=== PATIENT | female | born 1970 | race Caucasian/White ===

== ENCOUNTER → 2017-11-13 08:24 | Outpatient (CLI) | payer BC, SELFPAY ==
--- NOTE | 2017-11-13 08:29 | MM_ITS ---
.. MM Dig screening mamm BI w/CAD CAD Screening ORDERING PHYSICIAN : Meng Waters MD PATIENT AGE: 47 years GENDER: Female COMPARISON: Previous mammograms: June 20 June 2015 INDICATION: 47-year-old. No hormones and has both ovaries. Currently left breast soreness and tenderness for 3 weeks. Patient has had previous cyst aspiration needle biopsy left breast. Benign results. Family history. Mother with breast cancer in her 40s premenopausal. Paternal grandmother also with breast cancer TECHNIQUE: Standard CC and MLO images were obtained. R2 CAD reviewed. FINDINGS: Inhomogeneous dense breast tissue bilaterally. The prior films however very helpful and supportive this is a stable overall pattern similar to studies from 2014. No new dominant mass nor suspicious calcifications in either breast. Ultrasound may be useful compliment to mammography in breast of this increased density character particularly if any palpable areas arise RIGHT & LEFT BREAST:Dense fibroglandular elements are seen throughout but most evident towards central and upper-outer quadrant both right and left breast.. No significant new findings nodularity laterally similar to previous studies Overall adequate stable appearance both breast =IMPRESSION:===== No significant new findings. Stable bilateral mammogram. Dense inhomogeneous breast bilaterally decreases to the mammography. Would also tend to encourage self breast examination. If any palpable area should arise ultrasound be useful compliment mammography in breast of this increased density Follow-up bilateral annual mammogram 1 year BI-RADS Category: 2 Benign Finding(s) RECOMMENDED FOLLOW-UP: 1YR - 1 YEAR FOLLOW-UP (A letter has been sent to the patient regarding results of the study.)
== END ==
PROVIDERS: Family Provider Family Medicine; PCP Family Medicine; Visit Provider Family Medicine
DX: Z12.31 Encounter for screening mammogram for malignant neoplasm of breast (principal)
CPT/HCPCS: 77067

== ENCOUNTER → 2017-11-17 08:32 | Outpatient (CLI) | payer BC, SELFPAY ==
--- NOTE | 2017-11-17 08:39 | XR_ITS ---
XR thoracic spine 3V COMPARISON: PA and lateral chest 11/15/2017 HISTORY: Possible abnormality adjacent to T9 vertebral body seen on chest film TECHNIQUE: AP and lateral views and swimmer's view cervicothoracic junction FINDINGS: There is normal curvature and alignment. All thoracic vertebrae appear intact. All pedicles are intact. There is no paraspinal mass. The questionable opacity seen on the chest film is not definitely seen on the thoracic spine films. IMPRESSION: Negative thoracic spine
== END ==
PROVIDERS: PCP Family Medicine; Visit Provider Nurse Practitioner Family
DX: R93.8 Abnormal findings on diagnostic imaging of other specified body structures (principal)
CPT/HCPCS: 72072

== ENCOUNTER → 2018-06-04 10:15 | Outpatient (CLI) | payer BC, SELFPAY ==
--- NOTE | 2018-06-04 10:26 | XR_ITS ---
XR hip RT 2-3V w/pelvis, XR hip LT 2-3V w/pelvis Ordering Physician: Maria Guadalupe Arellano MD Patient Age: 48 years: Female HISTORY: ITS.REASON: HIP PAIN No trauma. Bilateral hip pain most pronounced the left. Pain 6 months TECHNIQUE: Right hip: AP frog-leg view Left hip: AP frog-leg view AP pelvis included COMPARISON :July 2017 left hip and AP pelvis ======== RIGHT HIP: AP frog-leg view The right hip joint spaces well-maintained. The femoral head and neck and trochanteric appear intact. Femoral head normal contour and density. Small benign herniation pit incidentally noted at right subcapital region ===== LEFT HIP: AP frog-leg view Left hip joint space well maintained. Left femoral head abnormal density and contour. Femoral neck and trochanteric region unremarkable AP pelvis. No significant findings at the pelvis sacrum and SI joints unremarkable. Iliac bone intact. Acetabula region appear intact The hips appear symmetrical. Superior and inferior ramus and pubis unremarkable. The left hip shows no change since July 2017 IMPRESSION: ...... Negative/ & normal Right and Left Hip. Negative AP pelvis.
== END ==
PROVIDERS: PCP Family Medicine; Visit Provider Emergency Medicine
DX: M25.552 Pain in left hip (principal)
CPT/HCPCS: 73502

== ENCOUNTER 2018-06-21 08:56 | Outpatient (RCR) | payer BC, SELFPAY ==
--- NOTE | 2018-06-21 10:05 | HMH.PTOPEV ---
PT Outpatient Evaluation Rehab PT Outpatient Evaluation Start: 06/21/18 09:32 Freq: Status: Active Protocol: Document 06/21/18 09:33 SALINA (Rec: 06/21/18 10:05 SALINA [id number]) Electronically Signed By Chago Mansfield, PT 06/21/18 09:33 Outpatient Therapy Subjective History Subjective History Pt reports insidious onset L sided LBP ~6 months ago. Pt reports L LE s/s from L glut mm area down to L ankle, N&T, pain, and some weakness. Pt reports s/s relief with trxn force applied to L LE. Chief Complaint Pain Paresthesia Weakness Symptom Type Ache Sharp Dull Stabbing Numbness Tingling Symptoms Relieved By Rest/Positioning Symptoms Aggravated By Bending/Stooping Physical Activity Walking Lifting Prior Functional Limitations Lifting Walking Bending/Stooping Current Functional Limitations Lifting Housework Sitting Walking Bending/Stooping Symptom Description Constant but Variable Level of pain today (0-10) 7 Pain scale - at its best (0-10) 5 Pain scale - at its worst (0-10) 10 Lumbopelvic Eval Posture Thoracic Spine Posture Standing Position Neutral Lumbar Spine Posture Standing Position Neutral Assistive device Assistive Devices None / NA Gait Observation General Gait Pattern Observation Antalgic Gait Palapation tenderness left lumbar spinal tenderness Yes: 3/4 paraspinal tenderness Yes: 3/4 buttock tenderness Yes: 3/4 Accessory Movement L-spine Vertebrae Accessory Movements Central P/A Barnard that Elicit Symptoms L4 right L5 right S1 right Range of Motion Lumbar Spine Active Flexion Range of 0-60 Motion (degrees) Lumbar Spine Active Extension Range of 0-10 Motion (degrees) Left Lumbar Spine Lateral Flexion Active 0-15 Range of Motion (degrees) Right Lumbar Spine Lateral Flexion 0-20 Active Range of Motion (degrees) Lumbar Spine ROM Limitations Pain Manual Muscle Test Right Knee Extension Str
== END 2018-06-21 09:00 | disposition home or self-care (01) ==
LOC: PT 08:56
PROVIDERS: Visit Provider Emergency Medicine
DX: G57.02 Lesion of sciatic nerve, left lower limb (principal)
CPT/HCPCS: 97010; 97012; 97014; 97110; 97163; G0283

== ENCOUNTER → 2018-11-02 11:08 | Outpatient (CLI) | payer BC, SELFPAY | PROVIDERS: Visit Provider Podiatrist | DX: L03.031 Cellulitis of right toe (principal) | CPT/HCPCS: 87070; 87077; 87186; 87205 ==

== ENCOUNTER 2020-08-25 19:50 | Emergency (ER) | payer OTHER, SELFPAY ==
[2020-08-25 20:10] VITALS: BP 140/86; PULSE 77; RESP 20; TEMP 37.2; O2SAT 99; BMI 26.2
[2020-08-25 20:31] LABS: UTC Strep Screen (Rapid) Negative (Negative)
--- NOTE | 2020-08-25 20:37 | HMH.EDUTC ---
[facility] [place] Clinical Impression: URI (upper respiratory infection) Qualifiers: URI type: unspecified URI Qualified Code(s): J06.9 - Acute upper respiratory infection, unspecified Disposition: Home, Self-Care Condition on Discharge: Good Instructions: Sore Throat, Sinusitis, DI for COVID-19 (Suspected or Confirmed ), Coronavirus Disease 2019 Additional Instructions: *Monitor Temp, Over the counter Motrin or Tylenol as directed/as needed Tylenol every 4 hours and Motrin every 6 hours (as long as your family doctor has told you that you can take it) for fever or pain. and straight to ER if unable to lower temp less than 101.0 after medication given *Warm salt water gargles may help to soothe the throat *Throat Lozenges *Warm fluids like tea with honey may help to soothe the throat *Sleep elevated *Humidifier/Vaporizer Your throat swab was sent for culture. Those results are typically sent to your primary care. Be sure to follow up in 2-3 days with your family doctor/primary care physician if no improvement so they can review those result and treat if necessary. If you don?t have a primary care doctor, I recommend you get one but in the mean time, you will have to return to a walk in clinic Follow up IMMEDIATELY for new or worsening symptoms or no Noticeable improvement over the next 48-72 hours. 911 for difficulty breathing or swallowing You were tested for today for COVID19 your test result should be back in the next 24-48 hours, you may call to the [facility] to see if your test results are back in the next 48 hours [phone] [facility] hours are 9am-9pm You was given a handout with instructions for Self Quarantine and Self isolation for while you wait on test results and what to do if they are positive If you are positive the Health Dept will be contacting you also Prescriptions: methylPREDNISolone [Medrol 4mg tab] 4 mg PO DIRECTED #21 tab Transmission Status: Pending to Clinic [facility] Azithromycin [Z-Yuriy 250mg Tab] 250 mg PO DIRECTED #6 tab Transmission Status: Pending to Clinic Pharmacy [facility] Referrals: Meng Waters MD [Primary Care Provider] - As needed Forms: Work/School Release Time of Disposition: 20:41 Medical Decision Making - Musa Inquiry Pt receiving controlled substance: No Musa was queried for this patient: No Vital Signs: 08/25/20 20:10 Temperature 99.0 F Temperature Source Oral Pulse Rate [Right Brachial] 77 Respiratory Rate 20 Blood Pressure [Right Arm] 140/86 Blood Pressure Mean [Right Arm] 104 Blood Pressure Source [Right Arm] Automatic Cuff Blood Pressure Position [Right Arm] Sitting 02 Sat by Pulse Oximetry 99 Oxygen Delivery Method Room Air - Lab Data Lab results reviewed: Yes: I reviewed the patient's lab results. Lab Results 08/25/20 20:16: Strep Scn Rapid Clinic Negative Orders (Tests/Meds): ORDERS Category Date Time Status Covid-19 Nasal PCR Sendout P&C Stat Lab 08/25/20 20:17 Ordered Strep Screen Confirmation Stat Micro 08/25/20 20:16 Received Medical Decision Narrative: Patient state that she has take azithromycin and medrol dose pack before without reaction or complications [facility] [place] - General Stated complaint: sore throa headache congestion Time Seen by Provider: 08/25/20 20:37 Mode of Arrival: Ambulatory Source of Information: Patient Limitations: No Limitations Description of Symptoms (Recalled from Triage Doc. by RN): PATIENT C/O SORE THROAT, CONGESTION, HEADACHES, FATIGUE SINCE YESTERDAY. RECENT TRAVEL TO [facility] Symptoms (Recalled from RN notes): Yes Resp Symptoms (Recalled from RN notes): No Skin Symptoms (Recalled from RN notes): No MS Symptoms (Recalled from RN notes): No Functional Status (Recalled from RN notes): WNL - History of Present Illness Provider Complaint: Patient states that she has been traveling from [place] States that she noticed she was having sore throat, sinus congestion, headache, loss of v
[2020-08-25 20:40] VITALS: BP 140/86; PULSE 77; RESP 20; TEMP 37.2; O2SAT 99
[2020-08-27 10:11] LABS: Covid-19 Nasal PCR Sendout P&C Negative
== END 2020-08-25 20:49 | disposition home or self-care (01) ==
PROVIDERS: Emergency Provider Nurse Practitioner; PCP Family Medicine
DX: Z20.822 Contact with and (suspected) exposure to COVID-19 (principal); J06.9 Acute upper respiratory infection, unspecified; F17.210 Nicotine dependence, cigarettes, uncomplicated; Z79.899 Other long term (current) drug therapy
CPT/HCPCS: 87880; 99202; G0463; U0004

== ENCOUNTER → 2020-10-28 09:47 | Outpatient (CLI) | payer OTHER, SELFPAY ==
--- NOTE | 2020-10-28 | XR_ITS ---
PROCEDURE: XR WRIST RT MIN 3V CLINICAL INDICATION: COMPARISON: No exams were available for comparison FINDINGS: No fracture or dislocation. No lytic or blastic change. There is normal mineralization. The joint spaces are well-preserved. No significant degenerative/arthritic changes. No erosive changes evident. Other findings:Old screw holes present in the distal shaft of the ulna IMPRESSION: No acute findings. Dictated by: Musa Barragan MD 10/28/2020 16:29 Musa Barragan MD in [place] 10/28/2020 16:29
--- NOTE | 2020-10-28 | XR_ITS ---
PROCEDURE: XR HAND RT MIN 3V CLINICAL INDICATION: PAIN COMPARISON: No exams were available for comparison FINDINGS: No fracture or dislocation. No lytic or blastic change. There is normal mineralization. Mild osteoarthritic changes are present involving the DIP joint of the 3rd digit and the interphalangeal joint of the 1st digit. Other findings:Lucencies with sclerotic margins are present in the distal ulna consistent with screw holes IMPRESSION: Mild osteoarthritic change Dictated by: Musa Barragan MD 10/28/2020 16:28 Musa Barragan MD in [place] 10/28/2020 16:28
[2020-10-28 10:54] LABS: Basophils # 0.1 K/mm3 (0-0.2); Basophils % 0.6 % (0.1-2.0); Eosinophils # 0.2 K/mm3 (0.0-0.4); Eosinophils % 1.9 % (0.1-12.0); Hematocrit 45.3 % (37.0-47.0); Hemoglobin 15.1 g/dL (12.2-16.2); Lymphocytes # 3.2 K/mm3 (0.7-4.5); Lymphocytes % 29.5 % (10-50); Mean Corpuscular HGB Conc 33.2 g/dL (31.8-35.4); Mean Corpuscular Hemoglobin 29.1 pg (27.0-31.2); Mean Corpuscular Volume 87.7 fl (81-99); Mean Platelet Volume 7.7 fl (7.4-10.4); Monocytes # 0.5 K/mm3 (0.1-1.0); Monocytes % 4.2 % (1.7-9.3); Neutrophils # 6.9 K/mm3 (1.8-7.8); Neutrophils % 63.7 % (37.0-80.0); Platelet Count 317 K/mm3 (142-424); Red Blood Count 5.17 M/mm3 (4.20-5.40); Red Cell Distribution Width 13.1 % (11.5-17.5); White Blood Count 10.8 K/mm3 (4.8-10.8)
== END ==
PROVIDERS: PCP Family Medicine; Visit Provider Physician Assistant
DX: Z20.822 Contact with and (suspected) exposure to COVID-19 (principal); M79.641 Pain in right hand; M25.531 Pain in right wrist
CPT/HCPCS: 36415; 73110; 73130; 85025; U0003

== ENCOUNTER → 2020-11-09 10:15 | Outpatient (CLI) | payer OTHER, SELFPAY ==
[2020-11-09 11:10] LABS: Uric Acid 5.5 mg/dl (2.5-6.2)
[2020-11-09 11:58] LABS: Erythrocyte Sedimentation Rate 16 mm/hr (0-20)
[2020-11-10 13:15] LABS: RA Latex Turbid. <10.0 IU/mL (0.0-13.9)
[2020-11-11 17:21] LABS: Antinuclear Antibodies, IFA Negative (.)
== END ==
PROVIDERS: Visit Provider Physician Assistant
DX: M25.50 Pain in unspecified joint (principal)
CPT/HCPCS: 36415; 84550; 85651; 86038; 86431

== ENCOUNTER → 2020-11-13 10:08 | Outpatient (CLI) | payer OTHER, SELFPAY ==
--- NOTE | 2020-11-13 10:10 | MM_ITS ---
PROCEDURE: MM DIG SCREENING MAMM BI W/CAD Digital Breast Tomosynthesis Included CLINICAL INDICATION: SCREENING There is a history of breast cancer patient's mother diagnosed in her 40s, the patient's paternal aunt diagnosed at age 48 and maternal grandmother age unknown. There has been a previous biopsy left breast for benign disease. COMPARISON: MG DMDB DIG MAMM-DX RADHA from 06/15/2015 MG DMSB DIG MAMM-SCREEN RADHA from 06/16/2016 MG SCBI MM Dig screening mamm BI w/CAD from 11/13/2017 TECHNIQUE: Standard CC and MLO images and 3D Tomosynthesis was obtained. R2 CAD reviewed. FINDINGS: There is a diffusely dense and heterogenic parenchymal pattern lessening the sensitivity of mammography. There is a mole marker left breast. There is a benign-appearing microcalcification in each breast. There is a stable benign-appearing nodular density upper-outer quadrant right breast. There is no suspicious lesion and no suspicious microcalcifications. IMPRESSION: Diffusely dense parenchymal pattern with no suspicious lesions seen, however recommend monthly breast self-examination BI-RAD Category: 2 Benign Finding(s) FOLLOW-UP: 1YR 1 Year Follow-up (A letter has been sent to the patient regarding results of the study.) Dictated by: Dr. Haris Jane MD 11/15/2020 16:21 Dr. Haris Jane MD in [place] 11/15/2020 16:21
== END ==
PROVIDERS: PCP Family Medicine; Visit Provider Physician Assistant
DX: Z12.31 Encounter for screening mammogram for malignant neoplasm of breast (principal)
CPT/HCPCS: 77063; 77067

== ENCOUNTER → 2021-03-26 10:04 | Outpatient (CLI) | payer OTHER, SELFPAY ==
--- NOTE | 2021-03-26 10:09 | XR_ITS ---
PROCEDURE: XR CHEST 2V CLINICAL HISTORY: HEMOPTYSIS COMPARISON: CR CXR CHEST(2 VIEWS-NOT PORTABLE) from 05/08/2017 CR CXR2V XR chest 2V from 11/15/2017 FINDINGS: The cardiomediastinal silhouette and pulmonary vascularity are within normal limits. The lungs are clear without infiltrates, suspicious nodules, or pleural effusions. No acute bony abnormalities. IMPRESSION: No acute findings. Dictated by: Musa Barragan MD 03/26/2021 11:18 Musa Barragan MD in [place] 03/26/2021 11:18
--- NOTE | 2021-03-26 10:09 | XR_ITS ---
PROCEDURE: XR SHOULDER LT MIN 2V CLINICAL INDICATION: LT SHOULDER PAIN COMPARISON: No exams were available for comparison FINDINGS: No fracture or dislocation. No lytic or blastic change. There is normal mineralization. The joint spaces are well-preserved. No significant degenerative/arthritic changes. No erosive changes evident. Other findings:None. IMPRESSION: No acute findings. Dictated by: Musa Barragan MD 03/26/2021 11:17 Musa Barragan MD in [place] 03/26/2021 11:17
== END ==
PROVIDERS: PCP Physician Assistant; Visit Provider Physician Assistant
DX: M25.512 Pain in left shoulder (principal); R04.2 Hemoptysis
CPT/HCPCS: 71046; 73030

== ENCOUNTER 2021-04-12 14:14 | Emergency (ER) | payer OTHER, SELFPAY ==
[2021-04-12 17:00] VITALS: BP 0/0; PULSE 0; RESP 0; TEMP -17.7; TEMP 0
== END 2021-04-12 17:02 | disposition left against medical advice (07) ==
LOC: UTC 14:16
PROVIDERS: Emergency Provider Nurse Practitioner; PCP Family Medicine
DX: Z53.21 Procedure and treatment not carried out due to patient leaving prior to being seen by health care provider (principal)

== ENCOUNTER → 2021-04-30 16:17 | Outpatient (CLI) | payer OTHER, SELFPAY ==
--- NOTE | 2021-04-30 16:18 | MR_ITS ---
PROCEDURE INFORMATION: Exam: MR Left Upper Extremity Joint Without Contrast; Shoulder Exam date and time: 04/30/2021 4:18 PM Age: 51 years old Clinical indication: Pain; Shoulder; Left; Additional info: Shoulder pain. Unable to lift arm [id number]. No injury or trauma. Shoulder pain. Prior x-ray 03-26-21 TECHNIQUE: Imaging protocol: MR of the Left upper extremity without contrast. Exam focused on the shoulder. COMPARISON: CR XR SHOULDER LT MIN 2V 03/26/2021 10:11 AM FINDINGS: Bones and cartilage: Mild bone marrow edema surrounds the acromioclavicular joint and extends into the acromion. In the absence of a discrete injury, recommend correlation with repetitive microtrauma to produce a stress reaction. The acromioclavicular joint demonstrates normal alignment without significant degenerative change. There is no acute fracture or dislocation. No aggressive bone lesions are present. The undersurface of the acromion has a normal curvature, consistent with a type II acromion. Joint spaces: No significant joint effusion. Glenoid labrum: Unremarkable. No evidence of tear. Bursae: A mild amount of fluid is present in the subacromial-subdeltoid bursa. Supraspinatus tendon: Moderate tendinosis involves the supraspinatus tendon. Infraspinatus tendon: Low-grade partial-thickness tearing involves the bursal surface of the infraspinatus tendon. Moderate tendinosis involves the adjacent intact infraspinatus tendon. Subscapularis tendon: No tear or significant tendinosis involves the subscapularis tendon. Teres minor tendon: No tear or significant tendinosis involves the teres minor tendon. Tendon of biceps brachii: The long head of the biceps tendon is normally situated within the bicipital groove. Glenohumeral ligaments: Unremarkable. Muscles: The rotator cuff musculature demonstrates no significant edema or atrophy. Soft tissues: Moderate soft tissue edema surrounds the acromioclavicular joint IMPRESSION: 1. Nonspecific bone marrow edema and soft tissue edema surrounding the acromioclavicular joint without malalignment or significant degenerative change. Recommend correlation with repetitive microtrauma in the absence of a discrete traumatic event. 2. Low-grade partial-thickness tearing of the infraspinatus tendon bursal surface, superimposed on moderate tendinosis. 3. Moderate supraspinatus tendinosis. 4. Mild subacromial-subdeltoid bursitis.
== END ==
PROVIDERS: PCP Family Medicine; Visit Provider Nurse Practitioner Family
DX: M25.512 Pain in left shoulder (principal)
CPT/HCPCS: 73221

== ENCOUNTER → 2021-11-19 10:52 | Outpatient (CLI) | payer OTHER, SELFPAY ==
--- NOTE | 2021-11-19 11:01 | US_ITS ---
FINAL REPORT CLINICAL HISTORY: CHOLECYSTITIS FINDINGS: Ultrasound images of the right upper quadrant were obtained. The liver parenchyma is increased echogenicity. The gallbladder is well visualized and the wall appears normal. There is minimal sludge in the gallbladder. There are no gallstones. The common duct is normal. Limited images of the right kidney are unremarkable. IMPRESSION: Fatty infiltration of the liver. Minimal sludge in the gallbladder. Reviewed, Interpreted and Dictated by Geo Carranza MD Transcribed by Yahir Brice Authenticated by Geo Carranza MD on 11/19/2021 01:02:38 PM [facility]
== END ==
PROVIDERS: PCP Family Medicine; Visit Provider Family Medicine
DX: K81.9 Cholecystitis, unspecified (principal)
CPT/HCPCS: 76705

== ENCOUNTER → 2021-11-26 10:48 | Outpatient (CLI) | payer OTHER, SELFPAY ==
--- NOTE | 2021-11-26 10:55 | FL_ITS ---
FINAL REPORT CLINICAL HISTORY: epigastric pain FINDINGS: UPPER GI WITH SBFT UPPER GI EXAM HISTORY: Abdominal pain, nausea. PROCEDURE: The patient ingested barium. Effervescent crystals were also administered. Spot and overhead films were obtained. FINDINGS: The esophagus is normal. There is no hiatal hernia. There is no gastroesophageal reflux. Peristalsis is normal. The rugal fold pattern of the stomach is normal. The duodenal bulb is normal. FLUOROSCOPY TIME: 1 minute IMPRESSION: Normal upper GI. SBFT: The traveling inventory associate film is normal. There is no evidence of obstruction. The mucosal fold pattern is normal. The terminal ilium is normal. IMPRESSION: Normal SBFT. Reviewed, Interpreted and Dictated by Geo Carranza MD Transcribed by DEBBIE Rodriguez Authenticated by Geo Carranza MD on 12/03/2021 11:16:[address] [facility]
== END ==
PROVIDERS: PCP Family Medicine; Visit Provider Family Medicine
DX: R10.13 Epigastric pain (principal)
CPT/HCPCS: 74246; 74248

== ENCOUNTER → 2021-12-08 10:18 | Outpatient (CLI) | payer OTHER, SELFPAY ==
--- NOTE | 2021-12-08 10:22 | NM_ITS ---
FINAL REPORT CLINICAL HISTORY: EPIGASTRIC PAIN 10:30am 8.37 mci tc choletec 1.4 mcg cck no pain with cck FINDINGS: Sequential anterior projection images of the abdomen were obtained after the intravenous injection of 8.37 mCi technetium 99m Choletec. There is normal uptake of radiotracer by the liver. The bile ducts are visualized by 15 minutes. Gallbladder activity is seen by 30 minutes. Bowel activity is noted by 20 minutes. After 1 hour, 1.0 ?g of CCK was injected intravenously for calculation of gallbladder ejection fraction. The gallbladder ejection fraction is 82%, which is within normal limits. IMPRESSION: No evidence of cystic duct or bile duct obstruction. Normal gallbladder ejection fraction of 82%. Reviewed, Interpreted and Dictated by Nate Jeffries III, MD Transcribed by Yahir Brice Authenticated by Nate Jeffries III, MD on 12/08/2021 01:04:55 PM [facility]
== END ==
PROVIDERS: PCP Family Medicine; Visit Provider Family Medicine
DX: R10.13 Epigastric pain (principal)
CPT/HCPCS: 78227; A9537; J2805

== ENCOUNTER → 2021-12-17 08:21 | Outpatient (CLI) | payer OTHER, SELFPAY ==
--- NOTE | 2021-12-17 08:25 | MM_ITS ---
PROCEDURE INFORMATION: Exam: MG Bilateral Screening 3D Mammography Exam date and time: 12/17/2021 8:24 AM Age: 51 years old Clinical indication: Screening mammogram. TECHNIQUE: Imaging protocol: Bilateral Screening tomosynthesis and 2D mammography including computer-aided detection (CAD) when performed. COMPARISON: 1. MG MM DIG SCREENING MAMM BI W/CAD 11/13/2020 10:08 AM 2. MG SCBI MM Dig screening mamm BI w/CAD 11/13/2017 8:39 AM 3. MG DMSB DIG MAMM-SCREEN RADHA 06/16/2016 8:54 AM 4. MG DMDB DIG MAMM-DX RADHA 06/15/2015 2:33 PM FINDINGS: MAMMOGRAPHY: Breast composition: The breast is heterogeneously dense, which may obscure small masses. Mass: None. Architectural distortion: No new or suspicious architectural distortion. Calcifications: No new or suspicious calcifications are present Asymmetric density: No new or suspicious asymmetric density is present Skin thickening: None. Axillary adenopathy: None. IMPRESSION: No mammographic evidence of malignancy. Recommend annual screening mammography unless otherwise clinically indicated. ASSESSMENT: BI-RADS category 1: Negative
== END ==
PROVIDERS: PCP Family Medicine; Visit Provider Family Medicine
DX: Z12.31 Encounter for screening mammogram for malignant neoplasm of breast (principal)
CPT/HCPCS: 77063; 77067

== ENCOUNTER → 2022-01-05 10:40 | Outpatient (CLI) | payer OTHER, SELFPAY ==
--- NOTE | 2022-01-05 10:47 | XR_ITS ---
FINAL REPORT CLINICAL HISTORY: LT HIP PAIN COMPARISON: June 04, 2018 FINDINGS: 2 views of the left hip were obtained. There is no acute fracture or dislocation. The joint spaces are intact. There are no soft tissue abnormalities. IMPRESSION: No acute process. Reviewed, Interpreted and Dictated by Nate Jeffries III, MD Transcribed by Yahir Brice Authenticated by Nate Jeffries III, MD on 01/05/2022 12:45:47 PM [facility]
--- NOTE | 2022-01-05 10:47 | XR_ITS ---
FINAL REPORT CLINICAL HISTORY: RT HIP PAIN COMPARISON: June 04, 2018 FINDINGS: 2 views of the right hip and an AP pelvis were obtained. There is no acute fracture or dislocation. The joint spaces are intact. There are no soft tissue abnormalities. IMPRESSION: No acute process. Reviewed, Interpreted and Dictated by Nate Jeffries III, MD Transcribed by Yahir Brice Authenticated by Nate Jeffries III, MD on 01/05/2022 12:45:51 PM [facility]
== END ==
PROVIDERS: PCP Family Medicine; Visit Provider Physician Assistant
DX: M25.561 Pain in right knee; M25.551 Pain in right hip
CPT/HCPCS: 73502

== ENCOUNTER → 2022-01-10 08:16 | Outpatient (CLI) | payer OTHER, SELFPAY ==
--- NOTE | 2022-01-10 08:22 | XR_ITS ---
FINAL REPORT CLINICAL HISTORY: ACUTE RIGHT KNEE PAIN FINDINGS: Three views of the right knee reveal no evidence of fracture or dislocation. The bony alignment is normal. The joint spaces are preserved. There is no evidence of joint effusion. No localized soft tissue abnormality is identified. IMPRESSION: No acute abnormality identified. Reviewed, Interpreted and Dictated by Nate Jeffries III, MD Transcribed by Tory Morelos Authenticated and . [facility]
== END ==
PROVIDERS: PCP Family Medicine; Visit Provider Physician Assistant
DX: M25.561 Pain in right knee (principal)
CPT/HCPCS: 73562

== ENCOUNTER → 2022-06-22 08:45 | Outpatient (CLI) | payer OTHER, SELFPAY ==
[2022-06-22 09:08] LABS: Influenza A, PCR Not Detected (NotDetected); Influenza B, PCR Not Detected (NotDetected)
[2022-06-22 09:16] LABS: Basophils # 0.1 K/mm3 (0-0.2); Basophils % 1.6 % (0.1-2.0); Eosinophils # 0.2 K/mm3 (0.0-0.4); Eosinophils % 3.4 % (0.1-12.0); Hematocrit 43.2 % (37.0-47.0); Hemoglobin 14.4 g/dL (12.2-16.2); Lymphocytes % 49.3 % (10-50); Mean Corpuscular HGB Conc 33.3 g/dL (31.8-35.4); Mean Corpuscular Hemoglobin 29.4 pg (27.0-31.2); Mean Corpuscular Volume 88.2 fl (81-99); Mean Platelet Volume 8.4 fl (7.4-10.4); Monocytes # 0.3 K/mm3 (0.1-1.0); Monocytes % 4.8 % (1.7-9.3); Neutrophils # 2.5 K/mm3 (1.8-7.8); Neutrophils % 40.8 % (37.0-80.0); Platelet Count 332 K/mm3 (142-424); Red Blood Count 4.89 M/mm3 (4.20-5.40); Red Cell Distribution Width 13.9 % (11.5-17.5); White Blood Count 6.1 K/mm3 (4.8-10.8)
[2022-06-22 10:37] LABS: Coronavirus 19, PCR Detected (NotDetected)
== END ==
PROVIDERS: PCP Family Medicine; Visit Provider Physician Assistant
DX: U07.1 COVID-19 (principal)
CPT/HCPCS: 36415; 85025; C9803; U0003; U0005

== ENCOUNTER → 2022-12-27 08:18 | Outpatient (CLI) | payer OTHER, SELFPAY ==
--- NOTE | 2022-12-27 08:25 | MM_ITS ---
PROCEDURE INFORMATION: Exam: MG Bilateral Screening 3D Mammography Exam date and time: 12/27/2022 8:24 AM Age: 52 years old Clinical indication: Screening mammogram TECHNIQUE: Imaging protocol: Bilateral Screening tomosynthesis and 2D mammography including computer-aided detection (CAD) when performed. COMPARISON: 1. MG MM DIG SCREENING MAMM BI W/CAD 12/17/2021 8:24 AM 2. MG MM DIG SCREENING MAMM BI W/CAD 11/13/2020 10:08 AM 3. MG SCBI MM Dig screening mamm BI w/CAD 11/13/2017 8:39 AM 4. MG DMSB DIG MAMM-SCREEN RADHA 06/16/2016 8:54 AM FINDINGS: MAMMOGRAPHY: Breast composition: The breast is heterogeneously dense, which may obscure small masses. Mass: None. Architectural distortion: No new or suspicious architectural distortion. Calcifications: No new or suspicious calcifications are present Asymmetric density: No new or suspicious asymmetric density is present Skin thickening: None. Axillary adenopathy: None. IMPRESSION: No mammographic evidence of malignancy. Recommend annual screening mammography unless otherwise clinically indicated. ASSESSMENT: BI-RADS category 1: Negative
== END ==
PROVIDERS: PCP Family Medicine; Visit Provider Family Medicine
DX: Z12.31 Encounter for screening mammogram for malignant neoplasm of breast (principal)
CPT/HCPCS: 77063; 77067

== ENCOUNTER → 2023-01-11 09:45 | Outpatient (CLI) | payer OTHER, SELFPAY ==
--- NOTE | 2023-01-11 15:09 | PC.NURSE ---
PFT completed without incident. Albuterol 0.083% given via HHN, per protocol, Pt tolerated tx well.
== END ==
LOC: RT 09:47
PROVIDERS: PCP Family Medicine; Visit Provider Physician Assistant
DX: J98.01 Acute bronchospasm (principal)
CPT/HCPCS: 94060; 94726; 94729

== ENCOUNTER → 2023-04-25 09:12 | Outpatient (CLI) | payer OTHER, SELFPAY ==
[2023-04-26 09:15] LABS: Coronavirus 19, PCR Not Detected (NotDetected); Influenza A, PCR Not Detected (NotDetected); Influenza B, PCR Not Detected (NotDetected)
== END ==
LOC: LAB 09:13
PROVIDERS: PCP Family Medicine; Visit Provider Family Medicine
DX: Z20.822 Contact with and (suspected) exposure to COVID-19 (principal)
CPT/HCPCS: 87581; 87632; 87636; 87798

== ENCOUNTER 2023-10-02 11:44 | Outpatient (CLI) | payer BC, SELFPAY ==
--- NOTE | 2023-10-02 | XR_ITS ---
FINAL REPORT CLINICAL HISTORY: pain..no trauma COMPARISON: None FINDINGS: AP, oblique and lateral views of the left foot were obtained. There is no prior exam for comparison. There is no acute fracture or dislocation. The joint spaces are preserved. Soft tissues are normal. IMPRESSION: No acute osseous abnormality of the left foot. Reviewed, Interpreted and Dictated by Jeri Thorpe MD Transcribed by Temitope Callejas Authenticated and [facility]
--- NOTE | 2023-10-02 | XR_ITS ---
FINAL REPORT CLINICAL HISTORY: .pain..no truama COMPARISON: None FINDINGS: AP and frog leg views of the left hip were obtained. There is no prior exam for comparison. There is no acute fracture or dislocation. Joint space is preserved. Soft tissues are within normal limits. IMPRESSION: No acute osseous abnormality of the left hip. Reviewed, Interpreted and Dictated by Jeri Thorpe MD Transcribed by Temitope Callejas Authenticated and [facility]
--- NOTE | 2023-10-02 | XR_ITS ---
FINAL REPORT CLINICAL HISTORY: pain...no trauma COMPARISON: None FINDINGS: AP, lateral, and oblique views of the lumbar spine were obtained. There is no acute fracture or acute malalignment. Vertebral body height is preserved. There is mild degenerative disc disease at the thoracolumbar junction.. No acute paraspinal abnormality is identified. IMPRESSION: No acute osseous abnormalities lumbar spine. Reviewed, Interpreted and Dictated by Jeri Thorpe MD Transcribed by Temitope Callejas Authenticated and [facility]
== END 2023-10-02 23:59 ==
PROVIDERS: PCP Family Medicine; Visit Provider Nurse Practitioner Family
DX: M54.9 Dorsalgia, unspecified (principal); M54.50 Low back pain, unspecified; M25.552 Pain in left hip; M79.672 Pain in left foot
CPT/HCPCS: 72110; 73502; 73630

== ENCOUNTER 2023-12-04 13:00 | Outpatient (RCR) | payer BC, SELFPAY ==
--- NOTE | 2023-12-04 14:44 | HMH.RHREAS ---
Rehab Reassessment Rehab OP Re-assessment Start: 10/13/23 15:39 Freq: Status: Active Protocol: Document 12/04/23 14:00 PHOSTEF (Rec: 12/04/23 14:44 PHORNE [id number]) E-signed By Harry Murrieta PT Lower Extremity Functional Index Activities Today, do you or would you have any difficulty at all with: a.Any of your usual work, housework or Moderate difficulty school activities b. Your usual hobbies, recreational or A little bit of difficulty sporting activities c. Getting into or out of the bath No difficulty d. Walking between rooms A little bit of difficulty e. Putting on your shoes or socks A little bit of difficulty f. Squatting Moderate difficulty g. Lifting an object, like a bag of Quite a bit of difficulty groceries from the floor h. Performing light activities around Moderate difficulty your home i. Performing heavy activities around Extreme difficulty or unable your home to perform activity j. Getting into or out of a car A little bit of difficulty k. Walking 2 blocks Quite a bit of difficulty l. Walking a mile Quite a bit of difficulty m. Going up or down 10 stairs (about 1 Quite a bit of difficulty flight of stairs) n. Standing for 1 hour Moderate difficulty o. Sitting for 1 hour Moderate difficulty p. Running on even ground Extreme difficulty or unable to perform activity q. Running on uneven ground Extreme difficulty or unable to perform activity r. Making sharp turns while running fast Extreme difficulty or unable to perform activity s. Hopping Moderate difficulty t. Rolling over in bed A little bit of difficulty LEFI Score Lower Extremity Functional Index Score 35 Oswestry Index Section 1 Pain Intensity The pain comes and goes and is moderate Section 2 Personal Care (Washing,Dresing) change my way of washing or dressing in order to avoid pain Section 3 Lifting Pain prevents me from lifting weights off the floor Section 4 Walking I cannot walk more than 1/2 mile without increasing pain Section 5 Sitting Pain prevents me from sitting for more than 1/2 hour Section 6 Standing I cannot stand more than 1 hour without increasing pain Section 7 Sleeping Because of my pain, my normal night's sleep is less than 6 hours sleep Section 8 Social Life Pain has restricted my social life and I do not go out often Section 9 Traveling I get extra pain while traveling, but it does not compel me to seek al Section 10 Changing Degreee of Pain My pain is neither getting better or worse Score and Risk Level Oswestry Sc 22 Oswestry Risk Level Moderate Disability Rehab Re-assessment Subjective Subjective Pt reports, I think my hip is a little better, but my back still feels about the same. She continues to report intermittent pains moving into the L LE to the knee distally with intermittent numbness in the L foot. She reports pain in 7/10 in the low back on the L side this date. Objective Objective Notes AROM Lumbar Spine (in deg): FLEX= 0-55, EXT= 0-20, L SB= 0 -19, R SB= 0-16. MMT L LE: HIPE FLEX 4/5, HIP ABD 4/5, KNEE FLEX 4/5, KNEE EXT 4/5, ANKLE DF 4/5, ANKLE PF 4/5. TTP: 3/4 L lumbar paraspinals and SI area. Some exaggerated response to stimuli noted. GAIT: Continues to ambulate with mildly antalgic gait pattern on the L LE. Assessment Progress Assessment Slower Than Expected Assessment Notes Pt has shown mild improvements in mobility, but she continues to have significant pain and extensive TTP throughout the L side of her low back. She continues to need skilled intervention to return to prior level of function. Patient goals met ST/ LT Goals Not Met LTG: all Plan Plan Continue per initial POC. Frequency of Therapy 2 x/wk Duration of therapy 4 wks Time and Billing Re-Eval Time 12 Re-Eval Billing Units 1 PHYSICIAN CERTIFICATION: I certify the specified therapy services for Honey Wong are required, authorized, and reviewed every 30 days.
== END 2023-12-04 13:05 | disposition home or self-care (01) ==
LOC: PT 13:00
PROVIDERS: Visit Provider Nurse Practitioner Family
DX: M25.552 Pain in left hip (principal); M54.50 Low back pain, unspecified; M79.672 Pain in left foot
CPT/HCPCS: 20561; 97010; 97012; 97014; 97110; 97140; 97163; 97164; 97530; 97535; G0283

== ENCOUNTER 2024-01-25 08:52 | Outpatient (POV) | payer BC, SELFPAY ==
--- NOTE | 2024-01-25 09:44 | EXP.PAIN.OV ---
HPI Data of Consult Patient: new to practice Consult date: 01/25/24 Requesting Physician: Karen Sanders APRN Primary Care Provider: Zeus Cifuentes MD Consult Narrative Reason for consult: Low back pain, left hip pain History of present illness: Ms. Wong is a 53 year old female who presents today as a new patient. She is referral from Dr. Villaseñor's office. Today she rates her pain a 5 out of 10. Patient states that her pain is all in her low back with radiating symptoms to her left hip and into her buttocks area patient states this is a constant aching, throbbing sensation with numbness and severe pain. Patient states that she has had this pain in the past however it typically goes away on occasion. Patient states this round of pain has been going on since the end of September and has not been decreased in severity since. Patient states that she has been unable to even work due to the worsening pain. Patient has tried meloxicam, Tylenol and ibuprofen along with heat and ice and topicals with minimal relief. Patient denies any prior injections in her low back. Patient has been to physical therapy and completed it with no additional changes. Patient does go to chiropractor therapy and it has helped some however is very temporary. Patient does have a chronic neck pain history with prior neck fusion done by Max Sanders at [facility]. Patient does state her current pain interferes with her ability perform activities of daily living such as cooking and cleaning. She is interested in any help we may be able to provide. Her Musa has been reviewed and is appropriate. CC: Karen Sanders APRN [facility] Disclaimer: The information contained in this section may have been updated after the patient was seen, as this information can be updated by other users. Medical History (Updated 01/25/24 @ 09:48 by Karen Sanders APRN) Trigger finger Depression HTN (hypertension) GERD (gastroesophageal reflux disease) Surgical History (Updated 01/25/24 @ 09:01 by Margarette Soriano RN) History of bladder surgery History of partial hysterectomy Family History (Updated 01/25/24 @ 09:00 by Margarette Soriano RN) Other Unknown family medical history Social History (Updated 01/25/24 @ 09:02 by Margarette Soriano RN) Smoking Status: Current every day smoker tobacco type: cigarettes alcohol intake: never substance use type: denies use current occupational status: other Travel in the last 8 weeks: None Review of Systems Review of Systems Review of systems:: pertinent systems reviewed and negative unless documented below Review of systems (narrative): Review of Systems: General: No recent weight changes, no fever, no sleep disturbances Respiratory: No cough, no shortness of air, no recurring pulmonary infections Cardiovascular/peripheral vascular: No chest pain, no palpitations, no edema, no shortness of breath Gastrointestinal: No new onset incontinence, normal bowel movements reported Genitourinary: No new onset incontinence Musculoskeletal: Low back pain, left hip pain Psychiatric: [Normal mood/affect] Neurological: [Denies weakness in extremities], [denies balance issues] Meds Home Medications and Allergies Home Medications Medication Instructions Recorded Confirmed Type clindamycin HCl 300 mg capsule 300 mg PO TID infection 10 days 11/02/18 11/02/18 Rx #30 caps ondansetron HCl 4 mg tablet 4 mg PO Q6H PRN nausea #30 tabs 11/02/18 Rx (Zofran) doxycycline hyclate 100 mg tablet 100 mg PO BID #28 tabs 11/05/18 Rx azithromycin 250 mg tablet 250 mg PO DIRECTED #6 tabs 08/25/20 Rx methylprednisolone 4 mg tablet 4 mg PO DIRECTED #21 tabs 08/25/20 Rx New Prescriptions to Start Prescriptions: Allergies Allergy/AdvReac Type Severity Reaction Status Date / Time cephalexin Allergy Unknown Verified 01/25/24 09:03 egg Allergy Verified 08/25/20 20:35 Objective Narrative: Physical Exam: General: Alert and oriented x3, no acute distress, pleasant and cooperative Lungs: Respirations even and unlabored, symmetrical chest expansion Eyes: PERRL Musculoskeletal: Flexion and extension of lumbar [spine] somewhat guarded secondary to pain, [antalgic gait noted] point tenderness along left SI with positive left Anisa's, Caesar's, Gaenslen's, compression and distraction exam Neurological: Speech clear, no gross sensory deficit Additional findings Additional findings: Lumbar MRI without contrast Findings: The marrow signal is age-appropriate. Straightening of the lumbar lordosis with intact vertebral body heights and spinal alignment. Conus is not studied in detail terminating at L1-L2. There is minor disc desiccation at L2-L3. Remaining interspaces demonstrate normal signal and height. At L5-S1 there is moderate bilateral facet arthropathy without significant spinal stenosis or neuroforaminal narrowing. At L4-L5 there is mild left facet arthropathy without spinal stenosis or neuroforaminal narrowing. The remainder of the visualized interspaces are unremarkable. Assessment and Plan *Assessment and plan (1) Sacroiliitis: Status: Acute Category: Medical Code(s): M46.1 - Sacroiliitis, not elsewhere classified (2) Low back pain: Status: Acute Qualifiers: Chronicity: chronic Back pain laterality: left Sciatica presence: with sciatica Sciatica laterality: sciatica of left side Qualified Code(s): M54.42 - Lumbago with sciatica, left side; G89.29 - Other chronic pain Category: Medical Code(s): M54.50 - Low back pain, unspecified (3) Left hip pain: Status: Acute Category: Medical Code(s): M25.552 - Pain in left hip (4) Lumbar facet arthropathy: Status: Acute Category: Medical Code(s): M47.816 - Spondylosis without myelopathy or radiculopathy, lumbar region Plan Patient is experiencing significant pain throughout her low back and left hip with extreme point tenderness at her left SI and a positive left Anisa's, Caesar's, Gaenslen's, compression and distraction exam. I have discussed with the patient that she may benefit from a left SI injection. Risk and benefits were discussed with the patient and she would like to proceed forward with this plan of care. Patient and failed conservative therapy including continued at home exercising and stretching over the last 6 weeks. We will schedule the patient for a left SI injection under fluoroscopy. Patient has been instructed to contact the clinic with any concerns before the next appointment. Dr. Coyne has reviewed this note and agrees with this plan of care. This note was dictated using voice recognition software and make contain errors or omissions.
[2024-01-25 10:06] VITALS: BP 133/76; PULSE 91; RESP 18; O2SAT 97; BMI 30.2
== END 2024-01-25 23:59 | disposition home or self-care (01) ==
LOC: SC.PAIN 08:53
PROVIDERS: PCP Family Medicine; Visit Provider Nurse Practitioner Family
DX: M46.1 Sacroiliitis, not elsewhere classified (principal); M54.42 Lumbago with sciatica, left side; G89.29 Other chronic pain; M25.552 Pain in left hip; M47.816 Spondylosis without myelopathy or radiculopathy, lumbar region
CPT/HCPCS: 99202; G0463

== ENCOUNTER 2024-02-20 07:50 | Day surgery (SDC) | payer BC, OTHER, SELFPAY ==
[2024-02-20 08:37] VITALS: BP 161/90; PULSE 82; RESP 18; TEMP 36.5; O2SAT 99; BMI 29.8
[2024-02-20] MEDS: methylPREDNISolone ACETATE 80MG/ML VIAL 80 MG (08:40)
[2024-02-20 08:41] VITALS: BP 133/88; PULSE 77; RESP 18; O2SAT 98
[2024-02-20] MEDS: BUPIVACAINE 0.25% 10ML INJ 25 MG IJ (08:41)
[2024-02-20] MEDS: LIDOCAINE 1% 5ML PF VIAL 5 ML (08:41)
[2024-02-20 08:42] VITALS: BP 133/88; PULSE 74; RESP 18; O2SAT 98
--- NOTE | 2024-02-20 08:52 | P.PCN_ITS ---
Procedure Date: 02/20/24 Time: 08:22 Anesthesiologist:: Salazar Greer CRNA Complications:: None Pre-procedure Diagnosis:: Left sacroiliitis Post-procedure Diagnosis:: Same. Indications for Procedure:: Patient is a pleasant 54-year-old female comes our clinic today for a left sacroiliac joint injection of cortisone. Patient describes low lumbar left- sided back pain as constant, dull, aching. Pain also intensifies in the left posterior hip with ambulation. Upon examination she has extreme point tenderness over the left sacroiliac joint. Patient reports having difficulty transitioning from sitting to standing. Today she rates her pain 6/10. Procedure Details:: Procedure: Left sacroiliac injection under fluoroscopy Informed consent was obtained and the risk and benefits of the procedure were explained to the patient.~ The patient was taken to the procedure room and noninvasive monitors were placed including noninvasive blood pressure cuff and pulse oximeter.~ The patient was placed prone on the procedure table.~ The~ left hip was cleansed using Betadine as a cleansing solution.~ C-arm fluorosocpy was used to view the left SI joint.~ The skin and subcutaneous tissues were anesthetized using Lidocaine 1.5% and a 25-gauge needle.~ After this, a 22-gauge spinal needle was inserted under fluoroscopic guidance into the inferior aspect of the left SI joint.~ Omnipaque dye was injected and a good spread was seen throughout the joint.~ After this, approximately 5 mL of bupivacaine 0.25% and Depo-Medrol 40 mg was incrementally injected into the sacroiliac joint.~ The patient tolerated the procedure well with no complications.~ The patient was observed in the Pain Clinic for a period of 30-45 minutes, then discharged home neurologically intact.~ Plan and Disposition:: Patient was discharged without incident.
[2024-02-20 08:53] VITALS: BP 165/75; PULSE 82; RESP 18; O2SAT 99
== END 2024-02-20 08:55 | disposition home or self-care (01) ==
PROVIDERS: PCP Family Medicine; Visit Provider Nurse Anesthetist, Certified Registered
DX: M46.1 Sacroiliitis, not elsewhere classified (principal)
CPT/HCPCS: 27096; G0260; J1010

== ENCOUNTER 2024-03-07 09:45 | Outpatient (POV) | payer BC, OTHER, SELFPAY ==
[2024-03-07 10:02] VITALS: BP 153/93; PULSE 82; RESP 18; O2SAT 97; BMI 29.6
--- NOTE | 2024-03-07 10:08 | A.OFFVIS_ITS ---
[facility] Disclaimer: The information contained in this section may have been updated after the patient was seen, as this information can be updated by other users. Medical History Trigger finger Depression HTN (hypertension) GERD (gastroesophageal reflux disease) Surgical History History of bladder surgery History of partial hysterectomy Family History Other Unknown family medical history Social History Smoking Status: Current every day smoker tobacco type: cigarettes alcohol intake: never substance use type: denies use current occupational status: other Travel in the last 8 weeks: None PM Subjective & Objective Subjective Subjective:: Patient is a pleasant 54-year-old female who presents today for follow-up of left SI injection on 02/20/2024. Today she rates her pain a 3 out of 10. Patient states she had at least 90% improvement with this injection. She states that she ended up having 1 day last week that she felt a little bit more pain and then last night to today she is felt a little bit more pain in that area however it is very much more manageable and feels like that she has been able to do more following it. Patient does states she is still off work and states she is unsure whether or not she will be able to go back to work due to still having lower energy from time to time and that even sometimes vacuuming causes worsening pain. Patient is currently still seeing her chiropractor twice a week and states this is helping as well. Her Musa has been reviewed and is appropriate. Review of Systems: General: No recent weight changes, no fever, no sleep disturbances Respiratory: No cough, no shortness of air, no recurring pulmonary infections Cardiovascular/peripheral vascular: No chest pain, no palpitations, no edema, no shortness of breath Gastrointestinal: No new onset incontinence, normal bowel movements reported Genitourinary: No new onset incontinence Musculoskeletal: Low back pain Psychiatric: [Normal mood/affect] Neurological: [Denies weakness in extremities], [denies balance issues] Pain at rest (0-10 scale): 3 Objective Objective:: Physical Exam: General: Alert and oriented x3, no acute distress, pleasant and cooperative Lungs: Respirations even and unlabored, symmetrical chest expansion Eyes: PERRL Musculoskeletal: Flexion and extension of lumbar [spine] somewhat guarded secondary to pain, [antalgic gait noted] Neurological: Speech clear, no gross sensory deficit Has patient had previous pain injection?: Yes Percent improvement in pain since last injection: 90% Conservative treatment options previously tried: Home exercise plan Length of treatment: Longer than 6 weeks and Chiropractor Length of treatment: Ongoing therapy twice a week Meds Home Medications and Allergies Home Medications ?Medication ?Instructions ?Recorded ?Confirmed ?Type amlodipine 2.5 mg tablet 2.5 mg PO DAILY BLOOD PRESSURE 03/07/24 03/07/24 History lisinopril 20 mg tablet 20 mg PO BID BLOOD PRESSURE 03/07/24 03/07/24 History meloxicam 15 mg tablet 15 mg PO DAILY Pain 03/07/24 03/07/24 History paroxetine HCl 20 mg tablet 20 mg PO DAILY MOOD 03/07/24 03/07/24 History New Prescriptions to Start Prescriptions: Allergies Allergy/AdvReac Type Severity Reaction Status Date / Time cephalexin Allergy Unknown Verified 01/25/24 09:03 egg Allergy Verified 08/25/20 20:35 Assessment and Plan *Assessment and plan (1) Sacroiliitis: Status: Acute Category: Medical Code(s): M46.1 - Sacroiliitis, not elsewhere classified (2) Low back pain: Status: Acute Qualifiers: Chronicity: chronic Back pain laterality: left Sciatica presence: with sciatica Sciatica laterality: sciatica of left side Qualified Code(s): M54.42 - Lumbago with sciatica, left side; G89.29 - Other chronic pain Category: Medical Code(s): M54.50 - Low back pain, unspecified Plan Patient has had significant improvement following her SI injection and does not require any additional injection therapy at this time. Patient will return to clinic in 1 month for reevaluation of symptoms and plan of care. Patient has been instructed to contact the clinic with any concerns before the next appointment. Dr. Coyne has reviewed this note and agrees with this plan of care. This note was dictated using voice recognition software and make contain errors or omissions. All injections are used with Lidocaine or Bupivacaine and Depo Medrol.
== END 2024-03-07 23:59 | disposition home or self-care (01) ==
LOC: SC.PAIN 09:47
PROVIDERS: PCP Family Medicine; Visit Provider Nurse Practitioner Family
DX: M46.1 Sacroiliitis, not elsewhere classified (principal); M54.42 Lumbago with sciatica, left side; G89.29 Other chronic pain; F17.210 Nicotine dependence, cigarettes, uncomplicated
CPT/HCPCS: 99212; G0463

== ENCOUNTER 2024-04-15 10:09 | Outpatient (POV) | payer OTHER, SELFPAY ==
[2024-04-15 10:28] VITALS: BP 137/82; PULSE 84; RESP 16; O2SAT 99; BMI 29.8
--- NOTE | 2024-04-15 10:38 | EXP.PAIN.SOA ---
[facility] Disclaimer: The information contained in this section may have been updated after the patient was seen, as this information can be updated by other users. Medical History (Updated 04/15/24 @ 10:41 by Karen Sanders APRN) Trigger finger Depression HTN (hypertension) GERD (gastroesophageal reflux disease) Surgical History History of bladder surgery History of partial hysterectomy Family History Other Unknown family medical history Social History Smoking Status: Current every day smoker tobacco type: cigarettes alcohol intake: never substance use type: denies use current occupational status: other Travel in the last 8 weeks: None PM Subjective & Objective Subjective Subjective:: Patient is a pleasant 54-year-old female who presents today for 1 month follow-up. Today she rates her pain a 9 out of 10. Patient states the pain is all across her low back and does go into her legs with numbness and tingling. Patient denies any new trauma or injury. Patient does state the pain interferes with her ability perform activities of daily living such as cooking and cleaning. Patient does state that she is continue to take her meloxicam 15 mg however does not really feel like this is helping. Patient does also use Tylenol on the side and does have muscle relaxers that she has tried with minimal relief. Patient does feel like she does occasionally have muscle spasms however she limits how much she takes of the muscle relaxer due to worsening charley horses in her legs. Patient has tried heat and ice and topicals with minimal relief. Her Musa has been reviewed and is appropriate. Review of Systems: General: No recent weight changes, no fever, no sleep disturbances Respiratory: No cough, no shortness of air, no recurring pulmonary infections Cardiovascular/peripheral vascular: No chest pain, no palpitations, no edema, no shortness of breath Gastrointestinal: No new onset incontinence, normal bowel movements reported Genitourinary: No new onset incontinence Musculoskeletal: Low back pain, bilateral leg pain, bilateral feet pain Psychiatric: [Normal mood/affect] Neurological: [Denies weakness in extremities], [denies balance issues] Pain at rest (0-10 scale): 9 Objective Objective:: Physical Exam: General: Alert and oriented x3, no acute distress, pleasant and cooperative Lungs: Respirations even and unlabored, symmetrical chest expansion Eyes: PERRL Musculoskeletal: Flexion and extension of lumbar [spine] somewhat guarded secondary to pain, [antalgic gait noted] positive bilateral leg raise Neurological: Speech clear, no gross sensory deficit Has patient had previous pain injection?: No Conservative treatment options previously tried: Home exercise plan Length of treatment: Longer than 6 weeks Meds Home Medications and Allergies Home Medications ?Medication ?Instructions ?Recorded ?Confirmed ?Type amlodipine 2.5 mg tablet 2.5 mg PO DAILY BLOOD PRESSURE 03/07/24 04/15/24 History lisinopril 20 mg tablet 20 mg PO BID BLOOD PRESSURE 03/07/24 04/15/24 History meloxicam 15 mg tablet 15 mg PO DAILY Pain 03/07/24 04/15/24 History paroxetine HCl 20 mg tablet 20 mg PO DAILY MOOD 03/07/24 04/15/24 History New Prescriptions to Start Prescriptions: Allergies Allergy/AdvReac Type Severity Reaction Status Date / Time cephalexin Allergy Unknown Verified 01/25/24 09:03 egg Allergy Verified 08/25/20 20:35 Assessment and Plan *Assessment and plan (1) Degenerative disc disease, lumbar: Status: Acute Category: Medical Code(s): M51.36 - Other intervertebral disc degeneration, lumbar region (2) Lumbar radiculopathy: Status: Acute Category: Medical Code(s): M54.16 - Radiculopathy, lumbar region Plan Patient is experienci
== END 2024-04-15 23:59 | disposition home or self-care (01) ==
PROVIDERS: PCP Family Medicine; Visit Provider Nurse Practitioner Family
DX: M51.16 Intervertebral disc disorders with radiculopathy, lumbar region (principal); F17.210 Nicotine dependence, cigarettes, uncomplicated; Z73.89 Other problems related to life management difficulty
CPT/HCPCS: 99212; G0463

== ENCOUNTER 2024-05-01 15:07 | Outpatient (POV) | payer OTHER, SELFPAY ==
[2024-05-01 15:10] VITALS: BP 159/76; PULSE 66; RESP 16; O2SAT 99; BMI 29.5
--- NOTE | 2024-05-01 15:49 | EXP.PAIN.SOA ---
[facility] Disclaimer: The information contained in this section may have been updated after the patient was seen, as this information can be updated by other users. Medical History Trigger finger Depression HTN (hypertension) GERD (gastroesophageal reflux disease) Surgical History History of bladder surgery History of partial hysterectomy Family History Other Unknown family medical history Social History Smoking Status: Current every day smoker tobacco type: cigarettes alcohol intake: never substance use type: denies use current occupational status: other Travel in the last 8 weeks: None PM Subjective & Objective Subjective Subjective:: Patient is a pleasant 54-year-old female who presents today for lumbar epidural denial. Today she rates her pain a 3 out of 10. From her last visit she does state that her pain is better because she is currently on Percocet, ibuprofen and amoxicillin from having her upper teeth pulled. Patient states this has helped her overall low back and leg symptoms however she was only given a temporary dose. Patient does state that she still has the chronic pain of aching throbbing sensation with numbness and tingling. Patient does state that she still would like to try the injection if possible. Patient at her last visit was ordered lidocaine patches however she states that the pharmacy there in [place] said they were on backorder and stated they would contact her once they had them. She states that she is still not heard anything related to this. Patients Musa has been reviewed and is appropriate. Review of Systems: General: No recent weight changes, no fever, no sleep disturbances Respiratory: No cough, no shortness of air, no recurring pulmonary infections Cardiovascular/peripheral vascular: No chest pain, no palpitations, no edema, no shortness of breath Gastrointestinal: No new onset incontinence, normal bowel movements reported Genitourinary: No new onset incontinence Musculoskeletal: Low back pain, leg pain Psychiatric: [Normal mood/affect] Neurological: [Denies weakness in extremities], [denies balance issues] Pain at rest (0-10 scale): 3 Objective Objective:: Physical Exam: General: Alert and oriented x3, no acute distress, pleasant and cooperative Lungs: Respirations even and unlabored, symmetrical chest expansion Eyes: PERRL Musculoskeletal: Flexion and extension of lumbar [spine] somewhat guarded secondary to pain, [antalgic gait noted] Neurological: Speech clear, no gross sensory deficit Has patient had previous pain injection?: No Conservative treatment options previously tried: Home exercise plan Length of treatment: Longer than 12 weeks Meds Home Medications and Allergies Home Medications ?Medication ?Instructions ?Recorded ?Confirmed ?Type amlodipine 2.5 mg tablet 2.5 mg PO DAILY BLOOD PRESSURE 03/07/24 05/01/24 History lisinopril 20 mg tablet 20 mg PO BID BLOOD PRESSURE 03/07/24 05/01/24 History meloxicam 15 mg tablet 15 mg PO DAILY Pain 03/07/24 05/01/24 History paroxetine HCl 20 mg tablet 20 mg PO DAILY MOOD 03/07/24 05/01/24 History lidocaine 5 % topical patch 1 patch topical DAILY #30 ea 04/15/24 05/01/24 Rx New Prescriptions to Start Prescriptions: Allergies Allergy/AdvReac Type Severity Reaction Status Date / Time cephalexin Allergy Unknown Verified 01/25/24 09:03 egg Allergy Verified 08/25/20 20:35 Assessment and Plan *Assessment and plan (1) Lumbar facet arthropathy: Status: Acute Category: Medical Code(s): M47.816 - Spondylosis without myelopathy or radiculopathy, lumbar region (2) Degenerative disc disease, lumbar: Status: Acute Category: Medical Code(s): M51.36 - Other intervertebral disc degeneration, lumbar region (3) Lumbar radiculopathy: Status: Acute Category: Medical Code(s): M54.16 - Radiculopathy, lumbar region Plan I did go over the patient's denial due to not having recent advanced imaging within the last 24 months. I will order the patient an MRI without contrast of her lumbar spine and have her follow-up in office in 1 month. We will plan on resubmitting for an epidural at a later date. Patient agrees with this plan of care. Patient has been instructed to contact the clinic with any concerns before the next appointment. Dr. Coyne has reviewed this note and agrees with this plan of care. This note was dictated using voice recognition software and make contain errors or omissions. All injections are used with Lidocaine or Bupivacaine and Depo Medrol.
== END 2024-05-01 23:59 | disposition home or self-care (01) ==
LOC: SC.PAIN 15:08
PROVIDERS: PCP Family Medicine; Visit Provider Nurse Practitioner Family
DX: M47.26 Other spondylosis with radiculopathy, lumbar region (principal); M51.16 Intervertebral disc disorders with radiculopathy, lumbar region; F17.210 Nicotine dependence, cigarettes, uncomplicated
CPT/HCPCS: 99212; G0463

== ENCOUNTER 2024-05-20 08:59 | Outpatient (CLI) | payer OTHER, SELFPAY ==
--- NOTE | 2024-05-20 09:06 | MR_ITS ---
FINAL REPORT CLINICAL HISTORY: CHRONIC LOW BACK PAIN FINDINGS: Multiplanar MR imaging of the lumbar spine was performed without contrast. On the sagittal T2-weighted images, multilevel disc degeneration is seen. The vertebral alignment is normal. There is no evidence of fracture. No bony mass is identified. The conus is seen at approximately the L1 level and has an unremarkable appearance. L1-2: There is no significant canal stenosis or neural foraminal narrowing. L2-3: There is no significant canal stenosis or neural foraminal narrowing. L3-4: There is no significant canal stenosis or neural foraminal narrowing. L4-5: There is no significant canal stenosis or neural foraminal narrowing. L5-S1: Mild annular disc bulge with mild bilateral neuroforaminal narrowing. IMPRESSION: Mild annular disc bulge with mild bilateral neuroforaminal narrowing at L5-S1. Reviewed, Interpreted and Dictated by Geo Carranza MD Transcribed by Rossy Alcantara Authenticated and . [facility]
== END 2024-05-20 23:59 | disposition home or self-care (01) ==
LOC: RAD 09:00
PROVIDERS: PCP Family Medicine; Visit Provider Nurse Practitioner Family
DX: M54.50 Low back pain, unspecified (principal)
CPT/HCPCS: 72148

== ENCOUNTER 2024-06-17 12:58 | Outpatient (POV) | payer OTHER, SELFPAY ==
--- NOTE | 2024-06-17 13:08 | A.OFFVIS_ITS ---
[facility] Disclaimer: The information contained in this section may have been updated after the patient was seen, as this information can be updated by other users. Medical History Trigger finger Depression HTN (hypertension) GERD (gastroesophageal reflux disease) Surgical History History of bladder surgery History of partial hysterectomy Family History Other Unknown family medical history Social History Smoking Status: Current every day smoker tobacco type: cigarettes alcohol intake: never substance use type: denies use current occupational status: other Travel in the last 8 weeks: None PM Subjective & Objective Subjective Subjective:: Patient is a pleasant 54-year-old female who presents today for follow-up of lumbar MRI. She rates her pain today a 7 out of 10. She denies any new trauma or injury.She still has the chronic pain that runs across her entire low back and does go into her bilateral lower extremities. She describes this as an aching throbbing sensation with numbness and tingling. Patient does state that the chronic pain is causing difficulty performing activities of daily living such as cooking and cleaning. Patient has also been prescribed lidocaine patches with some temporary improvement. Patient states she is continued conservative treatment such as oral medication, heat and ice, topicals and continued at home stretching exercise for longer than 12 weeks with no additional improvement. Patient does state today she would like to see about injection therapy. Patient does also state that she has questions regarding possible carpal tunnel injections. She states that she has had this for years and it has also progressively worsened. Patient states that she used to get injections in the past and that those did help. Patient is asking whether or not if this is something that can be done in future. Patients Musa has been reviewed and is appropriate. Review of Systems: General: No recent weight changes, no fever, no sleep disturbances Respiratory: No cough, no shortness of air, no recurring pulmonary infections Cardiovascular/peripheral vascular: No chest pain, no palpitations, no edema, no shortness of breath Gastrointestinal: No new onset incontinence, normal bowel movements reported Genitourinary: No new onset incontinence Musculoskeletal: Low back pain, bilateral leg pain/numbness Psychiatric: [Normal mood/affect] Neurological: [Denies weakness in extremities], [denies balance issues] Pain at rest (0-10 scale): 7 Objective Objective:: Physical Exam: General: Alert and oriented x3, no acute distress, pleasant and cooperative Lungs: Respirations even and unlabored, symmetrical chest expansion Eyes: PERRL Musculoskeletal: Flexion and extension of lumbar [spine] somewhat guarded secondary to pain, positive leg raise Neurological: Speech clear, no gross sensory deficit Has patient had previous pain injection?: No Conservative treatment options previously tried: Home exercise plan Length of treatment: Longer than 12 weeks Meds Home Medications and Allergies Home Medications ?Medication ?Instructions ?Recorded ?Confirmed ?Type amlodipine 2.5 mg tablet 2.5 mg PO DAILY BLOOD PRESSURE 03/07/24 05/01/24 Histor y lisinopril 20 mg tablet 20 mg PO BID BLOOD PRESSURE 03/07/24 05/01/24 History meloxicam 15 mg tablet 15 mg PO DAILY Pain 03/07/24 05/01/24 History paroxetine HCl 20 mg tablet 20 mg PO DAILY MOOD 03/07/24 05/01/24 History lidocaine 5 % topical patch 1 patch topical DAILY #30 ea 04/15/24 05/01/24 Rx New Prescriptions to Start Prescriptions: Allergies Allergy/AdvReac Type Severity Reaction Status Date / Time cephalexin Allergy Unknown Verified 01/25/24 09:03 egg Allergy Verified 08/25/20 20:35 Assessment and Plan *Assessment and plan (1) Degenerative disc disease, lumbar: Status: Acute Category: Medical Code(s): M51.36 - Other intervertebral disc degeneration, lumbar region (2) Lumbar radiculopathy: Status: Acute Category: Medical Code(s): M54.16 - Radiculopathy, lumbar region Plan And discussed that she does have a bulging disc and bilateral neuroforaminal narrowing at the L5-S1 level. Patient did have limited range of motion of her lumbar spine with a positive leg raise during today's exam. I did discuss with patient that she may benefit from a lumbar epidural at the L5-S1 level. Patient does have numbness that goes down her entire legs to her feet bilaterally. Patient has tried and failed conservative therapy including continued at home stretching exercise for longer than 12 weeks. We will schedule the patient for an LESI L5-S1 under fluoroscopy. I did also discussed with patient in future we can see about doing some median nerve blocks for her carpal tunnel. We will follow-up with this at future visits. I did review over at length with the patient regarding her lumbar MRI patient has been instructed to contact the clinic with any concerns before the next appointment. Dr. Coyne has reviewed this note and agrees with this plan of care. This note was dictated using voice recognition software and make contain errors or omissions. All injections are used with Lidocaine or Bupivacaine and Depo Medrol.
[2024-06-17 15:17] VITALS: BP 154/88; PULSE 87; RESP 16; O2SAT 98; BMI 28.7
== END 2024-06-17 23:59 | disposition home or self-care (01) ==
LOC: SC.PAIN 12:59
PROVIDERS: PCP Family Medicine; Visit Provider Nurse Practitioner Family
DX: M51.16 Intervertebral disc disorders with radiculopathy, lumbar region (principal); F17.210 Nicotine dependence, cigarettes, uncomplicated; Z73.89 Other problems related to life management difficulty
CPT/HCPCS: 99212; G0463

== ENCOUNTER 2024-07-16 10:29 | Day surgery (SDC) | payer OTHER, SELFPAY ==
[2024-07-16 10:42] VITALS: BP 135/81; PULSE 92; RESP 16; TEMP 36.2; O2SAT 96; BMI 28.7
[2024-07-16 10:58] VITALS: BP 166/80; PULSE 73; RESP 18; O2SAT 97
[2024-07-16] MEDS: methylPREDNISolone ACETATE 80MG/ML VIAL 80 MG (10:58)
[2024-07-16 11:00] VITALS: BP 166/80; PULSE 73; RESP 18; O2SAT 97
[2024-07-16 11:09] VITALS: BP 129/75; PULSE 88; RESP 16; O2SAT 96
--- NOTE | 2024-07-16 11:15 | EXP.PAIN.PRO ---
Procedure Date: 07/16/24 Time: 11:00 Anesthesiologist:: Salazar Greer CRNA Complications:: None Pre-procedure Diagnosis:: Degenerative disc lumbar spine multilevels. Lumbar radiculopathy. Lumbar disc bulge L4-5, L5-S1. Post-procedure Diagnosis:: Same. Indications for Procedure:: Patient is a very pleasant 54-year-old female who comes our clinic today for lumbar epidural steroid injection at the L5-S1 level. Patient describes low lumbar back pain as constant, dull, aching. Patient also reports bilateral hip and leg radicular symptoms at times. She rates her pain 7/10. Procedure Details:: Procedure: Lumbar epidural steroid injection under fluoroscopy Informed consent was obtained and the risks and benefits of the procedure were explained to the patient. The patient was taken to the procedure room and noninvasive monitors placed, including noninvasive blood pressure cuff and pulse oximeter. The back was viewed using C-arm Fluoroscopy and prepped using Chloraprep as a cleansing solution and the L5-S1 interspace was palpated. Skin and subcutaneous tissues were anesthetized using lidocaine 1.5% and a 25-gauge needle. After this, an 18-gauge Touhy epidural needle was placed into the L5-S1 interspace and advanced using fluoroscopic guidance and loss of resistance to air until the epidural space was encountered. After confirmation of needle placement in the epidural space, with dye, a solution containing normal saline, 3 mL and Depo-Medrol 80 mg were incrementally injected into the lumbar epidural space. The patient tolerated the procedure well with no complications. The patient was observed in the Pain Clinic and then discharged home neurologically intact. Plan and Disposition:: Patient was discharged without incident
== END 2024-07-16 11:09 | disposition home or self-care (01) ==
LOC: SC.PAINP 10:30
PROVIDERS: PCP Family Medicine; Visit Provider Nurse Practitioner Family
DX: M51.16 Intervertebral disc disorders with radiculopathy, lumbar region (principal)
CPT/HCPCS: 62323; J1010

== ENCOUNTER 2024-08-08 11:35 | Outpatient (POV) | payer OTHER, SELFPAY ==
--- NOTE | 2024-08-08 11:47 | EXP.PAIN.SOA ---
[facility] Disclaimer: The information contained in this section may have been updated after the patient was seen, as this information can be updated by other users. Medical History (Updated 08/08/24 @ 11:55 by Karen Sanders APRN) Trigger finger Depression HTN (hypertension) GERD (gastroesophageal reflux disease) Surgical History History of bladder surgery History of partial hysterectomy Family History Other Unknown family medical history Social History Smoking Status: Current every day smoker tobacco type: cigarettes alcohol intake: never substance use type: denies use current occupational status: other Travel in the last 8 weeks: None PM Subjective & Objective Subjective Subjective:: Patient is a pleasant 54-year-old female who presents today for follow-up of lumbar epidural steroid injection L5-S1 on 07/16/2024. She rates her pain today a 7 out of 10. She denies any new trauma or injury.she states that the injection did help provide 50% improvement however it was very short-lived and really only lasted about a day. Patient does states she is back to her baseline today. She states she has chronic pain throughout her s low back and going into her bilateral lower extremities. She describes this as an aching throbbing sensation with numbness and tingling. Patient does state that the chronic pain is causing difficulty performing activities of daily living such as cooking and cleaning. She has tried and failed conservative treatment patient has also been prescribed lidocaine patches with some temporary improvement. Patient states she is continued conservative treatment such as oral medication, heat and ice, topicals and continued at home stretching exercise for longer than 12 weeks with no additional improvement. Patients Musa has been reviewed and is appropriate. Review of Systems: General: No recent weight changes, no fever, no sleep disturbances Respiratory: No cough, no shortness of air, no recurring pulmonary infections Cardiovascular/peripheral vascular: No chest pain, no palpitations, no edema, no shortness of breath Gastrointestinal: No new onset incontinence, normal bowel movements reported Genitourinary: No new onset incontinence Musculoskeletal: Low back pain Psychiatric: [Normal mood/affect] Neurological: [Denies weakness in extremities], [denies balance issues] Pain at rest (0-10 scale): 7 Objective Objective:: Physical Exam: General: Alert and oriented x3, no acute distress, pleasant and cooperative Lungs: Respirations even and unlabored, symmetrical chest expansion Eyes: PERRL Musculoskeletal: Flexion and extension of lumbar [spine] somewhat guarded secondary to pain, [antalgic gait noted] Neurological: Speech clear, no gross sensory deficit Has patient had previous pain injection?: Yes Percent improvement in pain since last injection: 50% Conservative treatment options previously tried: Home exercise plan Length of treatment: Longer than 12 weeks Meds Home Medications and Allergies Home Medications ?Medication ?Instructions ?Recorded ?Confirmed ?Type amlodipine 2.5 mg tablet 2.5 mg PO DAILY BLOOD PRESSURE 03/07/24 07/16/24 History lisinopril 20 mg tablet 20 mg PO BID BLOOD PRESSURE 03/07/24 07/16/24 History meloxicam 15 mg tablet 15 mg PO DAILY Pain 03/07/24 07/16/24 History paroxetine HCl 20 mg tablet 20 mg PO DAILY MOOD 03/07/24 07/16/24 History lidocaine 5 % topical patch 1 patch topical DAILY #30 ea 04/15/24 07/16/24 Rx New Prescriptions to Start Prescriptions: Allergies Allergy/AdvReac Type Severity Reaction Status Date / Time cephalexin Allergy Unknown Verified 01/25/24 09:03 egg Allergy Verified 08/25/20 20:35 Assessment and Plan *Assessment and plan (1) Lumbar radiculopathy: Status: Acute Category: Medical Code(s): M54.16 - Radiculopathy, lumbar region (2) Degenerative disc disease, lumbar: Status: Acute Category: Medical Code(s): M51.369 - Other intervertebral disc degeneration, lumbar region without mention of lumbar back pain or lower extremity pain (3) Lumbar facet arthropathy: Status: Acute Category: Medical Code(s): M47.816 - Spondylosis without myelopathy or radiculopathy, lumbar region (4) Chronic pain syndrome: Status: Acute Category: Medical Code(s): G89.4 - Chronic pain syndrome Plan Patient continues to experience significant pain throughout her low back with limited range of motion. Patient has tried multiple injections with only very temporary relief. I did review over with her that she may benefit from a pump trial. Risk and benefits and educational handouts were given at today's visit. She would like to proceed forward with this plan of care. Patient has tried and failed conservative therapy including oral medication, heat and ice, topicals, injection therapy, at home stretching exercise for longer than 12 weeks. I will order the patient a psychological evaluation and if she is deemed an appropriate candidate we will proceed forward with the pump trial at a later date. I will also send in a prescription of diclofenac 75 mg twice a day and provide a 2-week supply of this medication. She was counseled to discontinue her meloxicam and all other NSAIDs while trying this medication and to take it with food to minimize GI upset. Patient agrees with this plan of care. Patient has been instructed to contact the clinic with any concerns before the next appointment. Dr. Coyne has reviewed this note and agrees with this plan of care. This note was dictated using voice recognition software and make contain errors or omissions. All injections are used with Lidocaine, Bupivacaine and Depo Medrol. Occasionally urine drug screen is needed to verify patient's compliance with our office pain contract. This is ordered based off specific treatments related to chronic pain with the potential to abuse certain medications.
[2024-08-08 12:07] VITALS: BP 157/85; PULSE 86; RESP 18; O2SAT 96; BMI 28.7
== END 2024-08-08 23:59 | disposition home or self-care (01) ==
PROVIDERS: PCP Family Medicine; Visit Provider Nurse Practitioner Family
DX: M51.16 Intervertebral disc disorders with radiculopathy, lumbar region (principal); M47.26 Other spondylosis with radiculopathy, lumbar region; G89.4 Chronic pain syndrome; F17.210 Nicotine dependence, cigarettes, uncomplicated; Z73.89 Other problems related to life management difficulty
CPT/HCPCS: 99212; G0463

== ENCOUNTER 2024-09-09 10:34 | Outpatient (POV) | payer OTHER, SELFPAY ==
[2024-09-09 11:01] VITALS: BP 140/95; PULSE 91; RESP 14; O2SAT 98; BMI 27.3
--- NOTE | 2024-09-09 11:04 | A.OFFVIS_ITS ---
[facility] Disclaimer: The information contained in this section may have been updated after the patient was seen, as this information can be updated by other users. Medical History (Updated 08/08/24 @ 11:55 by Karen Sanders APRN) Trigger finger Depression HTN (hypertension) GERD (gastroesophageal reflux disease) Surgical History History of bladder surgery History of partial hysterectomy Family History Other Unknown family medical history Social History Smoking Status: Current every day smoker tobacco type: cigarettes alcohol intake: never substance use type: denies use current occupational status: other Travel in the last 8 weeks: None Have you lived/traveled outside US in past 30 days?: No Contact w/someone who lives/traveled outside US past 30 days?: No Exposure to someone with infectious disease in past 14 days?: No Do you have a fever (greater than 100.4 F or 38 C)?: No Have you tested positive for COVID-19: No Exposed to someone with COVID-19 in past 14 days?: No Do you have a sore throat?: No Do you have a cough?: No Do you have any weakness?: No Do you have any diarrhea?: No Are you experiencing any unusual bleeding?: No Do you have any muscle aches/pain?: No Do you have any abdominal pain?: No Are you experiencing loss of taste or smell?: No PM Subjective & Objective Subjective Subjective:: Patient is a pleasant 54-year-old female who presents today for psychological evaluation follow-up and medication refill. Today she rates her pain an 8 out of 10. She denies any new trauma or injury. Patient does state that she did complete her psychological evaluation and that the provider did tell her that she did great and that she had no concerns for proceeding forward. Patient does also state that the diclofenac we sent in did seem to really help. Patient was prescribed 75 mg twice a day. Patient is requesting refills. Patient does states she still has the chronic pain throughout her back that does affect her activities of daily living. Patient states that the pain is just constant and cannot do much of anything. Her Musa has been reviewed and is appropriate. Review of Systems: General: No recent weight changes, no fever, no sleep disturbances Respiratory: No cough, no shortness of air, no recurring pulmonary infections Cardiovascular/peripheral vascular: No chest pain, no palpitations, no edema, no shortness of breath Gastrointestinal: No new onset incontinence, normal bowel movements reported Genitourinary: No new onset incontinence Musculoskeletal: Chronic low back pain Psychiatric: [Normal mood/affect] Neurological: [Denies weakness in extremities], [denies balance issues] Pain at rest (0-10 scale): 8 Objective Objective:: Physical Exam: General: Alert and oriented x3, no acute distress, pleasant and cooperative Lungs: Respirations even and unlabored, symmetrical chest expansion Eyes: PERRL Musculoskeletal: Flexion and extension of lumbar [spine] somewhat guarded secondary to pain, [antalgic gait noted] Neurological: Speech clear, no gross sensory deficit Has patient had previous pain injection?: No Conservative treatment options previously tried: Home exercise plan Length of treatment: Longer than 12 weeks Meds Home Medications and Allergies Home Medications ?Medication ?Instructions ?Recorded ?Confirmed ?Type amlodipine 2.5 mg tablet 2.5 mg PO DAILY BLOOD PRESSURE 03/07/24 09/09/24 History lisinopril 20 mg tablet 20 mg PO BID BLOOD PRESSURE 03/07/24 09/09/24 History meloxicam 15 mg tablet 15 mg PO DAILY Pain 03/07/24 09/09/24 History paroxetine HCl 20 mg tablet 20 mg PO DAILY MOOD 03/07/24 09/09/24 History lidocaine 5 % topical patch 1 patch topical DAILY #30 ea 04/15/24 09/09/24 Rx diclofenac sodium 75 mg 75 mg PO BID #28 tabs 08/08/24 09/09/24 Rx tablet,delayed release New Prescriptions to Start Prescriptions: Allergies Allergy/AdvReac Type Severity Reaction Status Date / Time cephalexin Allergy Unknown Verified 01/25/24 09:03 egg Allergy Verified 08/25/20 20:35 Assessment and Plan *Assessment and plan (1) Lumbar facet arthropathy: Status: Acute Category: Medical Code(s): M47.816 - Spondylosis without myelopathy or radiculopathy, lumbar region (2) Degenerative disc disease, lumbar: Status: Acute Category: Medical Code(s): M51.369 - Other intervertebral disc degeneration, lumbar region without mention of lumbar back pain or lower extremity pain (3) Lumbar radiculopathy: Status: Acute Category: Medical Code(s): M54.16 - Radiculopathy, lumbar region (4) Chronic pain syndrome: Status: Acute Category: Medical Code(s): G89.4 - Chronic pain syndrome Plan I did discuss with the patient regarding the risk and benefits of the intrathecal pain pump trial and she would like to proceed forward with this plan of care. Patient does state that she did get the verbal yes from the provider regarding her psychological evaluation and that she was deemed an appropriate candidate. I did discuss with the patient that the report is officially not in the computer however we will call for this. Patient was counseled as long as that paperwork does state exactly that that she is deemed an appropriate candidate we will proceed forward with the trial. Patient does have a drug agreement on file with our office and has continued and failed conservative therapy including oral medication, heat and ice, topicals, at home stretching exercise for longer than 12 weeks that was physician guided. Patient has also tried injection therapy. Patient will be submitted for a intrathecal pain pump trial under fluoroscopy. Patient is not on any blood thinners. I will also refill the diclofenac and provide a 3-month supply of this medication. Patient has been instructed to contact the clinic with any concerns before the next appointment. Dr. Coyne has reviewed this note and agrees with this plan of care. This note was dictated using voice recognition software and make contain errors or omissions. All injections are used with Lidocaine, Bupivacaine and Depo Medrol. Occasionally urine drug screen is needed to verify patient's compliance with our office pain contract. This is ordered based off specific treatments related to chronic pain with the potential to abuse certain medications.
== END 2024-09-09 23:59 | disposition home or self-care (01) ==
PROVIDERS: PCP Family Medicine; Visit Provider Nurse Practitioner Family
DX: M47.26 Other spondylosis with radiculopathy, lumbar region (principal); M51.16 Intervertebral disc disorders with radiculopathy, lumbar region; G89.4 Chronic pain syndrome; F17.210 Nicotine dependence, cigarettes, uncomplicated; Z73.89 Other problems related to life management difficulty
CPT/HCPCS: 99212; G0463

== ENCOUNTER 2024-10-09 13:28 | Outpatient (POV) | payer OTHER, SELFPAY ==
--- NOTE | 2024-10-09 14:07 | A.OFFVIS_ITS ---
[facility] Disclaimer: The information contained in this section may have been updated after the patient was seen, as this information can be updated by other users. Medical History (Updated 09/20/24 @ 10:56 by Etta Arteaga [facility]) Trigger finger Depression HTN (hypertension) GERD (gastroesophageal reflux disease) Surgical History History of bladder surgery History of partial hysterectomy Family History Other Unknown family medical history Social History Smoking Status: Current every day smoker tobacco type: cigarettes alcohol intake: never substance use type: denies use current occupational status: other Travel in the last 8 weeks: None Have you lived/traveled outside US in past 30 days?: No Contact w/someone who lives/traveled outside US past 30 days?: No Exposure to someone with infectious disease in past 14 days?: No Do you have a fever (greater than 100.4 F or 38 C)?: No Have you tested positive for COVID-19: No Exposed to someone with COVID-19 in past 14 days?: No Do you have a sore throat?: No Do you have a cough?: No Do you have any weakness?: No Do you have any diarrhea?: No Are you experiencing any unusual bleeding?: No Do you have any muscle aches/pain?: No Do you have any abdominal pain?: No Are you experiencing loss of taste or smell?: No PM Subjective & Objective Subjective Subjective:: Patient is a pleasant 54-year-old female who presents today for follow-up. Patient's rates her pain today a 4 out of 10. She denies any new trauma or injury. She states she still is having chronic back pain and does still want to proceed forward with the intrathecal pump trial. Patient did complete her psychological evaluation and does have questions whether or not if it officially is in the computer currently. Patient does also make mention that her current muscle relaxer of methocarbamol does seem to be causing worsening cramps in her legs and would like to see about trying a different medication. Her Musa has been reviewed and is appropriate. Review of Systems: General: No recent weight changes, no fever, no sleep disturbances Respiratory: No cough, no shortness of air, no recurring pulmonary infections Cardiovascular/peripheral vascular: No chest pain, no palpitations, no edema, no shortness of breath Gastrointestinal: No new onset incontinence, normal bowel movements reported Genitourinary: No new onset incontinence Musculoskeletal: Low back pain Psychiatric: [Normal mood/affect] Neurological: [Denies weakness in extremities], [denies balance issues] Pain at rest (0-10 scale): 4 Objective Objective:: Physical Exam: General: Alert and oriented x3, no acute distress, pleasant and cooperative Lungs: Respirations even and unlabored, symmetrical chest expansion Eyes: PERRL Musculoskeletal: Flexion and extension of lumbar [spine] somewhat guarded secondary to pain, [antalgic gait noted] Neurological: Speech clear, no gross sensory deficit Has patient had previous pain injection?: No Conservative treatment options previously tried: Home exercise plan Length of treatment: Longer than 12 weeks Meds Home Medications and Allergies Home Medications ?Medication ?Instructions ?Recorded ?Confirmed ?Type amlodipine 2.5 mg tablet 2.5 mg PO DAILY BLOOD PRESSURE 03/07/24 09/09/24 History lisinopril 20 mg tablet 20 mg PO BID BLOOD PRESSURE 03/07/24 09/09/24 History meloxicam 15 mg tablet 15 mg PO DAILY Pain 03/07/24 09/09/24 History paroxetine HCl 20 mg tablet 20 mg PO DAILY MOOD 03/07/24 09/09/24 History lidocaine 5 % topical patch 1 patch topical DAILY #30 ea 04/15/24 09/09/24 Rx diclofenac sodium 75 mg 75 mg PO BID #60 tabs 09/09/24 Rx tablet,delayed release cyclobenzaprine 10 mg tablet 10 mg PO TID #42 tabs 10/09/24 Rx New Prescriptions to Start Prescriptions: cyclobenzaprine Karen Sanders Allergies Allergy/AdvReac Type Severity Reaction Status Date / Time cephalexin Allergy Unknown Verified 01/25/24 09:03 egg Allergy Verified 08/25/20 20:35 Assessment and Plan *Assessment and plan (1) Degenerative disc disease, lumbar: Status: Acute Category: Medical Code(s): M51.369 - Other intervertebral disc degeneration, lumbar region without mention of lumbar back pain or lower extremity pain (2) Lumbar radiculopathy: Status: Acute Category: Medical Code(s): M54.16 - Radiculopathy, lumbar region (3) Lumbar facet arthropathy: Status: Acute Category: Medical Code(s): M47.816 - Spondylosis without myelopathy or radiculopathy, lumbar region Plan I did discuss with the patient that her psychological evaluation was in the computer and she was deemed an appropriate candidate for this device. Patient will be submitted for the pump trial under fluoroscopy for our Agued[place] date. I will send in a 2-week supply of Flexeril 3 times a day as needed. Patient was counseled to let us know if this does help. Patient has had this medication in the past and denies any side effects however does not necessarily remember how well it worked. I did pediatric genetic counselor her that if it does not improve any of her symptoms that we can try a different muscle relaxer in future. Patient will be seen in our office next for her intrathecal pump trial. Patient has been instructed to contact the clinic with any concerns before the next appointment. Dr. Coyne has reviewed this note and agrees with this plan of care. This note was dictated using voice recognition software and make contain errors or omissions. All injections are used with Lidocaine, Bupivacaine and Depo Medrol. Occasionally urine drug screen is needed to verify patient's compliance with our office pain contract. This is ordered based off specific treatments related to chronic pain with the potential to abuse certain medications.
[2024-10-09 14:38] VITALS: BP 132/85; PULSE 92; RESP 14; O2SAT 98; BMI 30.2
== END 2024-10-09 23:59 | disposition home or self-care (01) ==
PROVIDERS: PCP Family Medicine; Visit Provider Nurse Practitioner Family
DX: M51.16 Intervertebral disc disorders with radiculopathy, lumbar region (principal); M47.26 Other spondylosis with radiculopathy, lumbar region; F17.210 Nicotine dependence, cigarettes, uncomplicated
CPT/HCPCS: 99212; G0463

== ENCOUNTER 2024-10-23 07:59 | Outpatient (CLI) | payer OTHER, SELFPAY | END 2024-10-23 23:59 | disposition home or self-care (01) | LOC: RT 08:00 | PROVIDERS: PCP Family Medicine; Visit Provider Physician Assistant | DX: J44.1 Chronic obstructive pulmonary disease with (acute) exacerbation (principal) | CPT/HCPCS: 94060; 94726; 94729 ==

== ENCOUNTER 2024-11-22 10:52 | Day surgery (SDC) | payer OTHER, SELFPAY ==
[2024-11-22 10:55] VITALS: BP 154/102; PULSE 63; RESP 16; TEMP 36.8; O2SAT 100; BMI 30.2
[2024-11-22] MEDS: FENTANYL 100MCG/2ML VIAL 100 MCG (11:32)
[2024-11-22] MEDS: LIDOCAINE 1% 30ML PF VIAL 30 ML (11:32)
[2024-11-22] MEDS: CLINDAMYCIN PHOSPHATE/D5W 900 MG/50 ML PIGGYBACK 100 MG IV (11:33)
[2024-11-22 11:35] VITALS: BP 171/86; PULSE 77; RESP 18; O2SAT 98
[2024-11-22 11:36] VITALS: BP 171/86; PULSE 76; RESP 18; O2SAT 97
[2024-11-22 11:40] VITALS: BP 126/87; PULSE 70; RESP 18; O2SAT 96
[2024-11-22] MEDS: diphenhydrAMINE 25MG CAPSULE 25 MG PO (11:47)
[2024-11-22 12:55] VITALS: BP 131/80; PULSE 70; RESP 16; O2SAT 97
--- NOTE | 2024-11-22 15:29 | EXP.PAIN.PRO ---
Procedure Date: 11/22/24 Time: 15:29 Anesthesiologist:: Gordon Coyne MD Complications:: None Pre-procedure Diagnosis:: Degenerative disease of lumbar spine with lumbar radiculopathy symptoms Post-procedure Diagnosis:: Same Indications for Procedure:: This patient is a pleasant 54-year-old white female who we are treating for low back pain with lumbar radiculopathy symptoms. She has increasing low back pain with lumbar radicular symptoms. She has failed all previous conservative treatments including injections, oral medications, physical therapy and she has had a successful psychological evaluation. She presents for intrathecal pump trial today. She is also not a candidate for any surgery. Procedure Details:: Pain pump trial Informed consent was obtained and the risk and benefits of the procedure was explained to the patient. The patient was taken to the procedure room and placed prone on the procedure table. Patient was prepped and draped in sterile fashion. C-arm fluoroscopy was used to view the lumbar spine. The skin and subcutaneous tissues were anesthetized using lidocaine. I placed a 18-gauge spinal needle into the L4-5 interspace and advanced until clear CSF was obtained. After this intrathecal catheter was inserted and advanced very easily to the L1 vertebral body. The needle was withdrawn. We were able to freely withdraw clear CSF through the catheter. We then injected intrathecal opioid single shot bolus of 25 mcg followed by saline and followed by the previous CSF that was withdrawn. The needle and catheter were then removed and a Band-Aid was placed. Patient tolerated the procedure well with no complications. We reevaluated the patient after 30 minutes to 1 hour. She was also reassessed by physical therapy. Patient had 80 to 90% relief in pain symptoms. She was much more functional. She was walking better and standing better. By all accounts this was a successful intrathecal pump trial. Patient was discharged home neurologic intact with good relief of pain symptoms. Plan and Disposition:: Will follow-up with this patient in 1 week to assess efficacy of this trial. If successful we will plan on permanent placement with intrathecal morphine 1 mg/mL discharge at 100 mcg/day. Catheter tip will be at the T8 vertebral body
== END 2024-11-22 12:55 | disposition home or self-care (01) ==
LOC: SC.PAINP 10:53
PROVIDERS: PCP Family Medicine; Visit Provider Anesthesiology
DX: M51.16 Intervertebral disc disorders with radiculopathy, lumbar region (principal)
CPT/HCPCS: 62323; J0736; J3010

== ENCOUNTER 2024-12-10 10:06 | Outpatient (POV) | payer OTHER, SELFPAY ==
[2024-12-10 10:28] VITALS: BP 129/98; BP 152/97; PULSE 96; RESP 16; O2SAT 99; BMI 30.2
--- NOTE | 2024-12-10 11:38 | EXP.PAIN.SOA ---
[facility] Disclaimer: The information contained in this section may have been updated after the patient was seen, as this information can be updated by other users. Medical History Trigger finger Depression HTN (hypertension) GERD (gastroesophageal reflux disease) Surgical History History of bladder surgery History of partial hysterectomy Family History Other Unknown family medical history Social History Smoking Status: Current every day smoker tobacco type: cigarettes alcohol intake: never substance use type: denies use current occupational status: other Travel in the last 8 weeks?: None PM Subjective & Objective Subjective Subjective:: Patient is a pleasant 54-year-old female who presents today for follow-up of her intrathecal pump trial on 11/22/2024. Today she rates her pain at 8 out of 10. Patient does state that she did have at least 75% improvement if not more from the pump trial. Patient does state that she ended up having some itching however it was very minimal. Patient states that that was the best she has felt for quite some time and that she felt she was able to do more things overall. Patient states she felt like her walking was much easier and was not experiencing the chronic pain that she has been. Patient states that it did seem to take about 24 hours before the pain returned. Patient does make mention however that she started to have a headache from about Monday to . Patient states that she did try caffeine and Excedrin however the biggest improvement was more so when she was able to stop and lay down. Patient does state today that it has resolved. Patient states most of her pain today is all across her low back and bilateral hips. She denies any new falls or injuries. Patient does state the pain is interfering with her ability to perform activities of daily living such as cooking and cleaning. Patient is interested in additional options for this pain. Her Musa has been reviewed and is appropriate. Review of Systems: General: No recent weight changes, no fever, no sleep disturbances Respiratory: No cough, no shortness of air, no recurring pulmonary infections Cardiovascular/peripheral vascular: No chest pain, no palpitations, no edema, no shortness of breath Gastrointestinal: No new onset incontinence, normal bowel movements reported Genitourinary: No new onset incontinence Musculoskeletal: Low back pain, bilateral hip pain Psychiatric: [Normal mood/affect] Neurological: [Denies weakness in extremities], [denies balance issues] Pain at rest (0-10 scale): 8 Objective Objective:: Physical Exam: General: Alert and oriented x3, no acute distress, pleasant and cooperative Lungs: Respirations even and unlabored, symmetrical chest expansion Eyes: PERRL Musculoskeletal: Flexion and extension of lumbar [spine] somewhat guarded secondary to pain, [antalgic gait noted] point tenderness along bilateral SIs with positive bilateral Anisa's, Caesar's, Gaenslen's, compression and distraction exam Neurological: Speech clear, no gross sensory deficit Has patient had previous pain injection?: Yes Percent improvement in pain since last injection: At least 75% improvement Conservative treatment options previously tried: Home exercise plan Length of treatment: Longer than 12 weeks Meds Home Medications and Allergies Home Medications ?Medication ?Instructions ?Recorded ?Confirmed ?Type amlodipine 2.5 mg tablet 2.5 mg PO DAILY BLOOD PRESSURE 03/07/24 12/10/24 History lisinopril 20 mg tablet 20 mg PO BID BLOOD PRESSURE 03/07/24 12/10/24 History meloxicam 15 mg tablet 15 mg PO DAILY Pain 03/07/24 12/10/24 History paroxetine HCl 20 mg tablet 20 mg PO DAILY MOOD 03/07/24 12/10/24 History lidocaine 5 % topical patch 1 patch topical DAILY #30 ea 04/15/24 12/10/24 Rx diclofenac sodium 75 mg 75 mg PO BID #60 tabs 09/09/24 12/10/24 Rx tablet,delayed release cyclobenzaprine 10 mg tablet 10 mg PO TID #42 tabs 10/09/24 12/10/24 Rx New Prescriptions to Start Prescriptions: Allergies Allergy/AdvReac Type Severity Reaction Status Date / Time cephalexin Allergy Unknown Verified 01/25/24 09:03 egg Allergy Verified 08/25/20 20:35 Assessment and Plan *Assessment and plan (1) Sacroiliitis: Status: Acute Category: Medical Code(s): M46.1 - Sacroiliitis, not elsewhere classified (2) Left hip pain: Status: Acute Category: Medical Code(s): M25.552 - Pain in left hip Plan Patient is experiencing worsening pain along the low back and bilateral hips. They did have limited range of motion of the lumbar spine along with point tenderness along bilateral SI joints and a positive bilateral Anisa's, Caesar's, Gaenslen's, compression and distraction exam. I did discuss with the patient that I do believe they would benefit from bilateral SI injections. Risk and benefits were discussed with the patient and they would like to proceed forward with this option. Patient has tried and failed conservative therapy including continued at home stretching exercise for longer than 12 weeks. Patient does have a longstanding history of chronic sacroiliitis with her last injection back in February 2024 on the left SI. Patient did right 90% improvement with that injection and has not required any additional injections in that same location since. This will be a diagnostic injection with less than 1 mL solution to be injected. Patient will be scheduled for bilateral SI injections under fluoroscopy. I will also order the patient a compounded cream. Patient did undergo a intrathecal pump trial with significant improvement in the patient would like to proceed forward with the intrathecal implant. Risk and benefits have been discussed and they still wish to continue with this plan of care. Patient has tried and failed conservative therapies. Patient does have a signed agreement that if we proceed forward with the intrathecal pump that there will be a decrease in oral pain medications if this is applicable with the overall goal 2-no oral opioids once the intrathecal pain pump is established. Patient has been prescribed pain medication in the past including Percocet however is not currently on any pain medications. Prior to the intrathecal trial patient was on a fixed schedule with her medications and patient has been compliant with her medication regimen. Patient did have 75% improvement with her pump trial that did last 24 hours before her pain started to return. Patient did have overall improved function with this intervention. Patient will be started at morphine 1 mg/mL with a daily dose of 100 mcg/day and the catheter tip at the L1 vertebral body. We will submit for the intrathecal pain pump implant. Patient has been instructed to contact the clinic with any concerns before the next appointment. Dr. Coyne has reviewed this note and agrees with this plan of care. This note was dictated using voice recognition software and make contain errors or omissions. All injections are used with Lidocaine or Bupivacaine and dexamethasone.
== END 2024-12-10 23:59 | disposition home or self-care (01) ==
LOC: SC.PAIN 10:07
PROVIDERS: PCP Family Medicine; Visit Provider Nurse Practitioner Family
DX: M46.1 Sacroiliitis, not elsewhere classified (principal); M25.552 Pain in left hip; F17.210 Nicotine dependence, cigarettes, uncomplicated; Z73.89 Other problems related to life management difficulty
CPT/HCPCS: 99212; G0463

== ENCOUNTER 2025-01-14 10:48 | Day surgery (SDC) | payer OTHER, SELFPAY ==
[2025-01-14 10:57] VITALS: BP 129/76; PULSE 85; RESP 16; TEMP 36.7; O2SAT 97; BMI 30.4
[2025-01-14] MEDS: DEXAMETHASONE 10MG/ML 1ML VIAL 10 MG (11:11)
[2025-01-14] MEDS: BUPIVACAINE 0.25% 10ML INJ 25 MG IJ (11:12)
[2025-01-14] MEDS: LIDOCAINE 1% 5ML PF VIAL 5 ML (11:12)
--- NOTE | 2025-01-14 11:16 | P.PCN_ITS ---
Procedure Date: 01/14/25 Time: 11:00 Anesthesiologist:: Salazar Greer CRNA Complications:: None Pre-procedure Diagnosis:: Bilateral sacroiliitis Post-procedure Diagnosis:: Same Indications for Procedure:: Patient is a very pleasant 54-year-old female who comes our clinic today for bilateral sacroiliac joint injection of cortisone local anesthetic. Patient describes low lumbar back pain as constant, dull, aching. She reports ports bilateral posterior hip pain. Difficulty transitioning from sitting to standing. Difficulty with ambulation. She rates her pain 8/10. Procedure Details:: Procedure: Bilateral sacroiliac joint injections under fluoroscopy Informed consent was obtained and the risks and benefits of the procedure were explained to the patient.~ The patient was taken to the procedure room and noninvasive monitors were placed including a noninvasive blood pressure cuff and pulse oximeter.~ The patient was placed prone on the procedure table. Both hips were cleansed using Betadine as a cleansing solution. C-arm fluoroscopy was used to view the right sacroiliac joint.~ The skin and subcutaneous tissues were anesthetized using lidocaine 1.5% and a 25-gauge needle.~ After this, a 22-gauge spinal needle was inserted under fluoroscopic guidance into the inferior aspect of the right sacroiliac joint.~ Omnipaque dye was injected and good spread was seen throughout the joint.~ After this, approximately 5 mL of bupivacaine, 0.25% and Depo-Medrol, 40 mg was incrementally injected into the right sacroiliac joint. We then moved to the left sacroiliac joint.~ The skin and subcutaneous tissues were anesthetized using lidocaine 1.5% and a 25-gauge needle.~ After this, a 22- gauge spinal needle was inserted under fluoroscopic guidance into the inferior aspect of the left sacroiliac joint.~ Omnipaque dye was injected and good spread was seen throughout the joint. After this, approximately 5 mL of bupivacaine, 0.25% and Depo-Medrol, 40 mg was incrementally injected into the left sacroiliac joint.~ The patient tolerated the procedure well with no complications. The patient was observed in the Pain Clinic and then was discharged home neurologically intact. Plan and Disposition:: Patient was discharged without incident.
[2025-01-14 11:19] VITALS: BP 132/82; PULSE 84; RESP 18; O2SAT 97
[2025-01-14 11:20] VITALS: BP 132/82; PULSE 84; RESP 18; O2SAT 97
[2025-01-14 11:22] VITALS: BP 138/78; PULSE 88; RESP 16; O2SAT 99
== END 2025-01-14 11:22 | disposition home or self-care (01) ==
PROVIDERS: PCP Family Medicine; Visit Provider Nurse Anesthetist, Certified Registered
DX: M46.1 Sacroiliitis, not elsewhere classified (principal); F32.A Depression, unspecified; K21.9 Gastro-esophageal reflux disease without esophagitis; I10 Essential (primary) hypertension; F17.210 Nicotine dependence, cigarettes, uncomplicated; Z98.1 Arthrodesis status; Z88.1 Allergy status to other antibiotic agents; Z91.012 Allergy to eggs; Z79.899 Other long term (current) drug therapy; Z79.1 Long term (current) use of non-steroidal anti-inflammatories (NSAID); Z97.8 Presence of other specified devices
CPT/HCPCS: G0260; J0665; J1100; J2003

== ENCOUNTER 2025-01-29 11:23 | Outpatient (POV) | payer OTHER, SELFPAY ==
--- OUTSIDE RECORDS SUMMARY | 2025-01-29 11:27 | XMS_ITS | Referral Summary ---
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 09/09/2024 Active ipratropium-albu teroL (DUO-NEB) 0.5 mg-3 mg(2.5 mg base)/3 mL nebulizer solution 3 mLs 4 (four) times daily. 10/01/2024 Active PARoxetine (PAXIL) 20 MG tablet Take 1 tablet (20 mg total) by mouth every morning. 09/30/2024 Active cyclobenzaprine (FLEXERIL) 10 MG tablet Take 1 tablet (10 mg total) by mouth 3 (three) times daily. 10/09/2024 Active amLODIPine (NORVASC) 2.5 MG tablet Take 1 tablet (2.5 mg total) by mouth daily. Active Social History Tobacco Use Types Packs/Day Years Used Date Smoking Tobacco: Every Day Cigarettes Smokeless Tobacco: Never Tobacco Cessation:Ready to Q uit: Not Asked; Counseling Given: Not Answered Alcohol Use Standard Drinks/Week Comments Not Currently 0 (1 standard drink = 0.6 oz pur e alcohol) Comments Unknown Sex and Gender Information Value Date Recorded Sex Assigned at Not on file Legal Sex Female 5:48 PM CDT Gender Identity Not on file Sexual Orientation Not on file Last Filed Vital Signs Vital Sign Reading Time Taken Comments Blood Pressure 159/95 11/06/2024 9:39 AM EDT Pulse 86 11/06/2024 9:39 AM EDT Temperature - - Respiratory Rate - - Oxygen Saturation - - Inhaled Oxygen Concentration - - Weight 72.6 kg (160 lb) 11/06/2024 9:37 AM EDT Height 154.9 cm (5' 1 ) 11/06/2024 9:37 AM EDT Body Mass Index 30.23 11/06/2024 9:37 AM EDT Plan of Treatment Not on file Procedures Procedure Name Priority Date/Time Associated Diagnosis Comments XR HIP 2 VIEWS LEFT Routine 11/06/2024 1 0:01 AM EDT Left hip pain from Last 3 Months Results * XR hip 2 views left (11/06/2024 10:01 AM EDT) Anatomical Region Laterality Modality Pelvis X-Ray Narrative 11/06/2024 10:25 AM EDT X-Rays were performed and interpreted today in office of left hip, 2 views weight bearing revealing: maintained joint spaces without obvious evidence of acute osseous abnormality. us Yanet Brantley PA-C [facility] Final Result from Last 3 Months [facility]
--- OUTSIDE RECORDS SUMMARY | 2025-01-29 11:27 | XMS_ITS | Clinical Summary ---
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 Active Encounters Date Type Department Care Team Description 11/06/2024 10:00 AM EDT Ancillary Procedure [facility] [address] [phone] Yanet Brantley PA-C 11/06/2024 9:00 AM EDT Office Visit [address] [phone] Yanet Brantley PA-C Trochanteric bursitis of left hip (Primary Dx); Left hip pain from Last 3 Months Family History Medical History Relation Name Comments Arthritis Other Cancer Other Clotting disorder Other Diabetes Other Gout Other Heart disease Other Hypertension Other Lung disease Other Osteoporosis Other Relation Name Status Comments Other Social History Tobacco Use Types Packs/Day Years [...] 11/06/2024 9:37 AM EDT Plan of Treatment Health Maintenance Due Date Last Done Comments CT Colonography 1972 Colonoscopy 1972 Colorectal Cancer Screening 1972 FOBT/FIT 1972 Fit-DNA (Cologuard) 1972 Sigmoidoscopy 1972 Depression Screening (12+) 1984 Tobacco Cessation Counseling and Screening (12+) 02/01 HIV Screening 02/01/1987 Hepatitis C Screening 02/01/1990 DTAP/TDAP/TD VACCINES (1 - Tdap) 02/01/1991 Pneumococcal 50+ years (1 of 2 - PCV) 02/01/1991 Pap Smear 02/01/1993 Breast Cancer Screening 2012 Lipid Panel 02/01/2017 Shingles Vaccine (Zoster) (1 of 2) 02/01/2022 COVID-19 VACCINE (2 - season) 04/07/202405/2021 Influenza Vaccine (Season Ended) 2025 Procedures Procedure Name Priority Date/Time Associated Diagnosis [...] acute osseous abnormality. us Yanet Brantley PA-C [facility] Final Result from Last 3 Months Insurance [facility]
[2025-01-29 11:49] VITALS: BP 177/87; PULSE 79; RESP 18; O2SAT 97; BMI 31.2
--- NOTE | 2025-01-29 11:52 | EXP.PAIN.SOA ---
[facility] Disclaimer: The information contained in this section may have been updated after the patient was seen, as this information can be updated by other users. Medical History Trigger finger SURGERY Depression HTN (hypertension) GERD (gastroesophageal reflux disease) Surgical History History of bladder surgery MESH History of partial hysterectomy Family History Other Unknown family medical history Social History Smoking Status: Current every day smoker tobacco type: cigarettes alcohol intake: never substance use type: denies use current occupational status: other Travel in the last 8 weeks?: None PM Subjective & Objective Subjective Subjective:: Patient is a pleasant 54-year-old female who presents today for follow-up of her bilateral SI injections on 01/14/2025. Today she rates 80% relief following those injections however she is having a lot of pain in her right knee. She states that this has been going on the last 3 to 4 weeks and progressed. Patient states that it is warm to touch and has been swelling some with increased activity. She states any little motion causes significant pain. She states it is interfering with her ability perform activities of daily living such as cooking and cleaning. Patient has had issues with this joint in the past however has not had any recent flareups until now. Patient denies any falls. Patient states that it does hurt even behind her knee. Patient is prescribed Flexeril 10 mg 3 times a day from our office. She does state that she is out of this medication. She is also managed with compounded cream and diclofenac. Her Musa has been reviewed and is appropriate. Review of Systems: General: No recent weight changes, no fever, no sleep disturbances Respiratory: No cough, no shortness of air, no recurring pulmonary infections Cardiovascular/peripheral vascular: No chest pain, no palpitations, no edema, no shortness of breath Gastrointestinal: No new onset incontinence, normal bowel movements reported Genitourinary: No new onset incontinence Musculoskeletal: Right knee pain Psychiatric: [Normal mood/affect] Neurological: [Denies weakness in extremities], [denies balance issues] Pain at rest (0-10 scale): 5 Objective Objective:: Physical Exam: General: Alert and oriented x3, no acute distress, pleasant and cooperative Lungs: Respirations even and unlabored, symmetrical chest expansion Eyes: PERRL Musculoskeletal: Flexion and extension of right knee somewhat guarded secondary to pain, [antalgic gait noted] Neurological: Speech clear, no gross sensory deficit Has patient had previous pain injection?: Yes Percent improvement in pain since last injection: 80% Conservative treatment options previously tried: Home exercise plan Length of treatment: Longer than 12 weeks Meds Home Medications and Allergies Home Medications ?Medication ?Instructions ?Recorded ?Confirmed ?Type amlodipine 2.5 mg tablet 2.5 mg PO DAILY BLOOD PRESSURE 03/07/24 01/29/25 History lisinopril 20 mg tablet 20 mg PO BID BLOOD PRESSURE 03/07/24 01/29/25 History paroxetine HCl 20 mg tablet 20 mg PO DAILY MOOD 03/07/24 01/29/25 History diclofenac sodium 75 mg 75 mg PO BID #60 tabs 09/09/24 01/29/25 Rx tablet,delayed release mupirocin 2 % topical ointment 1 applic topical BID cellulitis 3 12/11/24 01/29/25 Rx weeks #22 grams clindamycin HCl 300 mg capsule 300 mg PO TID 7 days #21 caps 01/02/25 01/29/25 Rx (Cleocin HCl) lidocaine 5 % topical patch 1 patch topical DAILY #30 ea 01/15/25 01/29/25 Rx cyclobenzaprine 10 mg tablet 10 mg PO TID #90 tabs 01/29/25 Rx New Prescriptions to Start Prescriptions: cyclobenzaprine Karen Sanders Allergies Allergy/AdvReac Type Severity Reaction Status Date / Time cephalexin Allergy Unknown Verified 01/02/25 10:20 egg Allergy Verified 01/02/25 10:20 Assessment and Plan *Assessment and plan (1) Chronic pain of right knee: Status: Acute Category: Medical Code(s): M25.561 - Pain in right knee; G89.29 - Other chronic pain Plan Patient did have very limited range of motion of her right knee during today's visit along with tenderness on the posterior aspects/popliteal region. I did discuss with the patient the possibility that she may have a meniscus tear and even possible Arriaga's cyst playing a role of her increasing pain. Patient has not had any imaging of her right knee since 2021. I will put an x-ray order in as well as order MRI without contrast of her right knee. I will also refill her Flexeril and get her scheduled for a intra-articular knee injection. Risk and benefits were discussed with the patient and she would like to proceed forward with this plan of care. Patient has tried and failed conservative therapy including oral medication, heat and ice, topicals, at home stretching exercise for longer than 12 weeks. Patient has had chronic knee pain for longer than 3 years however this flareup has been in the last month where it is more severe. Patient will be scheduled for a right knee intra-articular injection. This will be done without fluoroscopic or ultrasound guidance. Patient has been instructed to contact the clinic with any concerns before the next appointment. Dr. Coyne has reviewed this note and agrees with this plan of care. This note was dictated using voice recognition software and make contain errors or omissions. All injections are used with Lidocaine, Bupivacaine and dexamethasone. Occasionally urine drug screen is needed to verify patient's compliance with our office pain contract. This is ordered based off specific treatments related to chronic pain with the potential to abuse certain medications.
--- NOTE | 2025-01-29 11:56 | XR_ITS ---
FINAL REPORT CLINICAL HISTORY: Chronic right knee pain FINDINGS: RIGHT KNEE 3 views of the right knee were obtained. There is no acute fracture or dislocation. There are minimal degenerative changes of the medial compartment. A moderate-sized joint effusion is seen. Visualized joint spaces are normally aligned. Soft tissues are unremarkable. IMPRESSION: Moderate-sized joint effusion without acute bony abnormality. Reviewed, Interpreted and Dictated by Meng Valverde MD Transcribed by Rossy Alcantara Authenticated and [facility]
== END 2025-01-29 23:59 | disposition home or self-care (01) ==
PROVIDERS: PCP Family Medicine; Visit Provider Nurse Practitioner Family
DX: M25.561 Pain in right knee (principal); G89.29 Other chronic pain; Z79.899 Other long term (current) drug therapy
CPT/HCPCS: 73562; 99212; G0463

== ENCOUNTER 2025-02-11 14:43 | Outpatient (CLI) | payer OTHER, SELFPAY ==
--- NOTE | 2025-02-11 14:46 | MR_ITS ---
PROCEDURE INFORMATION: Exam: MR Right Lower Extremity Joint Without Contrast, Knee Exam date and time: 02/11/2025 3:36 PM Age: 55 years old Clinical indication: Right knee pain with lump on lateral side of knee; Additional info: RT knee pain/mass RT axilla (neck plate) TECHNIQUE: Imaging protocol: Magnetic resonance imaging of the right lower extremity joint without contrast. Exam focused on the knee. COMPARISON: CR XR KNEE RT 3V 01/29/2025 12:16 PM FINDINGS: Bones/joints: Asymmetric, partial-thickness tricompartmental degenerative chondromalacia. Small effusion. Medial meniscus: Unremarkable. No tear. Lateral meniscus: Hyperintense signal extending to articular surface in posterior horn, medial meniscus. Hyperintense signal extending to articular surface in anterior horn, lateral meniscus. Anterior cruciate ligament: High-grade, partial-thickness attenuation. Posterior cruciate ligament: Unremarkable. No tear. Medial capsule and supporting structures: Unremarkable. No tear. Lateral capsule and supporting structures: Unremarkable. No tear. Extensor mechanism of knee: Unremarkable. No tear. Soft tissues: Fat attenuating homogeneous corresponding to symptomatic focus without abnormal signal or obvious mass. Other findings: Symptomatic area marked. IMPRESSION: 1. Fat isointense subcutaneous focus corresponding to symptomatic area favoring heterogeneous fat accumulation versus simple intrasubstance lipoma. 2. Chronic, degenerative posterior horn, medial meniscal and anterior horn, lateral meniscal tears. 3. Chronic, high-grade partial-thickness tears of anterior cruciate ligament. 4. Asymmetric, partial-thickness, tricompartmental degenerative chondromalacia. 5. Small effusion.
--- OUTSIDE RECORDS SUMMARY | 2025-02-11 14:47 | XMS_ITS | Clinical Summary ---
Author Organization [employer] ([place], [place]) Address [address] [place] [address] Care Team Providers Care Underground Mine Superintendent Name Role Phone Unavailable Primary Care Provider [...] (2.5 mg total) by mouth daily. Active Family History Medical History Relation Name Comments [...] VACCINE (2 - season) 04/07/202405/2021 Influenza Vaccine (#1) 2025 Insurance [employer] [facility]
--- OUTSIDE RECORDS SUMMARY | 2025-02-11 14:47 | XMS_ITS | Referral Summary ---
Author Organization [employer] ([place], [place], [place], [place]) Address [address] [place] [address] Care Team Providers Care Patient Financial Rep Name Role Phone Unavailable Primary Care Provider [...] EDT Plan of Treatment Not on file Insurance [facility]
--- NOTE | 2025-02-11 16:22 | US_ITS ---
FINAL REPORT CLINICAL HISTORY: MASS FINDINGS: Limited sonographic images were obtained of the soft tissues in the right axillary region at the area of reported palpable abnormality. There are multiple lymph nodes with the largest measuring up to 2.5 cm. There is no discrete mass seen separate from these lymph nodes. IMPRESSION: Multiple enlarged lymph nodes. Reviewed, Interpreted and Dictated by Geo Carranza MD Transcribed by Tory Morelos Authenticated and [facility]
== END 2025-02-11 23:59 | disposition home or self-care (01) ==
LOC: RAD 14:44
PROVIDERS: PCP Family Medicine; Visit Provider Nurse Practitioner Family
DX: M23.241 Derangement of anterior horn of lateral meniscus due to old tear or injury, right knee (principal); M23.221 Derangement of posterior horn of medial meniscus due to old tear or injury, right knee; R59.0 Localized enlarged lymph nodes; S83.511A Sprain of anterior cruciate ligament of right knee, initial encounter; M94.261 Chondromalacia, right knee; M25.461 Effusion, right knee
CPT/HCPCS: 73721; 76642

== ENCOUNTER 2025-02-12 12:50 | Outpatient (CLI) | payer OTHER, SELFPAY ==
[2025-02-12 09:31] VITALS: BMI 30.8
--- OUTSIDE RECORDS SUMMARY | 2025-02-12 12:53 | XMS_ITS | Referral Summary ---
Author Organization [employer] ([place], [place], [place], [place]) Address [address] [place] [address] Care Team Providers Care Bonding Machine Tender Name Role Phone Unavailable Primary Care Provider [...] Plan of Treatment Not on file Insurance [facility]
--- OUTSIDE RECORDS SUMMARY | 2025-02-12 12:53 | XMS_ITS | Clinical Summary ---
Author Organization [employer] ([place], [place], [place], [place]) Address [address] [place] [address] Care Team Providers Care Multineedle Shirrer Name Role Phone Unavailable Primary Care Provider [...] 04/07/202405/2021 Influenza Vaccine (#1) 2025 Insurance [employer] [facility]
--- NOTE | 2025-02-12 13:17 | ECG_ITS ---
APPROVED REPORT Exam: Resting ECG HR:82 bpm ECG Measurements Heart Rate 82 AXES MS 127 P 59 QRSd 80 QRS 62 QT 385 T 53 QTc 424 Conclusion SINUS RHYTHM NONSPECIFIC T-WAVE ABNORMALITY BORDERLINE ECG UNCONFIRMED REPORT Electronically signed by : Segundo Umanzor MD 02/14/2025 07:18:15
[2025-02-12 13:46] LABS: Hematocrit 43.2 % (37.0-47.0); Hemoglobin 14.8 g/dL (12.2-16.2); Immature Granulocytes % 0.5 %; Mean Corpuscular HGB Conc 34.3 g/dL (31.8-35.4); Mean Corpuscular Hemoglobin 29.7 pg (27.0-31.2); Mean Corpuscular Volume 86.6 fl (81-99); Nucleated Red Blood Cells % 0 %; Platelet Count 424 K/mm3 (142-424); Red Blood Count 4.99 M/mm3 (4.20-5.40); Red Cell Distribution Width-SD 39.4 fL; White Blood Count 10.8 K/mm3 (4.8-10.8)
[2025-02-12 13:50] LABS: Chloride 101 mmol/L (98-107); Sodium 137 mmol/L (136-145)
[2025-02-12 13:51] LABS: Potassium 4.0 mmoL/L (3.5-5.1)
[2025-02-12 13:53] LABS: Anion Gap 13.0 mEq/L (5-15); Blood Urea Nitrogen 8 mg/dl (7-17); Carbon Dioxide 27 mmol/L (22.0-30.0); Creatinine Clearance Estimated 127 mL/min (50-200); Creatinine,Serum 0.60 mg/dl (0.52-1.04); Estimated Glomerular Filt Rate 105 ml/min (>60); GFR (African American) 127 ML/MIN (>60)
[2025-02-12 14:00] LABS: Calcium 9.7 mg/dl (8.4-10.2); Glucose 154 mg/dl (74-100)
== END 2025-02-12 23:59 | disposition home or self-care (01) ==
LOC: PREOP 12:51
PROVIDERS: PCP Family Medicine; Visit Provider Anesthesiology
DX: Z01.810 Encounter for preprocedural cardiovascular examination (principal); Z01.812 Encounter for preprocedural laboratory examination; R94.31 Abnormal electrocardiogram [ECG] [EKG]
CPT/HCPCS: 80048; 85025; 93005

== ENCOUNTER 2025-02-14 11:58 | Day surgery (SDC) | payer OTHER, SELFPAY ==
[2025-02-12 13:48] VITALS: BMI 30.2
[2025-02-14 12:12] VITALS: BP 145/75; PULSE 91; RESP 17; TEMP 36.4; O2SAT 98
[2025-02-14] MEDS: LACTATED RINGERS 1000ML 1,000 ML 25 ML IV ×2 (12:29→13:37)
[2025-02-14 13:12] LABS: Amphetamine/Metha Screen,Urine Negative ng/ml (<1000)
[2025-02-14 13:13] LABS: Barbiturates Screen,Urine Negative ng/ml (<200); Benzodiazepines Screen,Urine Negative ng/ml (<200)
[2025-02-14 13:33] LABS: Methadone Screen,Urine Negative ng/ml (<300)
[2025-02-14 13:34] LABS: Opiate Screen,Urine Negative ng/ml (<300)
[2025-02-14 13:35] LABS: Phencyclidine Screen,Urine Negative ng/ml (<25)
--- NOTE | 2025-02-14 13:46 | P.PNANES_ITS ---
[facility] Disclaimer: The information contained in this section may have been updated after the patient was seen, as this information can be updated by other users. Medical History Trigger finger Depression HTN (hypertension) GERD (gastroesophageal reflux disease) Surgical History History of breast biopsy Hx of fusion of cervical spine History of surgery on arm History of bladder surgery History of partial hysterectomy Family History Other Family history of COPD (chronic obstructive pulmonary disease) Family history of cancer Family history of heart disease Family history of hypertension Family history of osteoarthritis Social History Smoking Status: Current every day smoker tobacco type: cigarettes alcohol intake: never substance use type: denies use current occupational status: unemployed Travel in the last 8 weeks?: None Have you lived/traveled outside US in past 30 days?: No Contact w/someone who lives/traveled outside US past 30 days?: No Exposure to someone with infectious disease in past 14 days?: No Do you have a fever (greater than 100.4 F or 38 C)?: No Have you tested positive for COVID-19?: No Exposed to someone with COVID-19 in past 14 days?: No Do you have a sore throat?: No Do you have a cough?: No Do you have any weakness?: No Do you have any diarrhea?: No Are you experiencing any unusual bleeding?: No Do you have any muscle aches/pain?: No Do you have any abdominal pain?: No Are you experiencing loss of taste or smell?: No [facility] Anesthesia Checklist Patient Identification Patient Identification: Arm Band and Verbal (Name & ) Structural Data Admitted From: Home Planned Operative Procedure/s: pain pump placement Consent for Planned Operative Procedure(s) Verified: Yes Verified Documents: Surgical Consent and History and Physical NPO Status Verified Time NPO: 00:00 Additional verifications Patient : No Anesthesia Reactions: No Hx Blood Transfusions: No Blood Transfusion Reaction: No Airway Assessment Mallampati Score:: Class II Dentition: Partials Neurological Assessment Level of Consciousness: Awake, Alert and Appropriate Hx Seizures: No Anesthesia Plan Anesthesia Risk discussed: Yes Anesthesia Plan: Verified ASA Class: II Anesthesia Type: MAC
[2025-02-14] MEDS: CLINDAMYCIN PHOSPHATE/D5W 900 MG/50 ML PIGGYBACK 100 MG IV (14:05)
[2025-02-14] MEDS: GENTAMICIN 80 MG/2 ML VIAL (14:20)
[2025-02-14] MEDS: SODIUM CHLORIDE 0.9% 20ML VIAL 40 ML IV (14:20)
[2025-02-14] MEDS: LIDOCAINE 2% w/EPI 1:200,000 20ML VIAL 40 ML (14:21)
[2025-02-14 15:14] VITALS: BP 109/66; PULSE 86; RESP 17; TEMP 36.8; O2SAT 96
[2025-02-14 15:24] VITALS: BP 128/91; PULSE 81; RESP 18; O2SAT 97
[2025-02-14 15:34] VITALS: BP 126/90; PULSE 81; RESP 17; O2SAT 98
--- NOTE | 2025-02-14 15:38 | EXP.OP.NOTE ---
Date of procedure: 02/14/25 Pre-op Diagnosis:: Degenerative disc disease of lumbar spine with lumbar radiculopathy symptoms Post-op Diagnosis:: Same Procedure performed:: Permanent placement intrathecal pain pump with tunneled intrathecal catheter and pain pump generator placement Surgeon:: Gordon Coyne MD AUTOMOTIVE PAINT TECHNICIAN:: Marshal Sweeney Anesthesia: MAC Estimated blood loss (mL): 15 Clinical Note:: This patient is a pleasant 55-year-old white female who we are treating for degenerative disease of lumbar spine with lumbar radiculopathy symptoms. This patient has failed all previous conservative treatments including injections, oral medications, physical therapy and she is not a surgical candidate. She has had a successful psychological evaluation and a successful intrathecal pump trial. She presents for permanent placement of her intrathecal pain pump today. Operative findings:: None Operative note:: Informed consent was obtained risk and benefits of the procedure were explained to the patient. The patient was taken to the operating room placed prone on the procedure table. She was prepped and draped in sterile fashion. C-arm fluoroscopy was used to view the left flank. [facility] between the 12th rib and iliac crests the skin and subcutaneous tissues were anesthetized using lidocaine. I made an incision dissected out the pump generator pocket. C arm fluoroscopy was then used to view the lumbar spine. The skin and subcutaneous tissues adjacent to the L4-5 and L5-S1 interspace were anesthetized using lidocaine. I made incision dissected down to the lumbar paraspinous fascia. A 17-gauge spinal needle was inserted and advanced into the L4-L5 interspace. After confirmation of needle placement, intrathecal catheter was inserted and advanced very easily to the T8 vertebral body. The stylette of the catheter and the needle were withdrawn. The catheter was secured in place with an anchoring device and 2-0 Prolene. The catheter was in good position it was midline and posterior. I filled the pump with 20 mL of intrathecal morphine 1 mg/mL. I tunneled the catheter from the back to the pump pocket attached catheter to the pump. We were able to freely withdraw clear CSF through the sideport. The pump was then placed in the pocket with an antibiotic pouch. Both incisions were then closed with 2-0 Vicryl followed by 4-0 nylon and neftaly. The patient tolerated the procedure well with no complications. Pump was interrogated and started at 100 mcg/day. Patient was discharged home neurologic intact with good relief of pain symptoms. Plan and disposition: We will follow-up with this patient in 1 week for wound check and reprogram. Will follow-up in 2 to 3 weeks for suture and staple removal. Condition: stable Disposition: PACU Complications:: None
[2025-02-14 15:44] VITALS: BP 134/87; PULSE 80; RESP 16; TEMP 37; O2SAT 97
== END 2025-02-14 15:50 | disposition home or self-care (01) ==
PROVIDERS: PCP Family Medicine; Visit Provider Anesthesiology
PROC: (CPT 62362; principal; 2025-02-14 13:35)
DX: M51.16 Intervertebral disc disorders with radiculopathy, lumbar region (principal); F32.A Depression, unspecified; K21.9 Gastro-esophageal reflux disease without esophagitis; I10 Essential (primary) hypertension; F17.210 Nicotine dependence, cigarettes, uncomplicated; Z79.899 Other long term (current) drug therapy; Z88.1 Allergy status to other antibiotic agents; Z91.012 Allergy to eggs; Z98.1 Arthrodesis status
CPT/HCPCS: 62362; 80307; 96374; C1755; C1772; J0736; J1580; J2003; J2004; J2250; J2704; J3010; J7120

== ENCOUNTER 2025-02-20 15:06 | Outpatient (POV) | payer OTHER, SELFPAY ==
[2025-02-20 15:14] VITALS: BP 153/88; PULSE 87; RESP 18; O2SAT 98; BMI 30.2
--- NOTE | 2025-02-20 15:26 | EXP.PAIN.SOA ---
[facility] Disclaimer: The information contained in this section may have been updated after the patient was seen, as this information can be updated by other users. Medical History Trigger finger Depression HTN (hypertension) GERD (gastroesophageal reflux disease) Surgical History History of breast biopsy Hx of fusion of cervical spine History of surgery on arm History of bladder surgery History of partial hysterectomy Family History Other Family history of COPD (chronic obstructive pulmonary disease) Family history of cancer Family history of heart disease Family history of hypertension Family history of osteoarthritis Social History Smoking Status: Current every day smoker tobacco type: cigarettes alcohol intake: never substance use type: denies use current occupational status: other Travel in the last 8 weeks?: None PM Subjective & Objective Subjective Subjective:: Patient is a pleasant 55-year-old female who presents today for 1 week postop of her intrathecal pain pump implant. She rates her pain today a 2 out of 10. She denies any new trauma or injury. She does state that overall she is already noticed a difference with the pump. She is thinking today it is more incisional pain that she is feeling. Patient is currently managed with morphine 1 mg/mL with 100 mcg/day. She denies any side effects. Her Musa has been reviewed and is appropriate. Review of Systems: General: No recent weight changes, no fever, no sleep disturbances Respiratory: No cough, no shortness of air, no recurring pulmonary infections Cardiovascular/peripheral vascular: No chest pain, no palpitations, no edema, no shortness of breath Gastrointestinal: No new onset incontinence, normal bowel movements reported Genitourinary: No new onset incontinence Musculoskeletal: Low back pain Psychiatric: [Normal mood/affect] Neurological: [Denies weakness in extremities], [denies balance issues] Pain at rest (0-10 scale): 2 Objective Objective:: Physical Exam: General: Alert and oriented x3, no acute distress, pleasant and cooperative Lungs: Respirations even and unlabored, symmetrical chest expansion Eyes: PERRL Musculoskeletal: Flexion and extension of lumbar [spine] somewhat guarded secondary to pain, [antalgic gait noted] Neurological: Speech clear, no gross sensory deficit Skin: Incision sites are clean, dry, well-approximated with sutures and neftaly intact, minimal erythema noted Has patient had previous pain injection?: No Conservative treatment options previously tried: Home exercise plan Length of treatment: Longer than 12 weeks Meds Home Medications and Allergies Home Medications ?Medication ?Instructions ?Recorded ?Confirmed ?Type amlodipine 2.5 mg tablet 2.5 mg PO DAILY BLOOD PRESSURE 03/07/24 02/20/25 History lisinopril 20 mg tablet 20 mg PO BID BLOOD PRESSURE 03/07/24 02/20/25 History paroxetine HCl 20 mg tablet 20 mg PO DAILY MOOD 03/07/24 02/20/25 History diclofenac sodium 75 mg 75 mg PO BID #60 tabs 09/09/24 02/20/25 Rx tablet,delayed release mupirocin 2 % topical ointment 1 applic topical BID cellulitis 3 12/11/24 02/20/25 Rx weeks #22 grams cyclobenzaprine 10 mg tablet 10 mg PO TID #90 tabs 01/29/25 02/20/25 Rx lidocaine 5 % topical patch See Rx Instructions .Route 02/10/25 02/20/25 Rx .COMPLEX #30 patches doxycycline hyclate 100 mg tablet 100 mg PO DAILY 02/12/25 02/20/25 History sulfamethoxazole 800 1 tab PO BID #10 tabs 02/14/25 02/20/25 Rx mg-trimethoprim 160 mg tablet New Prescriptions to Start Prescriptions: Allergies Allergy/AdvReac Type Severity Reaction Status Date / Time cephalexin Allergy Unknown Unknown Verified 02/14/25 12:08 allergy reaction egg Allergy Vomiting Verified 02/14/25 12:08 Assessment and Plan *Assessment and plan (1) Lumbar radiculopathy: Status: Acute Category: Medical Code(s): M54.16 - Radiculopathy, lumbar region (2) Degenerative disc disease, lumbar: Status: Acute Category: Medical Code(s): M51.369 - Other intervertebral disc degeneration, lumbar region without mention of lumbar back pain or lower extremity pain (3) Chronic pain syndrome: Status: Acute Category: Medical Code(s): G89.4 - Chronic pain syndrome Plan FINDINGS: Bones/joints: Asymmetric, partial-thickness tricompartmental degenerative chondromalacia. Small effusion. Medial meniscus: Unremarkable. No tear. Lateral meniscus: Hyperintense signal extending to articular surface in posterior horn, medial meniscus. Hyperintense signal extending to articular surface in anterior horn, lateral meniscus. Anterior cruciate ligament: High-grade, partial-thickness attenuation. Posterior cruciate ligament: Unremarkable. No tear. Medial capsule and supporting structures: Unremarkable. No tear. Lateral capsule and supporting structures: Unremarkable. No tear. Extensor mechanism of knee: Unremarkable. No tear. Soft tissues: Fat attenuating homogeneous corresponding to symptomatic focus without abnormal signal or obvious mass. Other findings: Symptomatic area marked. IMPRESSION: 1. Fat isointense subcutaneous focus corresponding to symptomatic area favoring heterogeneous fat accumulation versus simple intrasubstance lipoma. 2. Chronic, degenerative posterior horn, medial meniscal and anterior horn, lateral meniscal tears. 3. Chronic, high-grade partial-thickness tears of anterior cruciate ligament. 4. Asymmetric, partial-thickness, tricompartmental degenerative chondromalacia. 5. Small effusion. We did discuss her knee and the possibility of sending her to orthopedics for evaluation. We will review this at her upcoming appointment. Patient was counseled that she is on her postop restrictions the full 6 weeks including no submerging in water until her incisions are fully healed, minimal bending, twisting and lifting and to continue to use her abdominal binder to prevent seroma formation. Patient acknowledges understanding agrees with plan of care. Patient will return to clinic in 2 weeks for suture and staple removal. We will see the patient back in the clinic at the next intrathecal refill. Patient has been instructed to contact the clinic with any concerns before the next appointment. Dr. Coyne has reviewed this note and agrees with this plan of care. This note was dictated using voice recognition software and make contain errors or omissions. -- It Is medically necessary for this patient to continue to have their intrathecal pump refilled at regular intervals. This patient had an intrathecal pain pump implanted after meeting criteria of chronic intractable pain for greater than 3 months and failing conservative treatments. Patient has committed and been compliant to the treatment plan and all planned follow up care. Since implantation of the intrathecal pain pump, the patient has had decreased pain and been more functional. Oral medications have been reduced including intake of oral opioids. Patient continues to do well with intrathecal therapy with decrease in pain symptoms and increase in functional status. Stopping intrathecal medications can lead to life threatening withdrawal, seizures, cardiac arrest, severe pain, and possible . Pumps that are not refilled at regular intervals can be damages and cause and need for replacement. We continually titrate dose and concentration to optimize pain relief and function. We are limited in concentration for certain drugs to safely deliver medications through the pump and stay within the recommendations from the Polyanalgesic Consensus Committee Guidelines. Depending on dose and concentration these pumps may need to be refilled sooner than 3 months as we titrate. A UDS is needed to verify patient's compliance with our office pain contract. This is ordered based off specific treatments related to chronic pain with the potential to abuse certain medications.
--- OUTSIDE RECORDS SUMMARY | 2025-02-20 15:34 | XMS_ITS | Referral Summary ---
Author Organization [employer] ([place], [place], [place], [place]) Address [address] [place] [address] Care Team Providers Care Benefits Processor Name Role Phone Unavailable Primary Care Provider [...] Plan of Treatment Not on file Insurance [facility]
--- OUTSIDE RECORDS SUMMARY | 2025-02-20 15:34 | XMS_ITS | Clinical Summary ---
Author Organization [employer] ([place], [place], [place], [place]) Address [address] [place] [address] Care Team Providers Care Food Service Supervisor Name Role Phone Unavailable Primary Care [...] 04/07/202405/2021 Influenza Vaccine (#1) 2025 Insurance AETNA [facility]
== END 2025-02-20 23:59 | disposition home or self-care (01) ==
LOC: SC.PAIN 15:07
PROVIDERS: PCP Family Medicine; Visit Provider Nurse Practitioner Family
DX: M51.16 Intervertebral disc disorders with radiculopathy, lumbar region (principal); G89.4 Chronic pain syndrome; Z79.891 Long term (current) use of opiate analgesic
CPT/HCPCS: 99212; G0463

== ENCOUNTER 2025-03-06 13:28 | Outpatient (POV) | payer OTHER, SELFPAY ==
--- OUTSIDE RECORDS SUMMARY | 2025-02-18 10:39 | XMS_ITS ---
Author Organization [facility] Address [address] [facility] [address] [place] [id number] Care Team Providers Care Green Chain Marker Name Role Phone Isabella Waters Primary Care Provider ComerNorma leighine Unavailable [phone] REASON FOR VISIT due katherine, col Encounters Encounter Location Date [place] [address] [facility] [address] [place] [id number] 02/18/2025 Isabella Waters Screening for breast cancer [...] Notes * XIAO BRITODOB:1970 (55 yo F)Acc No.[id number]:02/18/2025 Patient: XIAO HUBER :1970 A ge:55 Y S ex:Female Address:[address] [place] [address], [place] [address] Subjective: * Chief Complaints: * D ue [...] 7:13 PM EDT >sent to [facility] for [facility] Maria order . Address verified * Procedure Codes: * true * Date: Generated for King noonan/Harmeet/Marcelina on: 0 03/06/2025 01:30 PM EDT
--- OUTSIDE RECORDS SUMMARY | 2025-03-06 13:31 | XMS_ITS | Patient Health Record ---
[facility] Address [address] [place] [id number] Care Team Providers Care Oil Recovery Operator Name Role Phone Isabella Waters Primary Care Provider [phone] Beatriz Comer Unavailable [phone] Jules Cifuentes Unavailable [phone] Velia Mccord Unavailable [phone] Allergies Allergen (clinical drug ingredient) Drug/Non Drug Allergy documented on EMR Reaction Allergy Type Onset Date Status cephalexin Cephalexin swelling Drug Allergy Activ e Results Component Value Reference Range Notes ultrasound : Axilla, right Reviewed date:02/13/2025 10:31:22 AM Interpretation:Enlarged Lymph Nodes Performing Lab: Notes/Report: Enlarged Lymph Nodes CBC Fingerstick (in house) Reviewed date:02/06/2025 04:54:43 [...] - 38 plat 265 100 - 400 Pulmonary Function Complete Reviewed date:11/11/2024 11:24:56 AM Interpretation:no evidence of obstructive lung disease Performing Lab: Notes/Report: no evidence of obstructive lung disease Medications Medication SIG (Take, Route, Frequency, Duration) Notes Start Date End Date Status Benzonatate 200 MG 1 capsule as needed Orally Three times a day Active Doxycycline Monohydrate 100 MG 1 capsule Orally Once a day; Duration: 10 days 02/05/2025 Active Diclofenac Sodium 75 MG 1 tablet as need ed Orally Twice a day Active Nebulizer/Tubing/Mouthpiece - as directed Active Trelegy Ellipta 200-62.5-25 MCG/ACT 1 puff Inhalation Once a day 10/04/2024 Active Triamcinolone Acetonide 0.1 % 1 application Externally Twice a day 04/11/2023 Active Albuterol Sulfate HFA 108 (90 Base) MCG/ACT 2 puff(s) inhaled every 6 hours and prn SOB or wheezing; Duration: 90 days 06/22/2021 Active amLODIPine Besylate 2.5 MG 1 tablet Oral ly Once a day; Duration: 90 days Active Mupirocin 2 % 1 application Mechanical Commissioning Engineer ally Twice a day; Duration: 5 day(s) Active Ipratropium-Albuterol 0.5-2.5 (3) MG/3ML 3 ml Inhalation Four times a day Active Omeprazole 40 MG 1 cap(s) orally once a day; Duration: 30 day(s) 11/16/2021 Active Trelegy Ellipta 100-62.5-25 MCG/ACT 1 puff Inhalation Once a day 10/09/2024 Active PARoxetine HCl 20 MG 1 tablet in the mor allegra Orally Once a day; Duration: 90 days Active Mometasone Furoate 0.1 % 1 application E xternally Once a day Active Lisinopril 40 MG 1 tablet Orally once daily 04/07/2021 Active predniSONE 20 MG 1 tablet Orally Two times a day; Duration: 5 day(s) 11/16/2023 Active Immunizations Vaccine Route Administration Date Status Comme nts COVID 19 Moderna Unknown 03/16/2021 Administered Hep A- Pediatric Unknown 07/11/2018 Administered Hep A- Pediatric Unknown 02/01/2019 Administered Hepatitis B (20 and more) Unknown 04/22/2014 Administer ed Hepatitis B (20 and more) Unknown 05/27/2014 Administer ed Hepatitis B (20 and more) Unknown 10/21/2014 Administer ed Problems Problem Type SNOMED Code ICD Code Onset Dates Problem Status W/U Status Risk Notes Problem Sciatica (20748604) Sciatica (M54.30) Active confirmed Problem Hypertension (04328904) HTN (hypertension) (I10) Active confirmed Problem Vitamin D deficiency (66016771) Vitamin D deficiency (E55.9) Active confirmed Problem Screening for malignant neoplasm of cervix (741876433) Pap smear for cervical cancer screening (Z12.4) Active confirmed Problem Sciatic nerve lesion (607413047) Piriformis syndrome of right side (G57.01) Active confirmed Problem Sciatic nerve lesion (274656940) Piriformis syndrome of left side (G57.02) Active confirmed Problem Acute exacerbation of chronic obstructive airways disease (170828439) COPD exacerbation (J44.1) Active confirmed Problem Sciatica (60939333) Sciatica of left side (M54.32) Active confirmed Problem Mixed hyperlipidemia (845501723) Mixed hyperlipidemia (E78.2) Active confirmed Problem Fatty liver (862854174) Fatty liver (K76.0) Active confirmed Problem Cervical disc disease (744158684) Cervical disc disease (M50.90) Active confirmed Problem Uterine leiomyoma (65179481) Uterine leiomyoma, unspecified location (D25.9) Active confirmed Problem Carpal tunnel syndrome of right wrist (700178509283258) Carpal tunnel syndrome of right wrist (G56.01) Active confirmed Problem Polyarthritis (710089633) Polyarthritis (M13.0) Active confirmed Problem Pain in pelvis (94116559) Pelvic pain (R10.2) Active confirmed Problem Ingrowing nail (124336146) Ingrown left greater toenail (L60.0) Active confirmed Problem Cholecystitis (45464484) Cholecystitis (K81.9) Active confirmed Problem Menstrual periods irregular (70083359) Menstrual periods irregular (N92.6) Active confirmed Problem Anogenital warts (088339449) HPV in female (A63.0) Active confirmed Problem Tobacco use (492588997) Tobacco use disorder (F17.200) Active confirmed Problem Lumbar spondylosis (869633703) Lumbar spondylosis (M47.816) Active confirmed Vital Signs Heart Rate 92 /min 02/05/2025 Blood pressure diastolic 92 mm Hg 02/05/2025 Height 61 in 02/05/2025 Blood pressure systolic 170 mm Hg 02/05/2025 Weight 160.8 lbs 02/05/2025 BMI 30.38 kg/m2 02/05/2025 Encounters Encounter Location Date Provider Diagnosis [facility] [address] [place], [place] [id number] 10/01/2024 R Lb Esau Acute bronchitis J20 .9 ; COPD exacerbation J44.1 and Tobacco use disorder F17.200 [facility] [address] [place], [place] [id number] 10/04/2024 Velia Crowdy Acute bronchitis J20 .9 ; COPD exacerbation J44.1 and Tobacco use disorder F17.200 [facility] [address] [place], [place] [id number] 10/09/2024 Velia Crowdy Acute bronchitis J20 .9 ; COPD exacerbation J44.1 and Tobacco use disorder F17.200 [facility] [address] [place], [place] [id number] 10/24/2024 Velia Crowdy Trochanteric bursiti s, left hip M70.62 and Left hip pain M25.552 [facility] [address] [place], [place] [id number] 02/05/2025 Velia Crowdy Mass of right axilla R22.31 [facility] [address] [place], [place] [id number] 03/15/2024 Isabella Waters Dyshidrotic eczema L30.1 [facility] [address] [place], [place] [id number] 10/09/2024 Isabella Waters [facility] [address] [place], [place] [id number] 11/12/2024 R Lb Esau [facility] [address] [place], [place] [id number] 01/13/2025 J Mason Waters Wheezing R06.2 [facility] [address] [place], [place] [id number] 02/13/2025 Velia Crowdy [facility] [address] [place], [place] [id number] 02/18/2025 Isabella Waters Screening for breast cancer Z12.39 and Screening for colon cancer Z12.11 [facility] [address] [place], [place] [id number] 02/26/2025 Velia Mccord Assessments Encounter Date Diagnosis (ICD Code) Assessment Notes Treatment Notes Treatment Clinical Notes Section Notes 10/09/2024 Acute bronchitis (ICD-10 - J20.9) Much improved. 10/09/2024 COPD exacerbation (ICD-10 - J44.1) Trelegy has helped. Will send in a rx. Will also check PFT's in a few weeks. 10/04/2024 Acute bronchitis (ICD-10 - J20.9) 10/04/2024 COPD exacerbation (ICD-10 - J44.1) Gave a sample of trelegy to begin using. Will f/u in 1 week. 10/24/2024 Left hip pain (ICD-10 - M25.552) 10/24/2024 Trochanteric bursitis, left hip (ICD-10 - M70.62) Patient has had 2 x-rays of the hip and they were normal. She continues with pain and exam is positive for trochanteric bursitis. She may benefit from an injection. Will make ortho referral. 01/13/2025 Wheezing (ICD-10 - R06.2) 02/05/2025 Mass of right axilla (ICD-10 - R22.31) 02/18/2025 Screening for breast cancer (ICD-10 - Z12.39) 02/18/2025 Screening for colon cancer (ICD-10 - Z12.11) 03/15/2024 Dyshidrotic eczema (ICD-10 - L30.1) 10/01/2024 Acute bronchitis (ICD-10 - J20.9) 10/01/2024 COPD exacerbation (ICD-10 - J44.1) 10/01/2024 Tobacco use disorder (ICD-10 - F17.200) 10/04/2024 Tobacco use disorder (ICD-10 - F17.200) 10/09/2024 Tobacco use disorder (ICD-10 - F17.200) Plan Of Treatment Pending Test Test Name Order Date Mammogram 02/18/2025 Cologuard 02/18/2025 Insurance Providers Payer Name Payer Address Payer Phone Subscriber Number Group Number Insured Name Patient Relationship to Insured Coverage Start Date Coverage End Date AETNA [facility] [address] LOUISA STRONG [id number] XIAO BRITO Self - patient is the insured Medications Administered Medication Instructions Date of Administration Dosage Notes Depo- Medrol 40 mg/ml 01/05/2022 1.5 mL Depo- Medrol 40 mg/ml 03/09/2023 1.5 mL Dexamethasone 01/27/2016 1 mL Dexamethasone 07/17/2017 1 mL Dexamethasone 10/02/2023 1 mL Medical (General) History Medical History History ICD Code 2 Ureters on Right Side HBP Tobacco abuse COPD Surgical History Surgery Date(Month/Year) right arm -ulna reduction BTL Partial Hysterectomy, Mesh holding [facility] 06/28/2017 Bone Spur Removed from Neck 03/09/2022 Trigger Finger 05/2022 Hospitalization History Reason Date(Month/Year) [facility]- Partial Hysterectomy, [facility] Holing Bladder 06/28/2017 [facility] ER-bronchitis, Pneumonia, Plurisy
--- OUTSIDE RECORDS SUMMARY | 2025-03-06 13:31 | XMS_ITS | Clinical Summary ---
Author Organization [employer] ([place], [place], [place], [place]) Address [address] [place] [address] Care Team Providers Care Sales Representative Leather Goods Name Role Phone Unavailable Primary Care Provider [...] 04/07/202405/2021 Influenza Vaccine (#1) 2025 Insurance AETNA [facility]
--- OUTSIDE RECORDS SUMMARY | 2025-03-06 13:31 | XMS_ITS | Referral Summary ---
Author Organization [employer] ([place], [place], [place], [place]) Address [address] [place] [address] Care Team Providers Care Truck Headlight Assembler Name Role Phone Unavailable Primary Care Provider [...] Plan of Treatment Not on file Insurance [facility]
--- NOTE | 2025-03-06 13:52 | EXP.PAIN.PRO ---
Procedure Date: 03/06/25 Time: 13:52 Anesthesiologist:: Karen Sanders APRN Complications:: None Pre-procedure Diagnosis:: Degenerative disc disease of lumbar spine with lumbar radiculopathy symptoms, chronic pain syndrome Post-procedure Diagnosis:: Same Indications for Procedure:: Patient is a pleasant 55-year-old female who presents today for suture and staple removal. Today she rates her pain a 4 out of 10. She denies any new trauma or injury. She states overall that she has done well. Patient is currently managed with morphine 1 mg/mL with 100 mcg/day. She denies any side effects. Her Musa has been reviewed and is appropriate. Physical Exam: General: Alert and oriented x3, no acute distress, pleasant and cooperative Lungs: Respirations even and unlabored, symmetrical chest expansion Eyes: PERRL Musculoskeletal: Flexion and extension of lumbar [spine] somewhat guarded secondary to pain, [antalgic gait noted] Neurological: Speech clear, no gross sensory deficit Skin: Incision sites are clean, dry, well-approximated with sutures and neftaly intact, minimal erythema noted along the lateral incision Procedure Details:: Informed consent was obtained and the risk and benefits of the procedure were explained to the patient. Patient did have noninvasive monitoring was placed including noninvasive blood pressure cuff and pulse oximeter. Patient's pump was interrogated and was reprogrammed to morphine 0.1049 mg/day. the patient tolerated the procedure well with no complications. Plan and Disposition:: Patient was counseled that she is on her postop restrictions the full 6 weeks including no submerging in water until her incisions are fully healed, minimal bending, twisting and lifting and to continue to use her abdominal binder to prevent seroma formation. Patient acknowledges understanding agrees with plan of care. Patient was able to have all of her sutures and neftaly removed along the midline incision and most of them in the lateral incision. We did leave a couple neftaly. Patient will return to clinic in 1 week for the remainder staple removal. Patient agrees with this plan of care. Patient did tolerate her intrathecal increase with no complications. We will see the patient back in the clinic at the next intrathecal refill. Patient has been instructed to contact the clinic with any concerns before the next appointment. Dr. Coyne has reviewed this note and agrees with this plan of care. This note was dictated using voice recognition software and make contain errors or omissions. -- It Is medically necessary for this patient to continue to have their intrathecal pump refilled at regular intervals. This patient had an intrathecal pain pump implanted after meeting criteria of chronic intractable pain for greater than 3 months and failing conservative treatments. Patient has committed and been compliant to the treatment plan and all planned follow up care. Since implantation of the intrathecal pain pump, the patient has had decreased pain and been more functional. Oral medications have been reduced including intake of oral opioids. Patient continues to do well with intrathecal therapy with decrease in pain symptoms and increase in functional status. Stopping intrathecal medications can lead to life threatening withdrawal, seizures, cardiac arrest, severe pain, and possible . Pumps that are not refilled at regular intervals can be damages and cause and need for replacement. We continually titrate dose and concentration to optimize pain relief and function. We are limited in concentration for certain drugs to safely deliver medications through the pump and stay within the recommendations from the Polyanalgesic Consensus Committee Guidelines. Depending on dose and concentration these pumps may need to be refilled sooner than 3 months as we titrate. A UDS is needed to verify patient's compliance with our office pain contract. This is ordered based off specific treatments related to chronic pain with the potential to abuse certain medications.
[2025-03-06 14:29] VITALS: BP 153/98; BP 162/93; PULSE 72; RESP 14; O2SAT 97; BMI 30.2
== END 2025-03-06 23:59 | disposition home or self-care (01) ==
PROVIDERS: PCP Family Medicine; Visit Provider Nurse Practitioner Family
DX: M51.16 Intervertebral disc disorders with radiculopathy, lumbar region (principal); G89.4 Chronic pain syndrome
CPT/HCPCS: 99212; G0463

== ENCOUNTER 2025-03-06 14:40 | Outpatient (CLI) | payer OTHER, SELFPAY ==
--- OUTSIDE RECORDS SUMMARY | 2025-02-05 07:15 | XMS_ITS ---
Author Organization [facility] Address [address] [facility] [address] [place] [id number] Care Team Providers Care Carpenter Streetcar Name Role Phone Isabella Waters Primary Care Provider Beatriz Comer Unavailable [phone] Velia Mccord Unavailable [phone] Allergies Allergen (clinical drug ingredient) Drug/Non Drug [...] days Active Mupirocin 2 % 1 application Practice Specialist ally Twice a day; Duration: 5 day(s) [...] 02/05/2025 Encounters Encounter Location Date Provider Diagnosis [facility] [address] [facility] [address] [place], [place] [id number] 02/05/2025 Velia Mccord Mass of right axilla [...] Notes * XIAO BRITODOB:1970 (55 yo F)Acc No.[id number]:02/05/2025 Progress Notes Patient: XIAO HUBER Provider: DEBBIE Aviles :1970 A ge:55 Y S ex:Female Date:02/05/2025 Address:[address] [place] [address], [facility] [id number] Pcp:Isabella Waters Subjective: * Chief Complaints: * [...] , Partial Hysterectomy, Mesh holding Bladder- [facility] 06/28/2017, Bone Spur Removed from Neck 03/09/2022, Trigger Finger 05/2022. * Hospitalization/Major Diagno stic Procedure: [facility] ER-bronchitis, Pneumonia, Plurisy 05/2017, [facility]- Partial Hysterectomy, Mesh Holing Bladder 06/28/2017. * [...] PM EDT > no auth required through [facility]; CPT code 54389; faxed to [facility] Celine Flores 02/13/2025 10:31:16 AM EDT > See phone encounter * Procedure Codes: 3 6416 CAPILLARY BLOOD DRAW, 64006 CBC WITH AUTO DIFF * Follow Up: v ia phone to report test results * Images: Billing Information: * Visit Code: 16381 Office Visit, Est Pt., Level 3. * Procedure Codes: 33873 CAPILLARY BLOOD DRAW. 36364 CBC WITH AUTO DIFF. * Electronic signature of DEBBIE Metz on 03/06/2025 at 02:43 PM EDT Sign off status: Pending * Provider: DEBBIE Aviles Date: 02/05/2025 Generated for King noonan/Harmeet/eTransmitting on: 03/06/2025 02:43 PM EDT History and Physical Notes * Examination Category Sub-Category Detail Notes Category Not es General Examination Heart: RSR Lungs: clear to auscultatio n Extremities: right axilla with a palpable tender mass, no erythema General Appearance: NAD Chest: normal shape and exp ansion
--- NOTE | 2025-03-06 14:42 | MM_ITS ---
PROCEDURE INFORMATION: Exam: MG Bilateral Screening 3D Mammography Exam date and time: 03/06/2025 2:53 PM Age: 55 years old Clinical indication: Screening examination TECHNIQUE: Imaging protocol: Bilateral Screening tomosynthesis and 2D mammography including computer-aided detection (CAD) when performed. COMPARISON: 1. MG MM DIG SCREENING MAMM BI W/CAD 12/27/2022 8:24 AM 2. MG MM DIG SCREENING MAMM BI W/CAD 12/17/2021 8:24 AM FINDINGS: MAMMOGRAPHY: Breast composition: The breasts are heterogeneously dense, which may obscure small masses. Mass: None. Architectural distortion: None. Calcifications: No suspicious calcifications. Asymmetric density: None. Skin thickening: None. Axillary adenopathy: None. IMPRESSION: No mammographic evidence of malignancy. Annual screening is recommended unless otherwise clinically indicated. ASSESSMENT: BI-RADS Category 1: Negative.
--- OUTSIDE RECORDS SUMMARY | 2025-03-06 14:44 | XMS_ITS | Clinical Summary ---
Author Organization [employer] ([place], [place], [place], [place]) Address [address] [place] [address] Care Team Providers Care Manager Corporate Strategy Name Role Phone Unavailable Primary Care Provider [...] 04/07/202405/2021 Influenza Vaccine (#1) 2025 Insurance [employer]ETNA [facility]
--- OUTSIDE RECORDS SUMMARY | 2025-03-06 14:44 | XMS_ITS | Referral Summary ---
Author Organization [employer] ([place], [place], [place], [place]) Address [address] [place] [address] Care Team Providers Care Claim Administrator Name Role Phone Unavailable Primary Care Provider [...] Plan of Treatment Not on file Insurance [facility]
== END 2025-03-06 23:59 | disposition home or self-care (01) ==
LOC: RAD 14:40
PROVIDERS: PCP Family Medicine; Visit Provider Family Medicine
DX: Z12.31 Encounter for screening mammogram for malignant neoplasm of breast; R92.333 Mammographic heterogeneous density, bilateral breasts
CPT/HCPCS: 77063; 77067

== ENCOUNTER 2025-03-10 13:39 | Outpatient (POV) | payer OTHER, SELFPAY ==
--- OUTSIDE RECORDS SUMMARY | 2024-10-24 10:00 | XMS_ITS ---
[facility] [address] [place] [id number] Care Team Providers Care Dye Machine Tender Name Role Phone Isabella Waters Primary Care Provider Beatriz Comer Unavailable [phone] Velia Mccord Unavailable [phone] Allergies Allergen (clinical drug ingredient) Drug/Non Drug Allergy documented on EMR Reaction Allergy Type Onset Date Status cephalexin Cephalexin swelling Drug Allergy Activ e Reason For Referral Diagnosis 1 Trochanteric bursiti s, left hip (M70.62) Referral Organization [facility] Referring Provider First Name Velia Referring Provider Last Name Suri Referring Provider Speciality Physician Sanitary Engineering Teacher Referred Provider Orthopedics, . Referred Provider Specialty Orthopedic S urgery General Notes Velia Mccord 10/24 2:25:10 PM > Pt needs referral to [facility] in [place], telephone number is . Please send x-rays of left hip from 2021 and 2023, Odalys Orellana 10/24/2024 2:48:07 PM > faxed all information to [facility] Referral Priority Routine REASON FOR VISIT Hip, Leg, Knee, and Foot Pain Medications Medication SIG (Take, Route, Frequency, Duration) Notes Start Date End Date Status PARoxetine HCl 20 MG 1 tablet in the mor allegra Orally Once a day; Duration: 90 days Active Doxycycline Hyclate 100 MG 1 tablet Oral ly Once a day Active Mometasone Furoate 0.1 % 1 application E xternally Once a day Active Benzonatate 200 MG 1 capsule as needed Orally Three times a day Active Trelegy Ellipta 200-62.5-25 MCG/ACT 1 puff Inhalation Once a day 10/04/2024 Active amLODIPine Besylate 2.5 MG 1 tablet Oral ly Once a day; Duration: 90 days Active Triamcinolone Acetonide 0.1 % 1 application Externally Twice a day 04/11/2023 Active Lisinopril 40 MG 1 tablet Orally once daily 04/07/2021 Active predniSONE 20 MG 1 tablet Orally Two times a day; Duration: 5 day(s) 11/16/2023 Active Omeprazole 40 MG 1 cap(s) orally once a day; Duration: 30 day(s) 11/16/2021 Active Trelegy Ellipta 100-62.5-25 MCG/ACT 1 puff Inhalation Once a day 10/09/2024 Active Mupirocin 2 % 1 application Cross Roller ally Twice a day; Duration: 5 day(s) Active Diclofenac Sodium 75 MG 1 tablet as need ed Orally Twice a day Active Ipratropium-Albuterol 0.5-2.5 (3) MG/3ML 3 ml Inhalation Four times a day Active Albuterol Sulfate HFA 108 (90 Base) MCG/ACT 2 puff(s) inhaled every 6 hours and prn SOB or wheezing 06/22/2021 Active Nebulizer/Tubing/Mouthpiece - as directed Active Vital Signs Weight 163.2 lbs 10/24/2024 Blood pressure systolic 130 mm Hg 10/25/19 25 Blood pressure diastolic 74 mm Hg 025 Heart Rate 108 /min 10/24/2024 Height 61 in 10/24/2024 BMI 30.83 kg/m2 10/24/2024 Encounters Encounter Location Date Provider Diagnosis [facility] [address] [facility] [address], [place] [id number] 10/24/2024 Velia Mccord Trochanteric bursiti s, left hip M70.62 and Left hip pain M25.552 Assessments Encounter Date Diagnosis (ICD Code) Assessment Notes Treatment Notes Treatment Clinical Notes Section Notes 10/24/2024 Trochanteric bursitis, left hip (ICD-10 - M70.62) Patient has had 2 x-rays of the hip and they were normal. She continues with pain and exam is positive for trochanteric bursitis. She may benefit from an injection. Will make ortho referral. 10/24/2024 Left hip pain (ICD-10 - M25.552) Plan Of Treatment Treatment Notes Assessment Notes Trochanteric bursitis, left hip Patient has had 2 x-rays of the hip and they were normal. She continues with pain and exam is positive for trochanteric bursitis. She may benefit from an injection. Will make ortho referral. Referrals Referral Date Details 10/24/2024 10/24/2024, . Orthop edics Next Appt Details Follow Up: with ortho, Reaso n: Progress Notes * XIAO BRITODOB:1970 (55 yo F)Acc No.[id number]:10/24/2024 Progress Notes Patient: XIAO HUBER Provider: DEBBIE Aviles :1970 A ge:54 Y S ex:Female Date:10/24/2024 Address:[address] [place] [address], [facility] [id number] Pcp:Isabella Waters Subjective: * Chief Complaints: * 1 . Hip, Leg, Knee, and Foot Pain. * HPI: H ip/Thigh: 54 year old female presents with c/o hip pain P t complains of ongoing lt hip pain. Pt states that she does see pain management for her back and hip pain but she feels like PM is focused on her back. Pt states that walking is painful and she would like to know what may be causing the pain. * ROS: D ERMATOLOGY: no R deisy. n o H stephany. G ASTROENTEROLOGY: no N ausea. n o V omiting. U ROLOGY: no D ifficulty urinating. n o B lood in urine. * Medical History: 2 Ureters on Right Side, HBP, Tobacco abuse, COPD. * Surgical History: r ight arm -ulna reduction , BTL , Partial Hysterectomy, Mesh holding Bladder- [facility] 06/28/2017, Bone Spur Removed from Neck 03/09/2022, Trigger Finger 05/2022. * Hospitalization/Major Diagno stic Procedure: H ER-bronchitis, Pneumonia, Plurisy 05/2017, [facility]- Partial Hysterectomy, Mesh Holing Bladder 06/28/2017. * Family History: F ather: alive. M other: alive. P aternal Grand Father: . P aternal Grand Mother: alive. M aternal Grand Father: alive. M aternal Grand Mother: alive. 1 brother(s) , 3 sister(s) . 1 son(s) , 2 daughter(s) . . * Social History: C URRENT TOBACCO USE S moking Status: P atient does smoke, p acks per day: 1 ,?number of cigarettes per day: 2 5, S mikayla age of: 3 6, S moking preference: cigarettes. C affeine: yes, frequency:daily. Home smoke detector use: yes. Past smoking status: yes, PPD: , years: ,determination:1 pack, 16 yrs. Alcohol: no. * Medications: T aking Diclofenac Sodium 75 MG Tablet Delayed Release 1 tablet as needed Orally Twice a day , Taking Mupirocin 2 % Ointment 1 application Externally Twice a day , Taking Albuterol Sulfate HFA 108 (90 Base) MCG/ACT Aerosol Solution 2 puff(s) inhaled every 6 hours and prn SOB or wheezing , Taking Omeprazole 40 MG Capsule Delayed Release 1 cap(s) orally once a day , Taking Triamcinolone Acetonide 0.1 % Cream 1 application Externally Twice a day , Taking amLODIPine Besylate 2.5 MG Tablet 1 tablet Orally Once a day , Taking Lisinopril 40 MG Tablet 1 tablet Orally once daily , Taking predniSONE 20 MG Tablet 1 tablet Orally Two times a day , Taking PARoxetine HCl 20 MG Tablet 1 tablet in the morning Orally Once a day , Taking Mometasone Furoate 0.1 % Cream 1 application Externally Once a day , Taking Doxycycline Hyclate 100 MG Tablet 1 tablet Orally Once a day , Taking Trelegy Ellipta 200-62.5-25 MCG/ACT Aerosol Powder Breath Activated 1 puff Inhalation Once a day , Taking Benzonatate 200 MG Capsule 1 capsule as needed Orally Three times a day , Taking Nebulizer/Tubing/Mouthpiece - Kit as directed , Taking Ipratropium-Albuterol 0.5-2.5 (3) MG/3ML Solution 3 ml Inhalation Four times a day , Taking Trelegy Ellipta 100-62.5-25 MCG/ACT Aerosol Powder Breath Activated 1 puff Inhalation Once a day , Medication List reviewed and reconciled with the patient * Allergies: C ephalexin: swelling. Objective: * Vitals: W t:163.2, Temp:98.0, BP:130/74, HR:108, O2 Sat:98% on RA, Nurse:angela, Ht: 61, BMI:30.83. * Examination: H ip / Thigh: Hip joint: left. I nspection: no effusion, ecchymosis or deformities. P alpation: tenderness on trochanteric bursa. R davidson of motion:? restricted rotations and abduction. L -S spines: tender along lumbar spine. G ait: favoring affected side. Assessment: * Assessment: 1. T rochanteric bursitis, left hip - M70.62 (Primary) 2 . L eft hip pain - M25.552 Plan: * Treatment: * Procedure Codes: 3 075F SYST BP GE 130 - 139MM HG, 3078F DIAST BP < 80 MM HG * Follow Up: w ith ortho * Images: Billing Information: * Visit Code: 73779 Office Visit, Est Pt., Level 3. * Procedure Codes: 3075F SYST BP GE 130 - 139MM HG. 3078F DIAST BP < 80 MM HG. * Electronic signature of DEBBIE Metz on 03/10/2025 at 01:42 PM EDT Sign off status: Pending * Provider: DEBBIE Aviles Date: 0 10/24/2024 Generated for King noonan/Harmeet/Douglasitting on: 0 03/10/2025 01:42 PM EDT History and Physical Notes * HPI (History of Present Illness) Category Sub-Category Detail Notes Category Not es Hip/Thigh hip pain Pt complains of ongoing lt hip pain. Pt states that she does see pain management for her back and hip pain but she feels like PM is focused on her back. Pt states that walking is painful and she would like to know what may be causing the pain Examination Category Sub-Category Detail Notes Category Not es Hip / Thigh Gait: favoring affected side Range of motion: restricted rotations and abduction L-S spines: tender along lumbar spine Hip joint: left Inspection: no effusion, ecchymo sis or deformities Palpation: tenderness on trocha nteric bursa Consultation Request Notes Referral Date Referring Provider Referred Provider Not es 10/24/2024 Velia Mccord Orthopedics, .
--- OUTSIDE RECORDS SUMMARY | 2025-02-05 07:15 | XMS_ITS ---
Author Organization [facility] Address [address] [facility] [address] [place] [id number] Care Team Providers Care Lacquer Machine Feeder Name Role Phone Isabella Waters Primary Care Provider Beatriz Comer Unavailable [phone] Velia Mccord Unavailable [phone] Allergies Allergen (clinical drug ingredient) Drug/Non Drug Allergy documented on EMR Reaction Allergy Type Onset Date Status cephalexin Cephalexin swelling Drug Allergy Activ e Results Component Value Reference Range Notes CBC Fingerstick (in house) Reviewed date:02/06/2025 04:54:43 PM Interpretation: Performing Lab: Notes/Report: wbc 11.0 3.5 - 10 lym 32.1 15 - 50 mid 7.0 2 - 15 gran 60.9 35 - 80 rbc 5.02 3.5 - 5.5 hgb 15.0 11.5 - 16.5 hct 44.2 35 - 55 mcv 88.0 75 - 100 mch 29.9 25 - 35 mchc 34.0 31 - 38 plat 265 100 - 400 ultrasound : Axilla, right Reviewed date:02/13/2025 10:31:22 AM Interpretation:Enlarged Lymph Nodes Performing Lab: Notes/Report: Enlarged Lymph Nodes REASON FOR VISIT mass under right arm Medications Medication SIG (Take, Route, Frequency, Duration) Notes Start Date End Date Status Doxycycline Monohydrate 100 MG 1 capsule Orally Once a day; Duration: 10 days 02/05/2025 Active Nebulizer/Tubing/Mouthpiece - as directed Active Albuterol Sulfate HFA 108 (90 Base) MCG/ACT 2 puff(s) inhaled every 6 hours and prn SOB or wheezing; Duration: 90 days 06/22/2021 Active Ipratropium-Albuterol 0.5-2.5 (3) MG/3ML 3 ml Inhalation Four times a day Active Trelegy Ellipta 100-62.5-25 MCG/ACT 1 puff Inhalation Once a day 10/09/2024 Active Benzonatate 200 MG 1 capsule as needed Orally Three times a day Active Trelegy Ellipta 200-62.5-25 MCG/ACT 1 puff Inhalation Once a day 10/04/2024 Active PARoxetine HCl 20 MG 1 tablet in the mor allegra Orally Once a day; Duration: 90 days Active Mometasone Furoate 0.1 % 1 application E xternally Once a day Active predniSONE 20 MG 1 tablet Orally Two times a day; Duration: 5 day(s) 11/16/2023 Active Triamcinolone Acetonide 0.1 % 1 application Externally Twice a day 04/11/2023 Active amLODIPine Besylate 2.5 MG 1 tablet Oral ly Once a day; Duration: 90 days Active Mupirocin 2 % 1 application Pet Ambassador ally Twice a day; Duration: 5 day(s) Active Omeprazole 40 MG 1 cap(s) orally once a day; Duration: 30 day(s) 11/16/2021 Active Lisinopril 40 MG 1 tablet Orally once daily 04/07/2021 Active Diclofenac Sodium 75 MG 1 tablet as need ed Orally Twice a day Active Vital Signs Weight 160.8 lbs 02/05/2025 Blood pressure systolic 170 mm Hg 02/06/20 25 Blood pressure diastolic 92 mm Hg 025 Heart Rate 92 /min 02/05/2025 Height 61 in 02/05/2025 BMI 30.38 kg/m2 02/05/2025 Encounters Encounter Location Date Provider Diagnosis [facility] [address] [facility] [address] [place], [place] [id number] 02/05/2025 Velia Mccord Mass of right axilla R22.31 Assessments Encounter Date Diagnosis (ICD Code) Assessment Notes Treatment Notes Treatment Clinical Notes Section Notes 02/05/2025 Mass of right axilla (ICD-10 - R22.31) Plan Of Treatment Medication Medication Name Sig Start Date Stop Date Notes Doxycycline Monohydrate 100 MG 1 capsule Orally Once a day; Duration: 10 days 02/05/2025 Next Appt Details Follow Up: via phone to repo rt test results, Reason: Progress Notes * XIAO BRITODOB:1970 (55 yo F)Acc No.[id number]:02/05/2025 Progress Notes Patient: XIAO HUBER Provider: DEBBIE Aviles :1970 A ge:55 Y S ex:Female Date:02/05/2025 Address:[address] [place] [address], [id number] Pcp:Isabella Waters Subjective: * Chief Complaints: * 1 . Mass under right arm. * HPI: S houlder/Upper arm: Pt is here today with c/o mass under her right arm. Pt states that it does hurt under the spot. Pt states she is not sure when this came up. * ROS: D ERMATOLOGY: no R deisy. n o H stephany. G ASTROENTEROLOGY: no N ausea. n o V omiting. n o D iarrhea.? U ROLOGY: no D ifficulty urinating. n o B lood in urine. * Medical History: 2 Ureters on Right Side, HBP, Tobacco abuse, COPD. * Surgical History: r ight arm -ulna reduction , BTL , Partial Hysterectomy, Mesh holding Bladder- [facility] 06/28/2017, Bone Spur Removed from Neck 03/09/2022, Trigger Finger 05/2022. * Hospitalization/Major Diagno stic Procedure: [facility]-bronchitis, Pneumonia, Plurisy 05/2017, [facility]- Partial Hysterectomy, Mesh Holing Bladder 06/28/2017. * [...] application Externally Twice a day , Taking Omeprazole 40 MG Capsule Delayed [...] application Externally Once a day , Taking Trelegy Ellipta [...] puff Inhalation Once a day , Taking Albuterol Sulfate HFA 108 (90 Base) MCG/ACT Aerosol Solution 2 puff(s) inhaled every 6 hours and prn SOB or wheezing , Medication List reviewed and reconciled with the patient * Allergies: C ephalexin: swelling. Objective: * Vitals: W t: 160.8, Temp: 98.4, BP: 170/92, HR: 92, Nurse: pe, Ht: 61, Repeat BP: 150/92, BMI:30.38. * Examination: G eneral Examination: General Appearance: N AD. C hest: n ormal shape and expansion. H eart: R SR. L ungs: c lear to auscultation. E xtremities: r ight axilla with a palpable tender mass, no erythema. Assessment: * Assessment: 1. M ass of right axilla - R22.31 (Primary) Plan: * Treatment: Value Reference Range w bc 11.0 3.5 - 10 * l ym 32.1 15 - 50 * m id 7.0 2 - 15 * g ran 60.9 35 - 80 * r bc 5.02 3.5 - 5.5 * h gb 15.0 11.5 - 16.5 * h ct 44.2 35 - 55 * m cv 88.0 75 - 100 * m ch 29.9 25 - 35 * m chc 34.0 31 - 38 * p lat 265 100 - 400 * Pina Galdamez Christy 02/05/2025 12: 51:00 PM EDT > Provider reviewed results while patient in office. ?Imaging: ultrasound : Axilla, right (Performed Date - 02/11/2025)?Enlarged Lymph Nodes* Odalys Orellana 02/05/2025 12:03 :41 PM EDT > no auth required through [facility]; CPT code 37784; faxed to [facility] Celine Flores 02/13/2025 10:31:16 AM EDT > See phone encounter * Procedure Codes: 3 6416 CAPILLARY BLOOD DRAW, 76131 CBC WITH AUTO DIFF * Follow Up: v ia phone to report test results * Images: Billing Information: * Visit Code: 04157 Office Visit, Est Pt., Level 3. * Procedure Codes: 56364 CAPILLARY BLOOD DRAW. 17842 CBC WITH AUTO DIFF. * Electronic signature of DEBBIE Metz on 03/10/2025 at 01:42 PM EDT Sign off status: Pending * Provider: DEBBIE Aviles Date: 02/05/2025 Generated for King noonan/Harmeet/eTransmitting on: 03/10/2025 01:42 PM EDT History and Physical Notes * Examination Category Sub-Category Detail Notes Category Not es General Examination Heart: RSR Lungs: clear to auscultatio n Extremities: right axilla with a palpable tender mass, no erythema General Appearance: NAD Chest: normal shape and exp ansion
--- OUTSIDE RECORDS SUMMARY | 2025-02-18 10:39 | XMS_ITS ---
Author Organization [facility] Address [address] [facility] [address] [facility] [address] [place] [id number] Care Team Providers Care Consulting Manager Name Role Phone Isabella Waters Primary Care Provider ComerNorma leighine Unavailable [phone] REASON FOR VISIT due katherine, col Encounters Encounter Location Date Provider Diagnosis [place] [address] [facility] [address] [place] [id number] 02/18/2025 Isabella Waters Screening for breast cancer Z12.39 and Screening for colon cancer Z12.11 Assessments Encounter Date Diagnosis (ICD Code) Assessment Notes Treatment Notes Treatment Clinical Notes Section Notes 02/18/2025 Screening for breast cancer (ICD-10 - Z12.39) 02/18/2025 Screening for colon cancer (ICD-10 - Z12.11) Plan Of Treatment Pending Test Test Name Order Date Mammogram 02/18/2025 Cologuard 02/18/2025 Progress Notes * XIAO BRITODOB:1970 (55 yo F)Acc No.[id number]:02/18/2025 Patient: XIAO HUBER :1970 A ge:55 Y S ex:Female Address:[address] [place] [address], [place] [address] Subjective: * Chief Complaints: * D ue katherine, col * Medical History: * Surgical History: * Hospitalization/Major Diagno stic Procedure: * Medications: Objective: * Vitals: * Physical Examination: Assessment: * Assessment: 1. S creening for breast cancer - Z12.39 (Primary) 2 . S creening for colon cancer - Z12.11 Plan: * Treatment: 2.?Screening for colon cancer?LAB: [facility]* Lakeisha Damon 02/26/2025 04:2 7:13 PM EDT >sent to [facility] for Colpanfilo order . Address verified * Procedure Codes: * true * Date: Generated for King noonan/Harmeet/Marcelina on: 0 03/10/2025 01:42 PM EDT
--- OUTSIDE RECORDS SUMMARY | 2025-03-10 13:42 | XMS_ITS | Referral Summary ---
Author Organization [employer] ([place], [place], [place], [place]) Address [address] [place] [address] Care Team Providers Care Towel Stretcher Name Role Phone Unavailable Primary Care Provider [...] Plan of Treatment Not on file Insurance [facility]
--- OUTSIDE RECORDS SUMMARY | 2025-03-10 13:42 | XMS_ITS | Clinical Summary ---
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
--- OUTSIDE RECORDS SUMMARY | 2025-03-10 13:42 | XMS_ITS | Patient Health Record ---
[facility] Address [address] [place] [id number] Care Team Providers Care Drafter Automotive Design Name Role Phone Isabella Waters Primary Care Provider [phone] Beatriz Comer Unavailable [phone] Jules Cifuentes Unavailable [phone] Velia Mccord Unavailable [phone] Allergies Allergen (clinical drug ingredient) Drug/Non Drug Allergy documented on EMR Reaction Allergy Type Onset Date Status cephalexin Cephalexin swelling Drug Allergy Activ e Results Component Value Reference Range Notes Pulmonary Function Complete Reviewed date:11/11/2024 11:24:56 AM Interpretation:no evidence of obstructive lung disease Performing Lab: Notes/Report: no evidence of obstructive lung disease ultrasound : Axilla, right Reviewed date:02/13/2025 10:31:22 [...] - 38 plat 265 100 - 400 Medications Medication SIG (Take, Route, Frequency, Duration) [...] days Active Mupirocin 2 % 1 application Soil Conservationist ally Twice a day; Duration: 5 day(s) [...] Vaccine Route Administration Date Status Comme nts Hepatitis B (20 and more) Unknown 04/22/2014 Administer ed Hepatitis B (20 and more) Unknown 05/27/2014 Administer ed Hepatitis B (20 and more) Unknown 10/21/2014 Administer ed Hep A- Pediatric Unknown 07/11/2018 Administered Hep A- Pediatric Unknown 02/01/2019 Administered COVID 19 Moderna Unknown 03/16/2021 Administered Problems Problem Type SNOMED Code ICD Code Onset Dates Problem Status W/U Status Risk Notes Problem Sciatica (03511379) Sciatica (M54.30) Active confirmed Problem Hypertension (45084656) HTN (hypertension) (I10) Active confirmed Problem Vitamin D deficiency (07815869) Vitamin D deficiency (E55.9) Active confirmed Problem Screening for malignant neoplasm of cervix (799496911) Pap smear for cervical cancer screening (Z12.4) Active confirmed Problem Sciatic nerve lesion (234412104) Piriformis syndrome of right side (G57.01) Active confirmed Problem Sciatic nerve lesion (354556673) Piriformis syndrome of left side (G57.02) Active confirmed Problem Acute exacerbation of chronic obstructive airways disease (049738681) COPD exacerbation (J44.1) Active confirmed Problem Sciatica (65813398) Sciatica of left side (M54.32) Active confirmed Problem Mixed hyperlipidemia (977791107) Mixed hyperlipidemia (E78.2) Active confirmed Problem Fatty liver (711598344) Fatty liver (K76.0) Active confirmed Problem Cervical disc disease (438440027) Cervical disc disease (M50.90) Active confirmed Problem Uterine leiomyoma (74940241) Uterine leiomyoma, unspecified location (D25.9) Active confirmed Problem Carpal tunnel syndrome of right wrist (026592390800495) Carpal tunnel syndrome of right wrist (G56.01) Active confirmed Problem Polyarthritis (117494410) Polyarthritis (M13.0) Active confirmed Problem Pain in pelvis (23158702) Pelvic pain (R10.2) Active confirmed Problem Ingrowing nail (309469084) Ingrown left greater toenail (L60.0) Active confirmed Problem Cholecystitis (84707704) Cholecystitis (K81.9) Active confirmed Problem Menstrual periods irregular (75030644) Menstrual periods irregular (N92.6) Active confirmed Problem 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) Active confirmed Problem Tobacco use (741912958) Tobacco use disorder (F17.200) Active confirmed Problem Lumbar spondylosis (958895730) Lumbar spondylosis (M47.816) Active confirmed Vital Signs Heart Rate 92 /min 02/05/2025 Blood pressure diastolic 92 mm Hg 02/05/2025 Height 61 in 02/05/2025 Blood pressure systolic 170 mm Hg 02/05/2025 Weight 160.8 lbs 02/05/2025 BMI 30.38 kg/m2 02/05/2025 Encounters Encounter Location Date Provider Diagnosis [facility] [address] [place], [place] [id number] 10/01/2024 R Lb Esau Acute bronchitis J20 .9 ; COPD exacerbation J44.1 and Tobacco use disorder F17.200 [facility] [address] [place], [place] [id number] 10/04/2024 Velia Crowdy Acute bronchitis J20 .9 ; COPD exacerbation J44.1 and Tobacco use disorder F17.200 [facility] [address] [place], [place] [id number] 10/09/2024 Velia Crowdy Acute bronchitis J20 .9 ; COPD exacerbation J44.1 and Tobacco use disorder F17.200 [facility] [address] [place], [place] [id number] 10/24/2024 Velia Crowdy Trochanteric bursiti s, left hip M70.62 and Left hip pain M25.552 [facility] [address] [place], [place] [id number] 02/05/2025 Velia Crowdy Mass of right axilla R22.31 [facility] [address] [place], [place] [id number] 03/15/2024 Isabella Waters Dyshidrotic eczema L30.1 [facility] [address] [place], [place] [id number] 10/09/2024 Isabella Waters [facility] [address] [place], [place] [id number] 11/12/2024 R Lb Esau [facility] [address] [place], [place] [id number] 01/13/2025 J Mason Waters Wheezing R06.2 [facility] [address] [place], [place] [id number] 02/13/2025 Velia Crowdy [facility] [address] [place], [place] [id number] 02/18/2025 Isabella Waters Screening for breast cancer Z12.39 and Screening for colon cancer Z12.11 [facility] [address] [place], [place] [id number] 02/26/2025 Velia Mccord Assessments Encounter Date Diagnosis (ICD Code) Assessment Notes Treatment Notes Treatment Clinical Notes Section Notes 03/15/2024 Dyshidrotic eczema (ICD-10 - L30.1) 10/01/2024 Acute bronchitis (ICD-10 - J20.9) 10/01/2024 COPD exacerbation (ICD-10 - J44.1) 10/04/2024 Acute bronchitis (ICD-10 - J20.9) 10/04/2024 [...] Screening for colon cancer (ICD-10 - Z12.11) 10/09/2024 Acute bronchitis (ICD-10 - J20.9) Much improved. 10/09/2024 COPD exacerbation (ICD-10 - J44.1) Trelegy has helped. Will send in a rx. Will also check PFT's in a few weeks. 10/09/2024 Tobacco use disorder (ICD-10 - F17.200) 10/04/2024 Tobacco use disorder (ICD-10 - F17.200) 10/01/2024 Tobacco use disorder (ICD-10 - F17.200) Plan Of Treatment Pending Test Test Name Order Date Mammogram 02/18/2025 Cologuard 02/18/2025 Insurance Providers Payer Name Payer Address Payer Phone Subscriber Number Group Number Insured Name Patient Relationship to Insured Coverage Start Date Coverage End Date [facility]ETNA [facility] [address] [place] [id number] [phone] [id number] XIAO BRITO Self - patient is the [...] BTL Partial Hysterectomy, Mesh holding [facility] 06/28/2017 Bone Spur Removed from Neck 03/09/2022 Trigger Finger 05/2022 Hospitalization History Reason Date(Month/Year) [facility]- Partial Hysterectomy, M es[facility] Holing Bladder 06/28/2017 [facility] ER-bronchitis, Pneumonia, Plurisy
--- NOTE | 2025-03-10 14:09 | EXP.PAIN.SOA ---
[facility] Disclaimer: The information contained in this section may have been updated after the patient was seen, as this information can be updated by other users. Medical History Trigger finger SURGERY Depression HTN (hypertension) GERD (gastroesophageal reflux disease) Surgical History History of breast biopsy Hx of fusion of cervical spine History of surgery on arm ulnar shortening History of bladder surgery MESH History of partial hysterectomy Family History Other Family history of COPD (chronic obstructive pulmonary disease) Family history of cancer Family history of heart disease Family history of hypertension Family history of osteoarthritis Social History Smoking Status: Current every day smoker tobacco type: cigarettes alcohol intake: never substance use type: denies use current occupational status: other Travel in the last 8 weeks?: None Have you lived/traveled outside US in past 30 days?: No Contact w/someone who lives/traveled outside US past 30 days?: No Exposure to someone with infectious disease in past 14 days?: No Do you have a fever (greater than 100.4 F or 38 C)?: No Have you tested positive for COVID-19?: No Exposed to someone with COVID-19 in past 14 days?: No Do you have a sore throat?: No Do you have a cough?: No Do you have any weakness?: No Do you have any diarrhea?: No Are you experiencing any unusual bleeding?: No Do you have any muscle aches/pain?: No Do you have any abdominal pain?: No Are you experiencing loss of taste or smell?: No PM Subjective & Objective Subjective Subjective:: Patient is a pleasant 55-year-old female who presents today for the remainder of her staple removal for her pump implant. Today she rates her pain a 5 out of 10. She denies any new trauma or injury. Patient does state that overall she is doing well and does not feel like she needs any adjustments on the pump dosage. She does mention that she does stay tired but thinks it is unrelated to the pump. Patient is currently managed with morphine 1 mg/mL with a daily dose of 0.1049 mg/day. Her Musa has been reviewed and is appropriate. Review of Systems: General: No recent weight changes, no fever, no sleep disturbances Respiratory: No cough, no shortness of air, no recurring pulmonary infections Cardiovascular/peripheral vascular: No chest pain, no palpitations, no edema, no shortness of breath Gastrointestinal: No new onset incontinence, normal bowel movements reported Genitourinary: No new onset incontinence Musculoskeletal: Low back pain Psychiatric: [Normal mood/affect] Neurological: [Denies weakness in extremities], [denies balance issues] Pain at rest (0-10 scale): 5 Objective Objective:: Physical Exam: General: Alert and oriented x3, no acute distress, pleasant and cooperative Lungs: Respirations even and unlabored, symmetrical chest expansion Eyes: PERRL Musculoskeletal: Flexion and extension of lumbar [spine] somewhat guarded secondary to pain, [antalgic gait noted] Neurological: Speech clear, no gross sensory deficit Has patient had previous pain injection?: No Conservative treatment options previously tried: Home exercise plan Length of treatment: Longer than 12 weeks Meds Home Medications and Allergies Home Medications ?Medication ?Instructions ?Recorded ?Confirmed ?Type amlodipine 2.5 mg tablet 2.5 mg PO DAILY BLOOD PRESSURE 03/07/24 03/06/25 History lisinopril 20 mg tablet 20 mg PO BID BLOOD PRESSURE 03/07/24 03/06/25 History paroxetine HCl 20 mg tablet 20 mg PO DAILY MOOD 03/07/24 03/06/25 History cyclobenzaprine 10 mg tablet 10 mg PO TID #90 tabs 01/29/25 03/06/25 Rx lidocaine 5 % topical patch See Rx Instructions .Route 02/10/25 03/06/25 Rx .COMPLEX #30 patches doxycycline hyclate 100 mg tablet 100 mg PO DAILY 02/12/25 03/06/25 History sulfamethoxazole 800 1 tab PO BID #10 tabs 02/14/25 03/06/25 Rx mg-trimethoprim 160 mg tablet mupirocin 2 % topical ointment See Rx Instructions .Route 02/24/25 03/06/25 Rx .COMPLEX #22 grams diclofenac sodium 75 mg See Rx Instructions .Route 03/03/25 03/06/25 Rx tablet,delayed release .COMPLEX #60 tabs New Prescriptions to Start Prescriptions: Allergies Allergy/AdvReac Type Severity Reaction Status Date / Time cephalexin Allergy Unknown Unknown Verified 03/03/25 11:15 allergy reaction egg Allergy Vomiting Verified 03/03/25 11:15 Assessment and Plan *Assessment and plan (1) Degenerative disc disease, lumbar: Status: Acute Category: Medical Code(s): M51.369 - Other intervertebral disc degeneration, lumbar region without mention of lumbar back pain or lower extremity pain Plan We did review over again regarding the postop restrictions. We will plan on seeing her back in 1 month for reevaluation of symptoms and plan of care. Patient has been instructed to contact the clinic with any concerns before the next appointment. Dr. Coyne has reviewed this note and agrees with this plan of care. This note was dictated using voice recognition software and make contain errors or omissions. All injections are used with Lidocaine, Bupivacaine and dexamethasone. Occasionally urine drug screen is needed to verify patient's compliance with our office pain contract. This is ordered based off specific treatments related to chronic pain with the potential to abuse certain medications.
[2025-03-10 14:22] VITALS: BP 117/70; PULSE 92; RESP 18; O2SAT 98; BMI 30.2
== END 2025-03-10 23:59 | disposition home or self-care (01) ==
LOC: SC.PAIN 13:40
PROVIDERS: PCP Family Medicine; Visit Provider Nurse Practitioner Family
DX: M51.360 Other intervertebral disc degeneration, lumbar region with discogenic back pain only (principal); Z79.891 Long term (current) use of opiate analgesic
CPT/HCPCS: 99213; G0463

== ENCOUNTER 2025-05-15 06:16 | Day surgery (SDC) | payer OTHER, SELFPAY ==
--- NOTE | 2025-05-09 10:20 | EXP.HP ---
History of Present Illness *Admission Date: 05/15/25 *Reason for visit:: Positive Cologuard *History of present illness: Mrs. Wong is a 55-year-old female who is here for screening colonoscopy secondary to a positive Cologuard test. This is her first colonoscopy. The examination is deemed medically necessary for screening colonoscopy. The patient has been seen, interviewed and examined prior to the procedure by both myself and the anesthesia provider. [facility] Disclaimer: The information contained in this section may have been updated after the patient was seen, as this information can be updated by other users. Medical History Trigger finger SURGERY Depression HTN (hypertension) GERD (gastroesophageal reflux disease) Surgical History History of breast biopsy Hx of fusion of cervical spine History of surgery on arm ulnar shortening History of bladder surgery MESH History of partial hysterectomy Family History Other Emphysema of lung Family history of COPD (chronic obstructive pulmonary disease) Family history of cancer Family history of heart disease Family history of hypertension Family history of osteoarthritis Social History (Updated 05/15/25 @ 06:36 by Cary Spencer RN) Smoking Status: Current every day smoker tobacco type: cigarettes alcohol intake: never substance use type: denies use current occupational status: other Travel in the last 8 weeks?: None Have you lived/traveled outside US in past 30 days?: No Contact w/someone who lives/traveled outside US past 30 days?: No Exposure to someone with infectious disease in past 14 days?: No Do you have a fever (greater than 100.4 F or 38 C)?: No Have you tested positive for COVID-19?: No Exposed to someone with COVID-19 in past 14 days?: No Do you have a sore throat?: No Do you have a cough?: No Do you have any weakness?: No Are you experiencing any nausea/vomitting?: No Do you have any diarrhea?: No Are you experiencing any unusual bleeding?: No Do you have any muscle aches/pain?: No Do you have any abdominal pain?: No Are you experiencing loss of taste or smell?: No Other Medical History Have you received the Flu Vaccine for this season: No Have you received the Pneumonia Vaccine: No Review of Systems Review of Systems Review of systems (narrative): Negative *Cardiovascular Comments: Negative *Gastrointestinal Comments: Negative *Genitourinary Comments: Negative *Musculoskeletal Comments: Negative *Neurologic Comments: Negative Meds Home Medications and Allergies Home Medications ?Medication ?Instructions ?Recorded ?Confirmed ?Type lisinopril 20 mg tablet 40 mg PO DAILY BLOOD PRESSURE 03/07/24 05/15/25 History paroxetine HCl 20 mg tablet (Paxil) 20 mg PO DAILY MOOD 03/07/24 05/15/25 History diclofenac sodium 75 mg See Rx Instructions .Route 03/03/25 05/15/25 Rx tablet,delayed release .COMPLEX #60 tabs peg 3350-electrolytes 236 240 ml PO Q10M colonscopy #4,000 mL 05/01/25 05/15/25 Rx gram-22.74 gram-6.74 gram-5.86 gram solution (Golytely) sodium,potassium,mag sulfates 17.5 See Rx Instructions PO .COMPLEX 05/01/25 05/15/25 Rx gram-3.13 gram-1.6 gram oral soln #354 mL (Suprep Bowel Prep Kit) cyclobenzaprine 10 mg tablet 10 mg PO TID PRN Muscle Spasm 05/13/25 05/15/25 History New Prescriptions to Start Prescriptions: Allergies Allergy/AdvReac Type Severity Reaction Status Date / Time cephalexin Allergy Unknown Unknown Verified 05/15/25 06:43 allergy reaction egg Allergy Vomiting Verified 05/15/25 06:43 Exam *Routine HEENT Exam Head: Present normocephalic Eye: Present EOMI and PERRL ENT: Present mucous membranes moist *Routine Neck Exam Neck: Present supple *Routine Respiratory Exam Respiratory: Present CTA bilaterally *Routine Cardiovascular Exam Cardiovascular: Present RRR *Routine Abdominal Exam Abdominal: Present soft and normoactive bowel sounds; Absent tenderness *Routine Rectal Exam Rectal:: deferred *Routine Genitalia Exam Genitalia:: deferred *Routine Extremities Exam Extremities: Absent cyanosis, clubbing or edema *Routine Skin Exam Skin: Present warm; Absent rash *Routine Neurological Exam Neurological: Present alert and oriented X3 Assessment and Plan *Assessment and plan (1) Positive colorectal cancer screening using Cologuard test: Status: Acute Category: Medical Code(s): R19.5 - Other fecal abnormalities (2) Screening for colon cancer: Status: Acute Category: Medical Code(s): Z12.11 - Encounter for screening for malignant neoplasm of colon Plan A/P: 1. Positive Cologuard is the preprocedural diagnosis. The patient will be anesthetized/sedated using MAC sedation. The patient has been seen and examined. Cardiac and lung assessment prior to the examination is stable. Proceed with planned screening colonoscopy.
[2025-05-13 10:21] VITALS: BMI 30.2
--- NOTE | 2025-05-14 07:49 | P.PCN_ITS ---
[facility] Procedure Note Date: 05/15/25 Time: 07:43 Procedure Note:: Colonoscopy Procedure Report: Colonoscopy with cold snare polypectomy Endoscopist: Joe Muñiz II, MD Referring physician: Lb Cifuentes MD Date of Procedure: May 15, 2025 Equipment: Olympus [id number] adult colonoscope Sedation: MAC sedation Indication: Mrs. Wong is a 55-year-old female who is here for screening colonoscopy secondary to a positive Cologuard test. The patient reports no abdominal pain, weight loss, change in her bowel habits or rectal bleeding. She reports no family history of colon cancer. This is her first colonoscopy. Procedure: Prior to the procedure, a history and physical exam was performed, and patient's medications and allergies were reviewed. The risks, benefits and alternatives of the sedation and procedure were discussed with the patient. All questions were answered and informed consent was obtained. The patient was brought to the procedure room. Patient identification and proposed procedure were verified by the physician and the nurse. The patient was placed in a left lateral decubitus position and the scope was passed under direct vision. Throughout the procedure, the patient's blood pressure, pulse, and oxygen saturations were monitored continuously. The colonoscopy was accomplished without difficulty. The patient tolerated the procedure well. Findings: On digital rectal examination there was normal rectal tone. There were no external hemorrhoids. The colonoscope was introduced through the anal canal to the rectum and advanced to the cecum. The ileocecal valve and appendiceal orifice were identified. The scope was advanced a short distance into the ileum which appeared grossly normal. The scope was then withdrawn into the colon. The cecum, ascending, transverse, descending and sigmoid colon were grossly normal. There were 2 rectosigmoid polyps (5 and 6 mm) that were both removed via cold snare polypectomy. The rectum was normal. There were no other mucosal abnormalities identified. Upon retroflexion within the rectum there were grade 1 internal hemorrhoids. The preparation was excellent throughout with Ladd Preparation Score of 9. The cecal time was 12 minutes. Impression: 1. Rectosigmoid polyps x 2 (5 and 6 mm) Plan: I will follow-up the polyp histology and recommend repeat screening/surveillance colonoscopy again in 7 to 10 years based upon the pathology.
[2025-05-15 06:30] VITALS: BP 127/77; PULSE 68; RESP 16; O2SAT 97; BMI 30.2
[2025-05-15] MEDS: LACTATED RINGERS 1000ML 1,000 ML 50 ML IV (06:45)
[2025-05-15 07:48] VITALS: BP 118/68; PULSE 69; RESP 18; TEMP 36.1; O2SAT 98
[2025-05-15 07:58] VITALS: BP 126/74; PULSE 71; RESP 18; TEMP 36.1; O2SAT 98
[2025-05-15 08:08] VITALS: BP 131/64; PULSE 57; RESP 18; TEMP 36.1; O2SAT 100
[2025-05-15 08:18] VITALS: BP 133/65; PULSE 58; RESP 18; TEMP 36.1; O2SAT 97
--- NOTE | 2025-05-15 08:31 | P.PNANES_ITS ---
[facility] Disclaimer: The information contained in this section may have been updated after the patient was seen, as this information can be updated by other users. Medical History Trigger finger SURGERY Depression HTN (hypertension) GERD (gastroesophageal reflux disease) Surgical History History of breast biopsy Hx of fusion of cervical spine History of surgery on arm ulnar shortening History of bladder surgery MESH History of partial hysterectomy Family History Other Emphysema of lung Family history of COPD (chronic obstructive pulmonary disease) Family history of cancer Family history of heart disease Family history of hypertension Family history of osteoarthritis Social History (Updated 05/15/25 @ 06:36 by Cary Spencer RN) Smoking Status: Current every day smoker tobacco type: cigarettes alcohol intake: never substance use type: denies use current occupational status: other Travel in the last 8 weeks?: None Have you lived/traveled outside US in past 30 days?: No Contact w/someone who lives/traveled outside US past 30 days?: No Exposure to someone with infectious disease in past 14 days?: No Do you have a fever (greater than 100.4 F or 38 C)?: No Have you tested positive for COVID-19?: No Exposed to someone with COVID-19 in past 14 days?: No Do you have a sore throat?: No Do you have a cough?: No Do you have any weakness?: No Are you experiencing any nausea/vomitting?: No Do you have any diarrhea?: No Are you experiencing any unusual bleeding?: No Do you have any muscle aches/pain?: No Do you have any abdominal pain?: No Are you experiencing loss of taste or smell?: No [facility] Anesthesia Checklist Patient Identification Patient Identification: Verbal (Name & ) Structural Data Admitted From: Home Planned Operative Procedure/s: colonoscopy Consent for Planned Operative Procedure(s) Verified: Yes NPO Status Verified Time NPO: 00:00 Additional verifications Anesthesia Reactions: No Hx Blood Transfusions: No Blood Transfusion Reaction: No Airway Assessment Mallampati Score:: Class II C-Spine Mobility Assessed: Yes TMJ Mobility Assessed: Yes Dentition: Good Dentition Neurological Assessment Level of Consciousness: Awake, Alert and Appropriate Anesthesia Plan Anesthesia Risk discussed: Yes Anesthesia Plan: Verified ASA Class: II Anesthesia Type: MAC
== END 2025-05-15 08:28 | disposition home or self-care (01) ==
PROVIDERS: PCP Family Medicine; Visit Provider Internal Medicine Gastroenterology
PROC: 0DJD8ZZ Inspection of Lower Intestinal Tract, Via Natural or Artificial Opening Endoscopic (ICD-10-PCS; CPT 45378; principal; 2025-05-15 07:30)
DX: Z12.11 Encounter for screening for malignant neoplasm of colon (principal); K63.5 Polyp of colon; K64.0 First degree hemorrhoids; I10 Essential (primary) hypertension; F17.210 Nicotine dependence, cigarettes, uncomplicated; Z88.1 Allergy status to other antibiotic agents
CPT/HCPCS: 45385; J2003; J2704; J7120

== ENCOUNTER 2025-06-17 10:34 | Day surgery (SDC) | payer OTHER, SELFPAY ==
[2025-06-17 10:45] VITALS: BP 144/88; PULSE 85; RESP 16; O2SAT 99; BMI 28.7
[2025-06-17] MEDS: DEXAMETHASONE 10MG/ML 1ML VIAL 10 MG (10:45)
[2025-06-17 10:46] VITALS: BP 151/50; PULSE 75; RESP 18; O2SAT 98
[2025-06-17 10:47] VITALS: BP 151/50; PULSE 67; RESP 18; O2SAT 99
--- NOTE | 2025-06-17 10:48 | EXP.PAIN.PRO ---
Procedure Date: 06/17/25 Time: 10:35 Anesthesiologist:: Jayy Greer CRNA Complications:: None Pre-procedure Diagnosis:: Degenerative disc lumbar spine multilevels. Lumbar radiculopathy. Lumbar spondylosis. Multilevel lumbar facet arthropathy. Lumbar postlaminectomy syndrome. Post-procedure Diagnosis:: Same. Indications for Procedure:: Patient is a very pleasant 55-year-old female who comes our clinic today for a lumbar epidural steroid injection at the L4-5 level. Patient is describing low lumbar back pain as constant, dull, aching. Her main issue is bilateral leg radicular symptoms to the feet. She reports pain in the bilateral legs as well as numbness in her feet. She reports difficulty with ambulating secondary to the symptoms. Patient is also being managed with intrathecal morphine sulfate 1 mg/mL at a daily dose of 0.1 mg/day. Patient doing very well with her current settings on the intrathecal pain pump. She is not requesting any changes or reporting any side effects. Patient is awake alert [place] x 3. No acute distress. Flexion-extension lumbar spine guarded secondary to pain. Deep tendon reflexes upper lower extremities normal. Motor strength upper and lower extremities normal. There is no gross sensory deficit. Gait is antalgic. Patient requires wheelchair for transport [place] from the parking lot to our clinic. Procedure Details:: Procedure: Lumbar epidural steroid injection under fluoroscopy Informed consent was obtained and the risks and benefits of the procedure were explained to the patient. The patient was taken to the procedure room and noninvasive monitors placed, including noninvasive blood pressure cuff and pulse oximeter. The back was viewed using C-arm Fluoroscopy and prepped using Chloraprep as a cleansing solution and the L4-L5 interspace was palpated. Skin and subcutaneous tissues were anesthetized using lidocaine 1.5% and a 25-gauge needle. After this, an 18-gauge Touhy epidural needle was placed into the L4-L5 interspace and advanced using fluoroscopic guidance and loss of resistance to air until the epidural space was encountered. After confirmation of needle placement in the epidural space, with dye, a solution containing normal saline, 3 mL and dexamethasone 10 mg were incrementally injected into the lumbar epidural space. The patient tolerated the procedure well with no complications. The patient was observed in the Pain Clinic and then discharged home neurologically intact. Plan and Disposition:: Patient was discharged without incident.
[2025-06-17 11:00] VITALS: BP 130/86; PULSE 78; RESP 16; O2SAT 98
== END 2025-06-17 11:00 | disposition home or self-care (01) ==
PROVIDERS: PCP Family Medicine; Visit Provider Nurse Anesthetist, Certified Registered
DX: M51.16 Intervertebral disc disorders with radiculopathy, lumbar region (principal); M47.26 Other spondylosis with radiculopathy, lumbar region; M96.1 Postlaminectomy syndrome, not elsewhere classified; F32.A Depression, unspecified; I10 Essential (primary) hypertension; F17.210 Nicotine dependence, cigarettes, uncomplicated; Z98.1 Arthrodesis status; Z88.1 Allergy status to other antibiotic agents; Z91.0120 Allergy to eggs, unspecified; Z79.1 Long term (current) use of non-steroidal anti-inflammatories (NSAID); Z79.899 Other long term (current) drug therapy
CPT/HCPCS: 62323; J1100